=== PATIENT | male | born 1970 | race Caucasian/White ===

== ENCOUNTER 2019-03-06 12:02 | Emergency (ER) | payer SELFPAY ==
[2019-03-06 12:07] VITALS: BP 157/107; PULSE 83; RESP 18; TEMP 36.4; O2SAT 96; BMI 31.6
--- NOTE | 2019-03-06 12:12 | W.ED.GENADLT ---
HPI - General Adult General: Chief complaint: General Medical Stated complaint: Med refill Time Seen by Provider: 03/06/19 12:08 Source: patient Mode of arrival: ambulatory Limitations: no limitations Review of Systems General: Reports: 10 or more systems reviewed and unremarkable except in HPI and below Musc: Reports: joint pain (multiple joint pain) PFSH ED PFSH: Statuses (acute, chronic, etc) shown below reflect problem list status as previously entered and may not be historically accurate Social History Smoking and tobacco status: current every day smoker Physical Exam Const: COMMON NORMALS: no apparent distress and oriented x3 GENERAL APPEARANCE: cooperative HENMT: COMMON NORMALS: normocephalic, external ears normal, EAC's normal, TM's normal bilaterally and external nose normal HEAD & SCALP: normal to inspection and normocephalic FACE & SINUS: normal facial exam NOSE: external nose normal GENERAL EAR: hearing not grossly impaired EXTERNAL EAR: Yes external ears normal EXTERNAL AUDITORY CANAL: EAC's normal TYMPANIC MEMBRANE: TM's normal bilaterally MOUTH: oral and palatal mucosa normal THROAT: posterior oropharynx normal Eye: COMMON NORMALS: PERRL and EOMs intact bilaterally PUPIL: Yes PERRL Neck/C-Spine: COMMON NORMALS: full ROM and no lymphadenopathy Lymph: LYMPHATIC: no lymphedema noted Chest: COMMONS NORMALS: inspection of chest normal and palpation of chest normal Resp: COMMON NORMALS: normal respiratory effort and clear to auscultation bilaterally AUSCULTATION: clear to auscultation bilaterally Cardio: COMMON NORMALS: regular rate and regular rhythm RATE: regular rate RHYTHM: regular rhythm GI: COMMON NORMALS: normal to inspection, nondistended, normoactive bowel sounds and non-tender : COMMON NORMALS: Yes no CVA tenderness BLADDER/KIDNEY EXAM: Yes no CVA tenderness Back/Pelvis: COMMON NORMALS: no CVA tenderness and thoracic and lumbar spine normal to inspection Extremity: COMMON NORMALS: normal to inspection GENERAL: No edema Neuro: COMMON NORMALS: oriented x3, moves all extremities and no focal motor deficits Psych: COMMON NORMALS: mental status grossly normal and cooperative Skin: COMMON NORMALS: no rashes or lesions noted GENERAL SKIN EXAM: no rashes or lesions noted Course Vital Signs: Vital signs: Vital Signs Temperature 97.6 F 03/06/19 12:07 Pulse Rate 83 03/06/19 12:07 Respiratory Rate 18 03/06/19 12:07 Blood Pressure 157/107 03/06/19 12:07 Pulse Oximetry 96 03/06/19 12:07 MDM - General Adult MDM Narrative: Medical decision making narrative: Patient comes in today with complaints of joint pain in the wrist, hands, ankles. Patient reports been diagnosed with osteoarthritis. Patient has ran out of his meloxicam and folic acid. Exam notes no significant redness or swelling of the joints. Respirations are even lungs are clear to auscultation. Skin is warm and dry. Differential diagnosis includes ran out of medication, osteoarthritis, gout, rheumatoid arthritis. Patient was given a dose of dexamethasone due to the flare of pain that he is reported. We will also give refills for his meloxicam and folic acid. Case management will assist in referral to primary care which patient appreciated. Discharge Plan Discharge Patient Disposition: Home, Self-Care Clinical Impression: Has run out of medications Osteoarthritis Qualifiers: Osteoarthritis location: wrist Osteoarthritis type: primary Laterality: bilateral Qualified Code(s): M19.031 - Primary osteoarthritis, right wrist Condition: Stable Prescriptions: New folic acid 1 mg tablet 1 mg PO DAILY Qty: 14 RF: 0 meloxicam 15 mg tablet 15 mg PO DAILY Qty: 14 RF: 0 Discharge Orders: Discharge Order (Routine); Ordered 03/06/19 Ordered By: Rohith Fortune Referrals: Eddi Vázquez MD [Family Provider] - Discharge Diet: Usual diet Discharge Activity: Increase activity as tolerated Patient Instructions: Osteoarthritis (ED) Activity Restrictions/Additional Instructions: Activity as tolerated Gentle stretching and range of motion Ice or heat for further comfort Follow-up with primary care for further treatment Case management will contact you with assist for primary care referral Coding Level of Care Code ED Hybrid Technologist for Randg Fwd Exam Problem Focused
[2019-03-06] MEDS: dexamethasone 10 mg/mL INJ IM (12:23)
--- NOTE | 2019-03-07 15:55 | DCPLANNER ---
manager sterile had message to speak with patient about getting established with a primary care physician. manager sterile called patient at [phone] and left a voicemail for patient to return nurse outreach case manager phone call.
== END 2019-03-06 12:25 | disposition home or self-care (01) ==
PROVIDERS: Emergency Provider Nurse Practitioner Family; Family Provider Family Medicine
DX: Z76.0 Encounter for issue of repeat prescription (principal); M19.032 Primary osteoarthritis, left wrist; M19.031 Primary osteoarthritis, right wrist; F17.210 Nicotine dependence, cigarettes, uncomplicated
CPT/HCPCS: 96372; 99281; J1100

== ENCOUNTER 2019-03-24 09:18 | Emergency (ER) | payer SELFPAY ==
[2019-03-24 09:35] VITALS: BP 169/106; PULSE 86; RESP 16; TEMP 36.5; O2SAT 99; BMI 31.6
--- NOTE | 2019-03-24 09:42 | W.ED.GENADLT ---
HPI - General Adult General: Chief complaint: General Medical Stated complaint: NEEDS MEDS Time Seen by Provider: 03/24/19 09:42 Source: patient Mode of arrival: ambulatory Limitations: no limitations History of Present Illness: HPI narrative: Patient comes in requesting refill for his meloxicam and folic acid. Patient states that he has yet to get referred to primary care. Reviewed with case management she states she had attempted to call but he did not return her call. Patient was seen 1 month ago in the emergency room for similar visit. Review of Systems General: Reports: 10 or more systems reviewed and unremarkable except in HPI and below Musc: Reports: joint pain PFSH ED PFSH: Statuses (acute, chronic, etc) shown below reflect problem list status as previously entered and may not be historically accurate Social History Smoking and tobacco status: current every day smoker Physical Exam Const: COMMON NORMALS: no apparent distress and oriented x3 GENERAL APPEARANCE: cooperative HENMT: COMMON NORMALS: normocephalic, external ears normal, EAC's normal, TM's normal bilaterally and external nose normal HEAD & SCALP: normal to inspection and normocephalic FACE & SINUS: normal facial exam NOSE: external nose normal GENERAL EAR: hearing not grossly impaired EXTERNAL EAR: Yes external ears normal EXTERNAL AUDITORY CANAL: EAC's normal TYMPANIC MEMBRANE: TM's normal bilaterally MOUTH: oral and palatal mucosa normal THROAT: posterior oropharynx normal Eye: COMMON NORMALS: PERRL and EOMs intact bilaterally PUPIL: Yes PERRL Neck/C-Spine: COMMON NORMALS: full ROM and no lymphadenopathy Lymph: LYMPHATIC: no lymphedema noted Chest: COMMONS NORMALS: inspection of chest normal and palpation of chest normal Resp: COMMON NORMALS: normal respiratory effort and clear to auscultation bilaterally AUSCULTATION: clear to auscultation bilaterally Cardio: COMMON NORMALS: regular rate and regular rhythm RATE: regular rate RHYTHM: regular rhythm GI: COMMON NORMALS: normal to inspection, nondistended, normoactive bowel sounds and non-tender : COMMON NORMALS: Yes no CVA tenderness BLADDER/KIDNEY EXAM: Yes no CVA tenderness Back/Pelvis: COMMON NORMALS: no CVA tenderness and thoracic and lumbar spine normal to inspection Extremity: COMMON NORMALS: normal to inspection GENERAL: No edema Neuro: COMMON NORMALS: oriented x3, moves all extremities and no focal motor deficits Psych: COMMON NORMALS: mental status grossly normal and cooperative Skin: COMMON NORMALS: no rashes or lesions noted GENERAL SKIN EXAM: no rashes or lesions noted Course Vital Signs: Vital signs: Vital Signs Temperature 97.7 F 03/24/19 09:35 Pulse Rate 86 03/24/19 09:35 Respiratory Rate 16 03/24/19 09:35 Blood Pressure 169/106 03/24/19 09:35 Pulse Oximetry 99 03/24/19 09:35 MDM - General Adult MDM Narrative: Medical decision making narrative: Patient comes in today for concerns of needing refills on medication for arthritis. Exam notes no significant abnormalities. Patient moves all extremities well. Patient does have some increased joint size to the digits of the hand bilaterally. Differential diagnosis includes osteoarthritis, rheumatoid arthritis, malingering. Discussed with case management regarding patient's follow-up with primary care. Nora, business case analyst, visited with patient regarding primary care referral. Patient will be given refill of medication and recommended for return to the ER as needed for worsening signs and symptoms or new complaints. Patient was given a dose of dexamethasone for arthritic flare. Discharge Plan Discharge Patient Disposition: Home, Self-Care Clinical Impression: Osteoarthritis Qualifiers: Osteoarthritis location: unspecified site Osteoarthritis type: unspecified Qualified Code(s): M19.90 - Unspecified osteoarthritis, unspecified site Condition: Stable Prescriptions: New meloxicam 15 mg tablet 15 mg PO DAILY Qty: 20 RF: 0 folic acid 1 mg tablet 1 mg PO DAILY Qty: 20 RF: 0 No Action folic acid 1 mg tablet 1 mg PO DAILY Qty: 14 RF: 0 meloxicam 15 mg tablet 15 mg PO DAILY Qty: 14 RF: 0 Discharge Orders: Discharge Order (Routine); Ordered 03/24/19 Ordered By: Rohith Fortune Referrals: Eddi Vázquez MD [Family Provider] - Discharge Diet: Usual diet Discharge Activity: Resume usual activity Activity Restrictions/Additional Instructions: Follow-up with primary care Return to ER as needed for new concerns Coding Level of Care Code ED Alley Cleaner for Andres Chaudhry Exam Problem Focused
[2019-03-24] MEDS: dexamethasone 10 mg/mL INJ IM (10:19)
--- NOTE | 2019-03-24 11:16 | DCPLANNER ---
marketing manager health communications was asked to speak with patient about getting established with a primary care physician. marketing manager health communications spoke with patient, he stated that he did want to get established with a primary care physician. marketing manager health communications called the [facility] clinic, spoke with Crystal, a follow up is scheduled for Friday, March 29, 2019 at 9:40. marketing manager health communications informed patient of the scheduled appointment.
--- NOTE | 2019-04-08 15:39 | DCPLANNER ---
Patient did attend appointment scheduled with [facility].
== END 2019-03-24 10:35 | disposition home or self-care (01) ==
PROVIDERS: Emergency Provider Nurse Practitioner Family; Family Provider Family Medicine
DX: M19.90 Unspecified osteoarthritis, unspecified site (principal); F17.210 Nicotine dependence, cigarettes, uncomplicated
CPT/HCPCS: 96372; 99281; 99283; J1100

== ENCOUNTER 2019-03-31 13:07 | Outpatient (CLI) | payer SELFPAY ==
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
== END 2019-03-31 13:08 | disposition home or self-care (01) ==
PROVIDERS: Family Provider Family Medicine; PCP Family Medicine; Visit Provider Family Medicine
DX: M25.579 Pain in unspecified ankle and joints of unspecified foot (principal)
CPT/HCPCS: 73600

== ENCOUNTER 2021-06-03 13:17 | Emergency (ER) | payer SELFPAY ==
[2021-06-03 13:24] VITALS: BP 145/96; PULSE 109; RESP 18; TEMP 36.7; O2SAT 97; BMI 34.9
[2021-06-03 13:32] LABS: Glucose Point of Care 111 mg/dL (70-110)
[2021-06-03 15:00] VITALS: BP 119/83; PULSE 98; RESP 16; O2SAT 96
--- NOTE | 2021-06-03 15:05 | ED_ITS ---
HPI - General Adult General: Chief complaint: General Medical Stated complaint: arthitis pain Time Seen by Provider: 06/03/21 14:33 History of Present Illness: Patient complains about joint pain and increased urination Associated symptoms: Deny chest pain, dyspnea, headache(s), nausea, rash or vomiting Review of Systems Const: Denies: fever(s), chills or body aches Eyes: Denies: eye discomfort ENMT: Denies: throat pain Card: Denies: chest pain Resp: Denies: dyspnea GI: Denies: abdominal pain, nausea or vomiting : Reports: urinary frequency (Maybe he has diabetes, ) Musc: Reports: joint pain (Planes about hand and knee pain hands being the worst he feels like they ge) Skin/Breast: Denies: rash Neuro: Denies: headache(s) Psych: Denies: depression or suicidal ideation PFSH ED PFSH: Family History Other Cancer Diabetes Social History Smoking and tobacco status: current every day smoker cigarettes Alcohol intake: current Alcohol intake frequency: 3 or more drinks per day Physical Exam Const: COMMON NORMALS: no acute distress, patient oriented x3 and alert HENMT: COMMON NORMALS: normocephalic and external ears normal HEAD & SCALP: normocephalic EXTERNAL EAR: Yes external ears normal Eye: COMMON NORMALS: EOMs intact bilaterally Neck/C-Spine: COMMON NORMALS: no JVD Resp: COMMON NORMALS: normal respiratory effort and No use of accessory muscles Cardio: COMMON NORMALS: no JVD GI: INSPECTION: Yes normal to inspection Extremity: COMMON NORMALS: normal to inspection and full ROM Neuro: COMMON NORMALS: patient oriented x3 SENSORIUM/ORIENTATION: Yes alert Psych: COMMON NORMALS: mental status grossly normal Skin: COMMON NORMALS: no rashes or lesions noted GENERAL SKIN EXAM: no rashes or lesions noted Course Vital Signs: Vital signs: Vital Signs Temperature 98.1 F 06/03/21 13:24 Pulse Rate 98 06/03/21 15:00 Respiratory Rate 16 06/03/21 15:00 Blood Pressure 119/83 06/03/21 15:00 Pulse Oximetry 96 06/03/21 15:00 MDM - General Adult Medical Decision Making Generalized OA. No signs of diabetes. Patient requesting pain medication and said was provided. Patient encouraged follow-up with [facility]. He has not been going because he said he owes them money. Lab Data Laboratory Results POC Glucose 111 mg/dL (70-110) H 06/03/21 13:30 Discharge Plan Discharge Patient Disposition: Home Clinical Impression: Osteoarthritis, Frequency of urination and polyuria Condition: Stable Prescriptions: New Celebrex 100 mg capsule 200 mg PO BID Qty: 20 0RF Voltaren Arthritis Pain 1 % gel 4 g topical QID Qty: 100 0RF Discontinued meloxicam 15 mg tablet 15 mg PO DAILY Qty: 30 5RF No Action folic acid 1 mg tablet 1 mg PO DAILY Qty: 30 5RF hydroxyzine HCl 25 mg tablet 25 mg PO .at hs PRN (Reason: sleep) Qty: 30 0RF Discharge Orders: Discharge ED (Routine); Ordered 06/03/21 Ordered By: Sean Pollack Discharge Diet: Usual diet Discharge Activity: Resume usual activity Patient Instructions: Hyperglycemia, Osteoarthritis (ED) Activity Restrictions/Additional Instructions: Follow-up with medical provider as directed. Take medications as prescribed. Return to the ER or your medical provider if condition worsens. Please read and understand discharge instructions. If any questions ask please. Coding Level of Care Code ED Blankbook Stitching Machine Operator for Andres Chaudhry
--- NOTE | 2021-06-05 13:45 | DCPLANNER ---
manager educational had message to speak with patient about getting established with a primary care physician, unable to speak with patient or leave a voicemail at this time.
== END 2021-06-03 15:14 | disposition home or self-care (01) ==
PROVIDERS: Emergency Provider Nurse Practitioner Family
DX: M15.9 Polyosteoarthritis, unspecified (principal); R35.0 Frequency of micturition; R35.89 Other polyuria; F17.210 Nicotine dependence, cigarettes, uncomplicated
CPT/HCPCS: 36416; 82962; 99282

== ENCOUNTER → 2021-06-28 14:06 | Outpatient (BNVA) | payer SELFPAY | PROVIDERS: Visit Provider Nurse Practitioner Family | DX: I10 Essential (primary) hypertension (principal); R73.09 Other abnormal glucose | CPT/HCPCS: 80053; 80061; 83036; 84443; 85025 ==

== ENCOUNTER 2022-01-29 17:31 | Emergency (ER) | payer MEDICAID, SELFPAY ==
[2022-01-29 17:59] VITALS: BP 157/95; PULSE 88; RESP 14; TEMP 36.6; O2SAT 97; BMI 34.2
--- NOTE | 2022-01-29 19:04 | W.ED.GENADLT ---
HPI - General Adult General: Chief complaint: General Medical Stated complaint: Arthritis Pain Time Seen by Provider: 01/29/22 18:33 Source: patient Mode of arrival: ambulatory Limitations: no limitations History of Present Illness: Patient presents to the emergency department today for evaluation treatment of polyarthralgia. Patient reports a long history of this over the last couple of years and states the only time he goes to the doctor is primarily to be treated for arthritis pain. Patient states he typically takes meloxicam but does not currently have any. Patient states that the cold weather affects his joints and it has been particularly painful the last week or 2. He denies any known injuries. He has not had any fevers or swollen, red joints. Patient also states he has flareup of sciatica affecting bilateral buttock and wrapping around the lateral thighs to the anterior upper leg and knees bilaterally. Patient is still ambulatory. He denies any tingling or weakness in the lower extremities. Review of Systems General: Reports: 10 or more systems reviewed and unremarkable except in HPI and below Musc: Reports: joint pain, joint swelling and joint stiffness PFSH ED PFSH: Medical History Hypertension Family History Other Cancer Diabetes Social History Smoking and tobacco status: current every day smoker cigarettes Packs smoked per day: 1 Alcohol intake: current Alcohol intake frequency: 3 or more drinks per day Alcohol type: beer Physical Exam Const: COMMON NORMALS: no acute distress, patient oriented x3, healthy appearing and alert HENMT: COMMON NORMALS: normocephalic, atraumatic, hearing grossly normal bilaterally, Normal external nose present and moist oral mucous membranes HEAD & SCALP: normocephalic and atraumatic NOSE: Normal external nose present Eye: COMMON NORMALS: Equal, round and reactive pupils present, EOMs intact bilaterally and conjunctivae normal CONJUNCTIVA: Yes conjunctivae normal PUPIL: Yes Equal, round and reactive pupils present Neck/C-Spine: COMMON NORMALS: full ROM, no meningeal signs and no JVD Lymph: LYMPHATIC: no lymphadenopathy noted Resp: COMMON NORMALS: normal respiratory effort, No retractions and No use of accessory muscles Cardio: COMMON NORMALS: no JVD, regular rate and Peripheral pulses 2+ throughout RATE: regular rate PERIPHERAL PULSES: Peripheral pulses 2+ throughout : COMMON NORMALS: Yes no CVA tenderness BLADDER/KIDNEY EXAM: Yes no CVA tenderness Back/Pelvis: COMMON NORMALS: no CVA tenderness, thoraco-lumbar ROM normal and straight leg raise negative bilaterally Extremity: COMMON NORMALS: normal to inspection, full ROM, no joint enlargement and no calf tenderness GENERAL: Yes normal exam except as noted Neuro: COMMON NORMALS: patient oriented x3, CN's II-XII intact bilaterally, moves all extremities, no focal motor deficits and no sensory deficits noted SENSORIUM/ORIENTATION: Yes alert MENINGEAL SIGNS: Yes no meningeal signs Course Vital Signs: Vital signs: Vital Signs Temperature 97.8 F 01/29/22 17:59 Pulse Rate 88 01/29/22 17:59 Respiratory Rate 14 01/29/22 17:59 Blood Pressure 157/95 01/29/22 17:59 Pulse Oximetry 97 01/29/22 17:59 Oxygen Delivery Me thod 01/29/22 17:59 [facility] - General Adult Medical Decision Making Patient presented to the emergency department today fully ambulatory and weightbearing independently with full range of motion noted on examination. Patient's chart indicated a history of arthritis complaints and evaluations over the last year or two. Patient has previously taken muscle relaxers and NSAIDs with relief and treatment of his pain however, he is out of these medications. Patient denied any new injuries and shows no signs of septic joint concerning with fevers or bright red, swollen joints at this time. We will treat for osteoarthritis with continued use of NSAIDs and muscle relaxers. I also prescribed him Voltaren gel for him to apply to the most sore joints he has on any given day as an extra treatment for his joint discomforts. Patient should follow-up with a primary care doctor to further evaluate his arthritis as it seems to be getting worse over the last couple of years. Return precautions discussed. Differential Diagnosis Osteoarthritis, RA, septic joint, viral illness Discharge Plan Discharge Patient Disposition: Home Clinical Impression: Osteoarthritis involving multiple joints on both sides of body Condition: Stable Prescriptions: New Voltaren Arthritis Pain 1 % gel 4 g topical QID Qty: 100 0RF Rx Instructions: apply to single knee, ankle, foot; for foot includes sole/toes/top of foot meloxicam 15 mg tablet 15 mg PO DAILY MDD 1 Qty: 1 0RF Rx Instructions: Take one tab daily for arthritis pain tizanidine 2 mg capsule 2 mg PO Q8H MDD 3 cap PRN (Reason: muscle spasticity, sciatica) Qty: 30 0RF Rx Instructions: Take 1 cap every 8hrs as needed for sciatica No Action meloxicam 15 mg tablet See Rx Instructions .ROUTE .COMPLEX Qty: 90 0RF Dose Instruction: TAKE ONE TABLET BY MOUTH ONCE DAILY Rx Instructions: TAKE ONE TABLET BY MOUTH ONCE DAILY cyclobenzaprine 10 mg tablet 10 mg PO TID PRN (Reason: muscle spasm) Qty: 20 0RF Discharge Orders: Discharge ED (Routine); Ordered 01/29/22 Ordered By: Purnima Reese Discharge Activity: Limit activity as instructed Coding Level of Care Code ED Repairing Calibrator for Andres Chaudhry
[2022-01-29] MEDS: orphenadrine 30 mg/mL Inj 2 mL 60 MG IM (19:08)
[2022-01-29] MEDS: ketorolac 60 mg/2 mL INJ IM (19:08)
== END 2022-01-29 19:17 | disposition home or self-care (01) ==
PROVIDERS: Emergency Provider Physician Assistant
DX: M15.9 Polyosteoarthritis, unspecified (principal); I10 Essential (primary) hypertension; F17.210 Nicotine dependence, cigarettes, uncomplicated
CPT/HCPCS: 96372; 99284; J1885; J2360

== ENCOUNTER 2022-04-24 11:55 | Emergency (ER) | payer MEDICAID, SELFPAY ==
[2022-04-24 12:48] VITALS: BP 153/99; PULSE 66; RESP 16; O2SAT 98
--- NOTE | 2022-04-24 13:08 | W.ED.BACK ---
HPI - Back Pain/Injury General: Chief Complaint: Back Pain/Injury Stated Complaint: Lower back pain, And leg pain Time Seen by Provider: 04/24/22 12:52 History of Present Illness: Patient is a 51-year-old male comes to the ED with joint pain. Symptoms started 2 days ago. Denies any fall or trauma to cause pain. He states that right before symptoms started he was out putting up a fence for couple days and he thinks that flared up his arthritis. His pain is all throughout his joints in his legs and arms and in his back. He rates his pain currently an 8 out of 10. Associated symptoms: Deny abdominal pain, chills, dysuria, fatigue, fever(s), hematuria, nausea or vomiting Review of Systems Const: Denies: fever(s), chills or fatigue Eyes: Denies: change in vision or eye discomfort ENMT: Denies: throat pain, odynophagia, nasal discharge or nasal congestion Card: Denies: chest pain, palpitations, edema, swelling of feet/ankles, dyspnea on exertion or orthopnea Resp: Denies: dyspnea, productive cough or non-productive cough GI: Denies: abdominal pain, nausea, vomiting, diarrhea, constipation or hematochezia : Denies: flank pain, difficulty urinating, dysuria or hematuria Musc: Reports: joint pain (All throughout legs and arms bilaterally and back); Denies: neck pain, back pain or extremity swelling Skin/Breast: Denies: rash or new lesions Neuro: Denies: headache(s), numbness in extremities or weakness in extremities PFS ED PFSH: Medical History Hypertension Family History Other Cancer Diabetes Social History Smoking and tobacco status: current every day smoker cigarettes Packs smoked per day: 1 Alcohol intake: current Alcohol intake frequency: 3 or more drinks per day Alcohol type: beer Physical Exam Const: COMMON NORMALS: no acute distress, patient oriented x3 and alert HENMT: COMMON NORMALS: normocephalic HEAD & SCALP: normocephalic MOUTH: Normal oral and palatal mucosa present THROAT: posterior oropharynx normal and uvula midline Neck/C-Spine: COMMON NORMALS: supple GENERAL: Yes normal visual inspection Resp: COMMON NORMALS: normal respiratory effort, No retractions, No use of accessory muscles and clear to auscultation bilaterally AUSCULTATION: clear to auscultation bilaterally Cardio: COMMON NORMALS: regular rate, regular rhythm, S1 normal heart sound present, S2 normal heart sound present, No gallops present (Cardio), No clicks present (Cardio), No murmurs present (Cardio) and Peripheral pulses 2+ throughout RATE: regular rate RHYTHM: regular rhythm HEART SOUNDS: S1 normal heart sound present and S2 normal heart sound present PERIPHERAL PULSES: Peripheral pulses 2+ throughout GI: COMMON NORMALS: Normal to inspection, nondistended, normoactive bowel sounds present, Soft to palpation, non-tender and no masses PALPATION: Yes Soft to palpation : COMMON NORMALS: Yes no CVA tenderness BLADDER/KIDNEY EXAM: Yes no CVA tenderness Back/Pelvis: COMMON NORMALS: no CVA tenderness Extremity: COMMON NORMALS: normal to inspection, full ROM and no joint enlargement Neuro: COMMON NORMALS: patient oriented x3 SENSORIUM/ORIENTATION: Yes alert GAIT: Yes Normal gait present Skin: GENERAL SKIN EXAM: dry skin Course Vital Signs: Vital signs: Vital Signs Pulse Rate 66 04/24/22 12:48 Respiratory Rate 16 04/24/22 12:48 Blood Pressure 153/99 04/24/22 12:48 Pulse Oximetry 98 04/24/22 12:48 Oxygen Delivery Me thod 04/24/22 12:48 MDM - Back Pain/Injury Medical Decision Making Patient is a 51-year-old male comes to the ED with joint pain. Symptoms started 2 days ago. Denies any fall or trauma to cause pain. He states that right before symptoms started he was out putting up a fence for couple days and he thinks that flared up his arthritis. His pain is all throughout his joints in his legs and arms and in his back. He rates his pain currently an 8 out of 10. Vitals are stable. Exam of patient is benign and he appears nontoxic and in no acute distress. He was diagnosed with OA involving multiple joints on both sides of body and was stable for discharge home. He was sent home with a prescription for meloxicam, steroid Dosepak and a muscle relaxer. Told to follow-up with his PCP in the next week for reevaluation. Patient understood and agreed with plan. Discharge Plan Discharge Patient Disposition: Home Clinical Impression: Osteoarthritis involving multiple joints on both sides of body Condition: Stable Prescriptions: New meloxicam 15 mg tablet 15 mg PO DAILY PRN (Reason: pain) Qty: 30 0RF cyclobenzaprine 10 mg tablet 10 mg PO BID PRN (Reason: muscle spasm) Qty: 10 0RF Medrol (Tomi) 4 mg tablets,dose pack See Rx Instructions .ROUTE .COMPLEX Qty: 21 0RF Rx Instructions: orally per package directions No Action meloxicam 15 mg tablet See Rx Instructions .ROUTE .COMPLEX Qty: 90 0RF Dose Instruction: TAKE ONE TABLET BY MOUTH ONCE DAILY Rx Instructions: TAKE ONE TABLET BY MOUTH ONCE DAILY cyclobenzaprine 10 mg tablet 10 mg PO TID PRN (Reason: muscle spasm) Qty: 20 0RF Voltaren Arthritis Pain 1 % gel 4 g topical QID Qty: 100 0RF Rx Instructions: apply to single knee, ankle, foot; for foot includes sole/toes/top of foot meloxicam 15 mg tablet 15 mg PO DAILY MDD 1 Qty: 1 0RF Rx Instructions: Take one tab daily for arthritis pain tizanidine 2 mg capsule 2 mg PO Q8H MDD 3 cap PRN (Reason: muscle spasticity, sciatica) Qty: 30 0RF Rx Instructions: Take 1 cap every 8hrs as needed for sciatica Discharge Orders: Discharge ED (Routine); Ordered 04/24/22 Ordered By: Neel Wang Discharge Diet: Regular Discharge Activity: Increase activity as tolerated Patient Instructions: Osteoarthritis (DC) Activity Restrictions/Additional Instructions: Follow-up with medical provider as directed in the next 7 to 10 days for reevaluation. Rest and ice sore areas. Take medications as prescribed. Return to the ER or your medical provider if condition worsens. Please read and understand discharge instructions. Thank you for choosing [facility] for your healthcare needs today. Please realize this is an emergency room and that we are providing you with a medical screening exam and this may not be complete and all inclusive of all the testing and or work up that you may need to determine your ailment or severity of your illness. It is very important that you follow up as instructed or that you return to the Emergency Department should you have concerns or if your condition changes or worsens in any way. Coding Level of Care Code ED Ambulance Officer for Andres Chaudhry
[2022-04-24] MEDS: ketorolac 60 mg/2 mL INJ IM (13:25)
[2022-04-24] MEDS: orphenadrine 30 mg/mL Inj 2 mL 60 MG IM (13:25)
[2022-04-24] MEDS: dexamethasone 10 mg/mL INJ IM (13:25)
--- NOTE | 2022-04-25 15:23 | PC.SOCIAL ---
Addendum entered by Susan Ochoa 04/28/22 13:13: manager freelance called patient due to no primary care physician -no answer at this time. Original Note: PCP Appt Attempted to reach contact to offer PCP appt. No answer at this time.
--- NOTE | 2022-04-29 14:39 | DCPLANNER ---
district manager called patient due to no primary care physician - patient stated that his made him appointment with a provider, he is unsure of providers name.
== END 2022-04-24 13:31 | disposition home or self-care (01) ==
PROVIDERS: Emergency Provider Physician Assistant
DX: M15.8 Other polyosteoarthritis (principal); I10 Essential (primary) hypertension; F17.210 Nicotine dependence, cigarettes, uncomplicated
CPT/HCPCS: 96372; 99284; J1100; J1885; J2360

== ENCOUNTER 2022-06-04 13:36 | Emergency (ER) | payer MEDICAID, SELFPAY ==
[2022-06-04 13:49] VITALS: BP 157/95; PULSE 88; TEMP 36.6; O2SAT 96; BMI 33.6
--- NOTE | 2022-06-04 13:52 | XR_ITS ---
WS: [id number] Portable AP upright chest, 06/04/2022 Clinical Data: HTN Comparison: None. Findings: No nodules, masses or effusions are seen. The heart is normal. The pulmonary vascularity is not increased. No pneumonia or pneumothorax is seen. The aortic arch and descending thoracic aorta s how mild tortuosity. XR/XR chest 1V portable [id number] Impression: Atherosclerosis.
[2022-06-04 14:22] LABS: Basophils # 0.1 10^3/uL (0.0-0.1); Eosinophils # 0.3 10^3/uL (0.0-0.8); Eosinophils % 3.7 %; Hemoglobin 15.3 g/dL (11.7-16.6); Lymphocytes % 27.2 %; Mean Corpuscular HGB Conc 34.8 g/dL (30.0-36.0); Mean Corpuscular Hemoglobin 32.7 pg (28.0-34.0); Mean Platelet Volume 9.4 fL (7.4-10.4); Monocytes # 0.4 10^3/uL (0.2-0.9); Monocytes % 5.5 %; Neutrophils # 4.48 10^3/uL (1.8-7.7); Neutrophils % 62.2 %; Nucleated Red Blood Cells % 0 %; Platelet Count 249 10^3/cmm (130-400); Red Blood Count 4.68 10^6/uL (4.1-5.3); Red Cell Distribution Width 11.4 % (12.1-15.1); White Blood Count 7.2 10^3/uL (4.0-10.0)
[2022-06-04 14:25] LABS: Add Urine Microscopic? NO; Bilirubin Urine Neg (Negative); Blood Urine Neg (Negative); Charge for UA Resulting for Rev; Glucose Urine UA 1+ (Normal); Ketones Urine Negative (Negative); Leukocyte Esterase Urine Negative (Negative); Nitrate Urine Negative (Negative); Protein Urine Neg (Negative); Urine Appearance Clear (CLEAR); Urine Color Yellow (Yellow); Urobilinogen Urine 1 mg/dL (Negative); pH Urine 5 (5-7)
[2022-06-04 14:50] LABS: Alanine Aminotransferase 156 U/L (0-41); Alkaline Phosphatase 79 U/L (40-130); Anion Gap 16.9 (5-19); Aspartate Amino Transferase 100 U/L (0-40); Blood Urea Nitrogen 8 mg/dL (6-20); Carbon Dioxide 22 mmol/L (22-29); Chloride 102 mmol/L (98-107); Glomerular Filtration Rate 118.4 mL/min (90-130); Glucose 159 mg/dL (65-115); NT Pro B Type Natriuretic Pept 45 pg/mL (0-125); Osmolality Calculated 286 mOsm/kg (285-295); Potassium 3.9 mmol/L (3.5-5.1); Sodium 137 mmol/L (136-145); Total Bilirubin 0.6 mg/dL (0.15-1.2)
[2022-06-04 15:21] VITALS: BP 164/120; PULSE 86; RESP 16; O2SAT 95
--- NOTE | 2022-06-04 15:36 | ECG_ITS ---
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 Measurements Intervals [place] Rate: 80 P: 22 [place]: 160 QRS: 22 QRSD: 105 T: 30 QT: 392 QTc: 454 Interpretive Statements SINUS RHYTHM No previous ECG available for comparison Electronically Signed On 06-06-2022 1:29:15 CDT by Dexter Zhong M.D. [id number]
[2022-06-04 15:51] LABS: Troponin T (5th) Once 12 ng/L (0-15)
--- NOTE | 2022-06-04 16:23 | W.ED.GENADLT ---
HPI - General Adult General: Chief complaint: General Medical Stated complaint: joint pain/state high BP Time Seen by Provider: 06/04/22 15:22 History of Present Illness: Patient with a history of elevated blood pressure, elevated blood glucose, alcohol abuse, tobacco abuse, arthritis, chronic pain presents emergency department due to elevated blood pressure. Patient states that he recently started seeing a doctor again and was advised to check his blood pressure twice a day, he has been keeping a log and noted it to be elevated to 152/108 this morning and presents to the emergency department for further work-up and management. He denies any chest pain, shortness of breath, nausea, vomiting, headache, or visual changes, but does state that he was a little bit lightheaded this morning getting out of bed. He denies being on any medications aside from meloxicam for chronic pain. He also complains of chronic pain that has been going on for several years in his left shoulder, bilateral wrists, right knee, and left ankle. No other modifying factors, no other associated symptoms. Review of Systems General: Reports: 10 or more systems reviewed and unremarkable except in HPI and below PFSH ED PFSH: Medical History Hypertension Family History Other Cancer Diabetes Social History Smoking and tobacco status: current every day smoker cigarettes Packs smoked per day: 1 Alcohol intake: current Alcohol intake frequency: 3 or more drinks per day Alcohol type: beer Physical Exam Const: COMMON NORMALS: no acute distress and patient oriented x3; negative for healthy appearing GENERAL APPEARANCE: cooperative, disheveled, ill appearing (Chronically) and appears older than stated age NUTRITIONAL APPEARANCE: obese centrally obese ORIENTATION/CONSCIOUSNESS: Yes awake HENMT: COMMON NORMALS: normocephalic, atraumatic, hearing grossly normal bilaterally, external ears normal and Normal external nose present HEAD & SCALP: normocephalic and atraumatic FACE & SINUS: normal facial exam NOSE: Normal external nose present EXTERNAL EAR: Yes external ears normal MOUTH: Normal oral and palatal mucosa present THROAT: posterior oropharynx normal Eye: COMMON NORMALS: Equal, round and reactive pupils present and EOMs intact bilaterally PUPIL: Yes Equal, round and reactive pupils present Neck/C-Spine: COMMON NORMALS: supple GENERAL: Yes normal visual inspection CERVICAL SPINE: No Cervical spine tenderness and No step off deformity Chest: COMMONS NORMALS: normal inspection of the chest Resp: COMMON NORMALS: normal respiratory effort, No retractions, No use of accessory muscles and clear to auscultation bilaterally AUSCULTATION: clear to auscultation bilaterally Cardio: COMMON NORMALS: regular rate, regular rhythm and Peripheral pulses 2+ throughout RATE: regular rate RHYTHM: regular rhythm PERIPHERAL PULSES: Peripheral pulses 2+ throughout GI: COMMON NORMALS: Normal to inspection, nondistended, normoactive bowel sounds present, Soft to palpation and non-tender INSPECTION: Yes central obesity PALPATION: Yes Soft to palpation and Yes Hepatosplenomegaly present : COMMON NORMALS: Yes no CVA tenderness BLADDER/KIDNEY EXAM: Yes no CVA tenderness Back/Pelvis: COMMON NORMALS: no CVA tenderness and thoracic and lumbar spine normal to inspection THORACIC SPINE/UPPER BACK: Yes normal to inspection LUMBAR SPINE/LOWER BACK: Yes normal to inspection Extremity: COMMON NORMALS: full ROM GENERAL: No clubbing and No cyanosis RIGHT UPPER EXTREMITY: Yes wrist Right wrist: Yes inspection (Normal), Yes ROM (Intact) and Yes neurovascular exam (Normal) LEFT UPPER EXTREMITY: Yes wrist Left wrist: Yes inspection (Normal), Yes ROM (Intact) and Yes neurovascular exam (Normal) RIGHT LOWER EXTREMITY: Yes knee joint Right knee: Yes inspection (Chronic effusion), Yes palpation (Nontender) and Yes ROM (Pain limited) LEFT LOWER EXTREMITY: Yes ankle joint Left ankle: Yes inspection (Normal), Yes palpation (Mild tenderness), Yes ROM (Pain limited) and Yes neurovascular exam (Intact) Neuro: COMMON NORMALS: patient oriented x3, moves all extremities, no focal motor deficits and no sensory deficits noted Psych: COMMON NORMALS: mental status grossly normal, Normal thought process present, cooperative and activity/motor behavior normal APPEARANCE: Yes unkempt and Yes disheveled ATTITUDE: Yes calm THOUGHT PROCESS: Normal thought process present Skin: COMMON NORMALS: no rashes or lesions noted GENERAL SKIN EXAM: no rashes or lesions noted Course Vital Signs: Vital signs: Vital Signs Temperature 97.9 F 06/04/22 13:49 Pulse Rate 86 06/04/22 15:21 Respiratory Rate 16 06/04/22 15:21 Blood Pressure 164/120 06/04/22 15:21 Pulse Oximetry 95 06/04/22 15:21 Oxygen Delivery Me thod Room Air 06/04/22 15:21 MDM - General Adult Medical Decision Making Concern for untreated hypertension as well as impaired glucose tolerance/prediabetes versus type 2 diabetes. I had an extensive discussion with the patient and his regarding lifestyle modification as well as the need for follow-up for both the elevated blood pressure and elevated blood sugar and glucosuria. I also emphasized the importance of cutting back on alcohol and smoking cessation. Will start the patient on Norvasc here in the emergency department and give him a prescription, advised him to follow-up closely with his primary care doctor. Patient advised to follow-up as directed, return to the emergency department with any new or worsening symptoms or if unable to follow-up as directed or tolerate p.o. intake. Patient verbalized understanding and agreement with this plan, all questions answered. Lab Data 06/04/22 14:00 06/04/22 14:00 Radiology Impressions Chest X-Ray 06/04/22 13:52 Impression: Atherosclerosis. Laboratory Results WBC 7.2 10^3/uL (4.0-10.0) 06/04/22 14:00 RBC 4.68 10^6/uL (4.1-5.3) 06/04/22 14:00 Hgb 15.3 g/dL (11.7-16.6) 06/04/22 14:00 Hct 44.0 % (42.0-52.0) 06/04/22 14:00 MCV 94.0 fl (80-94) 06/04/22 14:00 MCH 32.7 pg (28.0-34.0) 06/04/22 14:00 MCHC 34.8 g/dL (30.0-36.0) 06/04/22 14:00 RDW 11.4 % (12.1-15.1) L 06/04/22 14:00 Plt Count 249 10^3/cmm (130-400) 06/04/22 14:00 MPV 9.4 fL (7.4-10.4) 06/04/22 14:00 Neut % (Auto) 62.2 % 06/04/22 14:00 Lymph % (Auto) 27.2 % 06/04/22 14:00 Cavalier % (Auto) 5.5 % 06/04/22 14:00 Eos % (Auto) 3.7 % 06/04/22 14:00 Baso % (Auto) 1.0 % 06/04/22 14:00 Neut # (Auto) 4.48 10^3/uL (1.8-7.7) 06/04/22 14:00 Lymph # (Auto) 2.0 10^3/uL (0.8-4.8) 06/04/22 14:00 Cavalier # (Auto) 0.4 10^3/uL (0.2-0.9) 06/04/22 14:00 Eos # (Auto) 0.3 10^3/uL (0.0-0.8) 06/04/22 14:00 Baso # (Auto) 0.1 10^3/uL (0.0-0.1) 06/04/22 14:00 Nucleated RBC % (auto) 0 % 06/04/22 14:00 Nucleated RBCs # 0.0 /100WBC 06/04/22 14:00 Sodium 137 mmol/L (136-145) 06/04/22 14:00 Potassium 3.9 mmol/L (3.5-5.1) 06/04/22 14:00 Chloride 102 mmol/L (98-107) 06/04/22 14:00 Carbon Dioxide 22 mmol/L (22-29) 06/04/22 14:00 Anion Gap 16.9 (5-19) 06/04/22 14:00 BUN 8 mg/dL (6-20) 06/04/22 14:00 Creatinine 0.7 mg/dL (0.7-1.2) 06/04/22 14:00 GFR Calculation 118.4 mL/min (90-130) 06/04/22 14:00 Glucose 159 mg/dL (65-115) H 06/04/22 14:00 Calculated Osmolality 286 mOsm/kg (285-295) 06/04/22 14:00 Calcium 9.0 mg/dL (8.5-10.5) 06/04/22 14:00 Total Bilirubin 0.6 mg/dL (0.15-1.2) 06/04/22 14:00 AST 100 U/L (0-40) H 06/04/22 14:00 ALT 156 U/L (0-41) H 06/04/22 14:00 Alkaline Phosphatase 79 U/L (40-130) 06/04/22 14:00 Troponin T Gen 5 ng/L 12 ng/L (0-15) 06/04/22 14:00 NT-Pro-B Natriuret Pep 45 pg/mL (0-125) 06/04/22 14:00 Total Protein 7.0 g/dL (6.6-8.7) 06/04/22 14:00 Albumin 4.0 g/dL (3.5-5.2) 06/04/22 14:00 Globulin 3.0 g/dL (1.3-4.6) 06/04/22 14:00 Urine Color Yellow (Yellow) 06/04/22 14:00 Urine Appearance Clear (CLEAR) 06/04/22 14:00 Urine pH 5 (5-7) 06/04/22 14:00 Ur Specific [place] 1.020 (1.005-1.030) 06/04/22 14:00 Urine Protein Neg (Negative) 06/04/22 14:00 Urine Glucose (UA) 1+ (Normal) H 06/04/22 14:00 Urine Ketones Negative (Negative) 06/04/22 14:00 Urine Blood Neg (Negative) 06/04/22 14:00 Urine Nitrate Negative (Negative) 06/04/22 14:00 Urine Bilirubin Neg (Negative) 06/04/22 14:00 Urine Urobilinogen 1 mg/dL (Negative) H 06/04/22 14:00 Ur Leukocyte Esterase Negative (Negative) 06/04/22 14:00 Discharge Plan Discharge Patient Disposition: Home Clinical Impression: Elevated glucose level, Body aches, Alcohol abuse, Tobacco abuse Hypertension Qualifiers: Hypertension type: unspecified Qualified Code(s): I10 - Essential (primary) hypertension Condition: Stable Prescriptions: New Norvasc 10 mg tablet 10 mg PO DAILY Qty: 30 0RF No Action meloxicam 15 mg tablet 15 mg PO DAILY PRN (Reason: pain) Qty: 30 0RF Discharge Orders: Discharge ED (Routine); Ordered 06/04/22 Ordered By: Kyler Doss Referrals: Patricio Jj MD [Primary Care Provider] - 1 week Patient Instructions: Pain Management, Abuse of Alcohol (ED), How to Stop Smoking (ED), Hypertension (ED), Diabetes and Exercise (ED), Diabetic Kidney Disease (ED), Amlodipine (By mouth) Coding Level of Care Code ED Pumper Gager Apprentice for Andres Chaudhry
[2022-06-04 16:30] VITALS: BP 161/102; PULSE 85; O2SAT 94
[2022-06-04] MEDS: amlodipine 10 mg Tablet PO (16:33)
[2022-06-04 16:59] VITALS: BP 156/97; PULSE 74; O2SAT 95
== END 2022-06-04 17:00 | disposition home or self-care (01) ==
PROVIDERS: Family Medicine; Emergency Provider Emergency Medicine; PCP Family Medicine
DX: I10 Essential (primary) hypertension (principal); R52 Pain, unspecified; R73.9 Hyperglycemia, unspecified; F17.210 Nicotine dependence, cigarettes, uncomplicated
CPT/HCPCS: 36415; 71045; 80053; 81003; 83880; 84484; 85025; 93005; 99285

== ENCOUNTER 2022-06-19 09:20 | Outpatient (CLI) | payer MEDICAID, SELFPAY ==
--- NOTE | 2022-06-19 09:30 | MR_ITS ---
WS: [id number] EXAMINATION: MR shoulder LT wo con* [id number] ORDER DATE: 06/19/2022 9:48 AM COMPARISON: None. HISTORY: pain CONTRAST: None. TECHNIQUE: Axial T2 STAR, coronal proton density fat sat, sagittal T2 fat sat, sagittal proton densit y fat sat, axial proton density fat sat, coronal T2 fat sat, and coronal T1 performed. After contrast , axial T1 fat sat, coronal T1 fat sat, and sagittal T1 fat sat were performed. FINDINGS: Advanced degenerative arthritis AC joint. Moderate downsloping acromion. Narrowing of the subacromial space. Synovial thickening. Mild edema at the AC joint. Small amount of subacromial and subdeltoid f luid. Evidence of prior postoperative changes in the humeral head with rotator cuff repair. Evidence of loretta or high-grade rotator cuff tear. Anterior fibers supraspinatus appear intact. Large defect in the mid supraspinatus tendon retraction to the level of the glenohumeral joint suspicious for recurrent tear . Infraspinatus has been repaired and appears intact distally with a tiny tear at the distal insertio n. Teres minor appears intact. Small amount of subcoracoid fluid. Fluid and edema involving the subscapularis tendon sheath which appears intact distally with prior in trasubstance insertional tears. Biceps tendon appears intact along the lateral aspect of the bicipita l groove. Proximal biceps tendon difficult to visualize. Tiny intra-articular biceps tendon. Normal bone marrow signal in the humeral head and bony glenoid. Glenoid labrum appears grossly intact . Small joint effusion. MR/MR shoulder LT wo con* [id number] IMPRESSION: 1. Evidence of prior high-grade rotator cuff tear with rotator cuff anchors an d repair. 2. Suspected recurrent high-grade tear involving the majority of the supraspin atus with retraction to the level of the glenohumeral joint. Some fibers are in tact anteriorly. 3. Infraspinatus has been repaired and appears intact distally with small inse rtional tear. 4. Fluid in the subcoracoid bursa with irregularity and thinning of the subsca pularis tendon. Suspected intrasubstance tear and insertional tears involving t he subscapularis. Some this may be chronic or postoperative. 5. Biceps tendon is difficult to visualize proximally due to hardware artifact . This appears anchored along the lateral aspect of the bicipital groove. Tiny intra-articular biceps tendon. 6. Advanced degenerative arthritis AC joint with loss of the subacromial space . Small amount of subacromial subdeltoid fluid.
== END 2022-06-19 09:21 | disposition home or self-care (01) ==
LOC: RAD 09:24
PROVIDERS: PCP Family Medicine; Visit Provider Orthopaedic Surgery
DX: M19.012 Primary osteoarthritis, left shoulder (principal); Z98.890 Other specified postprocedural states
CPT/HCPCS: 73221

== ENCOUNTER → 2022-06-30 14:10 | Outpatient (BNVA) | payer MEDICAID, SELFPAY | PROVIDERS: PCP Family Medicine; Visit Provider Podiatrist Foot & Ankle Surgery | DX: M19.072 Primary osteoarthritis, left ankle and foot (principal); S93.402A Sprain of unspecified ligament of left ankle, initial encounter; W01.0XXA Fall on same level from slipping, tripping and stumbling without subsequent striking against object, initial encounter | CPT/HCPCS: 73610 ==

== ENCOUNTER 2022-06-30 15:36 | Outpatient (CLI) | payer MEDICAID, SELFPAY | END 2022-06-30 15:37 | disposition home or self-care (01) | LOC: SPT 15:38 | PROVIDERS: PCP Family Medicine; Visit Provider Podiatrist Foot & Ankle Surgery | DX: Z46.89 Encounter for fitting and adjustment of other specified devices (principal); M25.572 Pain in left ankle and joints of left foot | CPT/HCPCS: 97760; L1902 ==

== ENCOUNTER 2022-09-08 13:29 | Outpatient (CLI) | payer MEDICAID, SELFPAY ==
--- NOTE | 2022-09-08 13:39 | CT_ITS ---
WS: [id number] LDCT LUNG CANCER SCREENING TECHNIQUE: Noncontrast CT of the chest with coronal and sagittal reformatted images. CLINICAL INFORMATION: NICOTINE DEPENDENCE, CIGARETTES COMPARISON: None. DLP: 126.31 mGy.cm DIvol: Mean CTDIvol: 3.30 (mGy) All CT scans at [facility] use at least one of these dose optimization techniques: automat ed exposure control; mA and/or kV adjustment per patient size (includes targeted exams where dose is matched to clinical indication); or iterative reconstruction. FINDINGS: Lungs are well aerated. No acute pulmonary infiltrates. Tiny noncalcified nodule RIGHT uppe r lobe measuring 3 mm. Tiny calcified granuloma RIGHT lower lobe. Tiny calcified granuloma LEFT upper lobe. Subpleural nodule LEFT upper lobe anteriorly measuring 6.5 mm. Normal caliber thoracic aorta. Mild coronary calcification. No mediastinal or hilar lymphadenopathy. No axillary lymphadenopathy. Adrenal glands are normal. Small esophageal hiatal hernia. Hypertrophic changes thoracic spine. CT/CT lung screening [id number] IMPRESSION:Subpleural nodule LEFT upper lobe anteriorly measuring 6.5 mm. Recom mend 6 month follow-up. LUNG-RADS: 3-Probably Benign FOLLOW UP: 6 Month LDCT
== END 2022-09-08 13:30 | disposition home or self-care (01) ==
LOC: RAD 13:33
PROVIDERS: PCP Family Medicine; Visit Provider Family Medicine
DX: Z12.2 Encounter for screening for malignant neoplasm of respiratory organs (principal); F17.210 Nicotine dependence, cigarettes, uncomplicated
CPT/HCPCS: 71271

== ENCOUNTER 2023-05-14 06:34 | Day surgery (SDC) | payer MEDICAID, SELFPAY ==
--- NOTE | 2023-05-14 06:39 | W.PM.OPSFHP ---
Same Day Surgery H&P Indication for Procedure/HPI DATE OF PROCEDURE: May 14, 2023 CHIEF COMPLAINT/INDICATIONFOR SURGICAL PROCEDURE: Abdominal pain PREOP DIAGNOSIS: GERD PLANNED PROCEDURE: Operation Date: 05/14/23 07:40 Proposed Procedures p [id number] egd K80.20, R10.9,R12(Not Applicable) - Daniel Davis MD Medications/Allergies* Home Medications Medication Instructions Recorded Confirmed Type metformin 500 mg tablet 500 mg PO BID 06/25/22 05/12/23 History budesonide-formoterol HFA 160 inhalation 03/13/23 03/13/23 History mcg-4.5 mcg/actuation aerosol inhaler (Symbicort) cyclobenzaprine 10 mg tablet 10 mg PO TID 03/13/23 05/12/23 History gabapentin 300 mg capsule 300 mg PO TID 03/13/23 05/12/23 History lisinopril 20 mg tablet 20 mg PO ONCE 03/13/23 05/12/23 History triamcinolone acetonide 0.1 % applic topical 03/13/23 03/13/23 History topical cream Allergies/Adverse Reactions Allergy/AdvReac Type Severity Reaction Status Date / Time aspirin Allergy ALGY-Hives Verified 03/13/23 09:14 Pertinent History/Comorbid Conditions* Medical History (Updated 03/13/23 @ 13:11 by Daniel Davis MD) Hypertension Family History (Updated 03/29/19 @ 09:40 by Angélica Bustillos LPN) Diabetes Cancer Social History Smoking and tobacco/nicotine status: current every day tobacco/nicotine user cigarettes Packs smoked per day: 1 Alcohol intake: current Alcohol intake frequency: 3 or more drinks per day Alcohol type: beer Pertinent Exam Findings alert, oriented x 3, clear to auscultation bilaterally and regular rate & rhythm Recommendations Surgery/Procedure today Coding Level of Care Code Acute Code for Chg Fwd
--- NOTE | 2023-05-14 06:50 | ANES.PREANE2 ---
Pre-Anesthetic Assessment Height/Weight: Height 1.85 m Preop Diagnosis: GERD Operation Date: 05/14/23 07:40 Proposed Procedures p [id number] egd K80.20, R10.9,R12(Not Applicable) - Daniel Davis MD Familial anesthetic complications: None Was Beta Milla taken within 24 hours: N/A Was Clonidine taken within 24 hours: N/A Last intake: > 8 hrs Social Alcohol (6 pack of beer a night) and Tobacco Exam alert, oriented x 3, clear to auscultation bilaterally and regular rate & rhythm Airway Mallampati: Class I Dentition: other (no teeth) Pulmonary Chronic Obstructive Pulmonary Disease (coughing fits) CV/HEM Hypertension Metabolic Diabetes Mellitus Anesthetic Plan ASA status: 3 Anesthesia: MAC Risk of > 500 ml blood loss (7ml/kg in children): No Medications/Allergies Home Medications Medication Instructions Recorded Confirmed Last Taken Type meloxicam 15 mg tablet 15 mg PO DAILY PRN pain #30 tabs 04/24/22 05/12/23 05/13/23 Rx amlodipine 10 mg tablet (Norvasc) 10 mg PO DAILY #30 tabs 06/04/22 05/12/23 05/13/23 Rx metformin 500 mg tablet 500 mg PO BID 06/25/22 05/12/23 05/13/23 History ASO Brace #1 ea 06/30/22 03/13/23 05/13/23 Rx budesonide-formoterol HFA 160 1 inh inhalation 03/13/23 03/13/23 05/13/23 History mcg-4.5 mcg/actuation aerosol inhaler (Symbicort) cyclobenzaprine 10 mg tablet 10 mg PO TID 03/13/23 05/12/23 05/13/23 History gabapentin 300 mg capsule 300 mg PO TID 03/13/23 05/12/23 05/13/23 History lisinopril 20 mg tablet 20 mg PO ONCE 03/13/23 05/12/23 05/13/23 History triamcinolone acetonide 0.1 % 1 applic topical DAILY 03/13/23 05/14/23 05/13/23 History topical cream (Triderm) Allergies Allergy/AdvReac Type Severity Reaction Status Date / Time aspirin Allergy ALGY-Hives Verified 05/14/23 06:45 PFSH Anesthesia Medical History Hypertension Family History Other Cancer Diabetes Social History Smoking and tobacco/nicotine status: current every day tobacco/nicotine user cigarettes Packs smoked per day: 1 Alcohol intake: current Alcohol intake frequency: 3 or more drinks per day Alcohol type: beer Data Anesthesia Cardiac Studies: No Data to Display
[2023-05-14 06:52] VITALS: BP 159/116; PULSE 94; RESP 18; TEMP 36.7; O2SAT 96; BMI 33.6
[2023-05-14] MEDS: sodium chloride 0.9% 1,000 ML 30 ML IV (06:59)
[2023-05-14 07:03] LABS: Glucose Point of Care 141 mg/dL (70-110)
[2023-05-14 07:51] VITALS: BP 150/89; PULSE 109; RESP 18; TEMP 36.6; O2SAT 94
[2023-05-14 08:01] VITALS: BP 112/83; PULSE 100; RESP 18; O2SAT 94
[2023-05-14 08:10] VITALS: BP 131/85; PULSE 91; RESP 18; O2SAT 96
--- NOTE | 2023-05-14 08:25 | ANE.PACU2 ---
Inpatient post-anesthesia follow up: Airway intact: Yes Vital signs: Temperature 97.9 F Pulse Rate 91 Respiratory Rate 18 Blood Pressure 131/85 Pulse Oximetry 96 Oxygen Delivery Me thod Room Air Oxygen Flow Rate Fraction of Inspir ed Oxygen Hydration adequate: Yes Nausea and vomiting: No Pain level: 1 Mental status: Baseline
== END 2023-05-14 08:25 | disposition home or self-care (01) ==
PROVIDERS: PCP Family Medicine; Visit Provider Surgery
PROC: 0DJ08ZZ Inspection of Upper Intestinal Tract, Via Natural or Artificial Opening Endoscopic (ICD-10-PCS; CPT 43235; principal; 2023-05-14 07:40)
DX: R12 Heartburn (principal); R10.9 Unspecified abdominal pain; K80.20 Calculus of gallbladder without cholecystitis without obstruction; K44.9 Diaphragmatic hernia without obstruction or gangrene; K21.00 Gastro-esophageal reflux disease with esophagitis, without bleeding; K29.50 Unspecified chronic gastritis without bleeding
CPT/HCPCS: 36416; 43239; 82962; 88305; 88342; J2704; J7030

== ENCOUNTER 2023-06-10 09:16 | Outpatient (CLI) | payer MEDICAID, SELFPAY ==
--- NOTE | 2023-06-10 09:27 | MR_ITS ---
WS: [id number] MRI LUMBAR SPINE NONCONTRAST TECHNIQUE: Sagittal T1, T2 and STIR imaging. Axial T1 and T2 imaging. CLINICAL INFORMATION: SPINAL STENOSIS OF LUMBAR REGION COMPARISON: None. FINDINGS: Mild central canal stenosis in the cervical spine grounds worker imaging at C3-C7. Grade 1 anterolisthesis C7 on T1. This could be further evaluated with cervical spine MRI. Slight indentation cervical cord at C 7-T1. Tiny central protrusion T10-11. L1-L2: Mild annular bulging. Shallow central protrusion. Mild facet arthropathy. Mild LEFT foraminal narrowing. L2-L3: Mild disc bulge with endplate ridging. Spinal canal is patent. Mild facet arthropathy. Moderat e LEFT and mild RIGHT foraminal narrowing. Slight impingement exiting LEFT L2 nerve root with a LEFT foraminal protrusion. L3-L4: Mild disc bulging with endplate ridging. Tiny RIGHT foraminal protrusion with mild RIGHT buddy inal narrowing. Spinal canal and LEFT foramen are patent. Mild facet arthropathy. L4-L5: Mild disc bulge with impingement RIGHT subarticular recess and traversing RIGHT L5 nerve root. Moderate facet arthropathy. RIGHT foraminal protrusion impinges the exiting RIGHT L4 nerve root late rally. LEFT foramen is patent. L5-S1: Mild disc bulging. Mild facet arthropathy with small facet effusions. Moderate bilateral buddy inal narrowing with impingement of the exiting L5 nerve roots bilaterally. Visualized pelvic bony structures: Normal. Paravertebral soft tissues: Normal. IMPRESSION: 1. Mild lumbar curve. No acute compression. 2. Disc bulging L4-5 with impingement RIGHT subarticular recess and traversing RIGHT L5 nerve root. Moderate RIGHT foraminal narrowing at this level impinges the exiting RIGHT L4 nerve root laterally. 3. Moderate bilateral L5-S1 foraminal narrowing impinges the exiting L5 nerve roots bilaterally. 4. Slight narrowing of the RIGHT subarticular recess L3-4. 5. Moderate LEFT L2-3 foraminal narrowing with a small LEFT foraminal protrusion. 6. Mild cervical central canal stenosis on the grounds worker imaging described above.
== END 2023-06-10 09:17 | disposition home or self-care (01) ==
LOC: RAD 09:16
PROVIDERS: PCP Family Medicine; Visit Provider Family Medicine
DX: M48.062 Spinal stenosis, lumbar region with neurogenic claudication (principal); M51.36 Other intervertebral disc degeneration, lumbar region; M48.07 Spinal stenosis, lumbosacral region
CPT/HCPCS: 72148

== ENCOUNTER 2023-12-07 12:43 | Emergency (ER) | payer MEDICAID, SELFPAY ==
--- NOTE | 2023-12-07 12:45 | XRR_ITS ---
PROCEDURE INFORMATION: Exam: XR Right Knee Exam date and time: 12/07/2023 1:17 PM Age: 53 years old Clinical indication: Pain; Knee; Right; Patient HX: PT denies injury TECHNIQUE: Imaging protocol: Radiologic exam of the right knee. Views: 3 views. COMPARISON: CR XR knee RT 3V* [id number] 05/02/2022 9:24 AM FINDINGS: Bones/joints: [id number] tricompartmental DJD of the knee with relatively minor joint space narrowing but bulky marginal osteophyte formation particularly at the patellofemoral joint space. Large joint effusion. Soft tissues: Soft tissue swelling of the anterior knee. 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 Soft tissue swelling of the anterior knee.
[2023-12-07 12:54] VITALS: BP 123/75; PULSE 96; RESP 16; TEMP 36.7; O2SAT 96
[2023-12-07 15:00] VITALS: BP 120/78; PULSE 90; O2SAT 97
[2023-12-07 15:55] LABS: Basophils # 0.1 10^3/uL (0.0-0.1); Basophils % 0.6 %; Eosinophils # 0.4 10^3/uL (0.0-0.8); Eosinophils % 3.5 %; Hematocrit 42.2 % (37-53); Lymphocytes # 3.3 10^3/uL (0.8-4.8); Lymphocytes % 31.6 %; Mean Corpuscular HGB Conc 35.1 g/dL (30-55); Mean Corpuscular Hemoglobin 33.9 pg (27-33); Mean Corpuscular Volume 96.6 fl (82-101); Mean Platelet Volume 8.9 fL (7.4-10.4); Monocytes # 0.8 10^3/uL (0.2-0.9); Monocytes % 7.9 %; Neutrophils # 5.83 10^3/uL (1.8-7.7); Nucleated Red Blood Cells % 0 %; Platelet Count 252 10^3/cmm (157-399); Red Blood Count 4.37 10^6/uL (3.85-5.65); Red Cell Distribution Width 11.6 % (12.1-15.1); White Blood Count 10.39 10^3/uL (3.29-11.43)
[2023-12-07 15:58] LABS: Bilirubin Urine Negative (Negative); Blood Urine Negative (Negative); Glucose Urine UA Negative (Normal); Ketones Urine Negative (Negative); Leukocyte Esterase Urine Negative (Negative); Nitrate Urine Negative (Negative); Protein Urine Negative (Negative); Specific Gravity, Urine 1.004 (1.005-1.030); Urine Appearance Clear (CLEAR); Urine Color Yellow (Yellow); Urobilinogen Urine 0.2 mg/dL (Negative); pH Urine 5.5 (5-7)
[2023-12-07 16:03] LABS: Add Urine Microscopic? YES; Bacteria Urine None Seen /hpf; Hyaline Casts Urine 0-4 /lpf; RBC Urine 0-2 /hpf (0-2); Squamous Epithelial Cell Urine 0-5 /hpf (0-5); WBC Urine 0-5 /hpf (0-5)
[2023-12-07 16:03] LABS: Erythrocyte Sedimentation Rate 15 mm/hr (0-10)
[2023-12-07 16:12] LABS: Alanine Aminotransferase 18 U/L (0-41); Albumin Level 4.2 g/dL (3.5-5.2); Alkaline Phosphatase 69 U/L (40-130); Anion Gap 14.9 (5-19); Aspartate Amino Transferase 18 U/L (0-40); Blood Urea Nitrogen 5 mg/dL (6-20); C Reactive Protein 20.3 mg/L (0.0-4.9); Calcium 8.7 mg/dL (8.5-10.5); Carbon Dioxide 27 mmol/L (22-29); Chloride 92 mmol/L (98-107); Creatinine Clr Calc Pharmacy 218.1142; Globulin 3.9 g/dL (1.3-4.6); Glomerular Filtration Rate 173.3 mL/min (90-130); Glucose 102 mg/dL (65-115); Osmolality Calculated 267 mOsm/kg (285-295); Potassium 3.9 mmol/L (3.5-5.1); Sodium 130 mmol/L (136-145); Total Bilirubin 0.3 mg/dL (0.15-1.2); Total Protein 8.1 g/dL (6.6-8.7)
--- NOTE | 2023-12-07 16:49 | ED_ITS ---
HPI - Extremity Problem 2 General: Chief complaint: Extremity Injury, Lower Stated complaint: rt knee injury Time Seen by Provider: 12/07/23 14:21 History of Present Illness: 53-year-old male presents emergency room with complaint of swelling in his right knee for the last 3 to 4 days to began after he been down on his knees for an extended period of time doing some digging. No skin abrasion or ulceration no fever sweats or chills no puncture wounds. Associated symptoms: Deny chest pain, fever(s) or rash Related Data Home Medications Medication Instructions Recorded Confirmed metformin 500 mg tablet 500 mg PO BID 06/25/22 12/07/23 budesonide-formoterol HFA 160 1 inh inhalation DAILY 03/13/23 12/07/23 mcg-4.5 mcg/actuation aerosol inhaler (Symbicort) cyclobenzaprine 10 mg tablet 10 mg PO TID 03/13/23 12/07/23 gabapentin 300 mg capsule 300 mg PO TID 03/13/23 12/07/23 lisinopril 20 mg tablet 20 mg PO ONCE 03/13/23 12/07/23 triamcinolone acetonide 0.1 % 1 applic topical DAILY 03/13/23 12/07/23 topical cream (Triderm) baclofen 10 mg tablet 10 mg PO TID 12/07/23 12/07/23 celecoxib 200 mg capsule 200 mg PO DAILY 12/07/23 12/07/23 fluticasone propionate 50 2 spray intranasal DAILY 12/07/23 12/07/23 mcg/actuation nasal spray,suspension furosemide 40 mg tablet 40 mg PO DAILY 12/07/23 12/07/23 potassium chloride 20 mEq 20 meq PO DAILY 12/07/23 12/07/23 tablet,extended release(part/cryst) tiotropium bromide 18 mcg capsule 1 cap inhalation DAILY 12/07/23 12/07/23 with inhalation device (Spiriva with HandiHaler) Previous Rx's Medication Instructions Recorded amlodipine 10 mg tablet (Norvasc) 10 mg PO DAILY #30 tabs 06/04/22 ASO Brace #1 ea 06/30/22 pantoprazole 40 mg tablet,delayed 40 mg PO BID #120 tabs 05/14/23 release hydrocodone 5 mg-acetaminophen 325 1 tab PO Q6H PRN pain #20 tabs 12/07/23 mg tablet prednisone 20 mg tablet 20 mg PO TID #15 tabs 12/07/23 Allergies Allergy/AdvReac Type Severity Reaction Status Date / Time aspirin Allergy ALGY-Hives Verified 12/07/23 12:59 Review of Systems 2 Const: Denies: fever(s) or chills Card: Denies: chest pain Resp: Denies: dyspnea GI: Denies: abdominal pain : Denies: dysuria, urinary frequency or urinary urgency Musc: Denies: neck pain or back pain Skin/Breast: Denies: rash PFSH ED 2 PFSH: Medical History Hypertension Family History Other Cancer Diabetes Social History Smoking and tobacco/nicotine status: current every day tobacco/nicotine user cigarettes Packs smoked per day: 1 Alcohol intake: current Alcohol intake frequency: 3 or more drinks per day Alcohol type: beer Physical Exam 2 Const: COMMON NORMALS: no acute distress GENERAL APPEARANCE: cooperative and comfortable ORIENTATION/CONSCIOUSNESS: Yes awake, Yes oriented to person, Yes oriented to place and Yes oriented to time HENMT: COMMON NORMALS: normocephalic, atraumatic and hearing grossly normal bilaterally HEAD & SCALP: normocephalic and atraumatic Resp: COMMON NORMALS: normal respiratory effort, No retractions, No use of accessory muscles and clear to auscultation bilaterally AUSCULTATION: clear to auscultation bilaterally Cardio: COMMON NORMALS: regular rate, regular rhythm and No murmurs present (Cardio) RATE: regular rate RHYTHM: regular rhythm Extremity: COMMON NORMALS: normal to inspection, capillary refill normal, no clubbing, cyanosis or edema, no calf tenderness and no pedal edema OTHER: Examination of the right knee patient has bursal swelling suprapatellar no redness no inflammation no skin breakdown no ulceration laceration or puncture wounds noted. Full range of motion knee ligaments are stable. Neuro: SENSORIUM/ORIENTATION: Yes oriented to person, Yes oriented to place and Yes oriented to time Skin: COMMON NORMALS: no rashes or lesions noted GENERAL SKIN EXAM: no rashes or lesions noted Course 2 Vital Signs: Vital signs: Vital Signs Temperature 98.1 F 12/07/23 12:54 Pulse Rate 100 12/07/23 17:04 Respiratory Rate 16 12/07/23 12:54 Blood Pressure 116/81 12/07/23 17:04 Pulse Oximetry 97 12/07/23 17:04 Oxygen Delivery Me thod Room Air 12/07/23 15:00 MDM - Extremity (Nontraumatic) Medical Decision Making No leukocytosis sed rate minimally elevated. Will discharge patient home with prednisone taper and pain medications. Follow-up with orthopedics. Return if develops fever redness or change in symptoms suspect bursitis is secondary to the trauma being down on his knees while he was working. 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 Soft tissue swelling of the anterior knee. Laboratory Results WBC 10.39 10^3/uL (3.29-11.43) 12/07/23 15:42 RBC 4.37 10^6/uL (3.85-5.65) 12/07/23 15:42 Hgb 14.80 g/dL (11.27-16.99) 12/07/23 15:42 Hct 42.2 % (37-53) 12/07/23 15:42 MCV 96.6 fl (82-101) 12/07/23 15:42 MCH 33.9 pg (27-33) H 12/07/23 15:42 MCHC 35.1 g/dL (30-55) 12/07/23 15:42 RDW 11.6 % (12.1-15.1) L 12/07/23 15:42 Plt Count 252 10^3/cmm (157-399) 12/07/23 15:42 MPV 8.9 fL (7.4-10.4) 12/07/23 15:42 Neut % (Auto) 56.0 % 12/07/23 15:42 Lymph % (Auto) 31.6 % 12/07/23 15:42 Irion % (Auto) 7.9 % 12/07/23 15:42 Eos % (Auto) 3.5 % 12/07/23 15:42 Baso % (Auto) 0.6 % 12/07/23 15:42 Neut # (Auto) 5.83 10^3/uL (1.8-7.7) 12/07/23 15:42 Lymph # (Auto) 3.3 10^3/uL (0.8-4.8) 12/07/23 15:42 Irion # (Auto) 0.8 10^3/uL (0.2-0.9) 12/07/23 15:42 Eos # (Auto) 0.4 10^3/uL (0.0-0.8) 12/07/23 15:42 Baso # (Auto) 0.1 10^3/uL (0.0-0.1) 12/07/23 15:42 Nucleated RBC % (auto) 0 % 12/07/23 15:42 Nucleated RBCs # 0.0 /100WBC 12/07/23 15:42 ESR 15 mm/hr (0-10) H 12/07/23 15:42 Sodium 130 mmol/L (136-145) L 12/07/23 15:42 Potassium 3.9 mmol/L (3.5-5.1) 12/07/23 15:42 Chloride 92 mmol/L (98-107) L 12/07/23 15:42 Carbon Dioxide 27 mmol/L (22-29) 12/07/23 15:42 Anion Gap 14.9 (5-19) 12/07/23 15:42 BUN 5 mg/dL (6-20) L 12/07/23 15:42 Creatinine 0.5 mg/dL (0.7-1.2) L 12/07/23 15:42 GFR Calculation 173.3 mL/min (90-130) H 12/07/23 15:42 Glucose 102 mg/dL (65-115) 12/07/23 15:42 Calculated Osmolality 267 mOsm/kg (285-295) L 12/07/23 15:42 Calcium 8.7 mg/dL (8.5-10.5) 12/07/23 15:42 Total Bilirubin 0.3 mg/dL (0.15-1.2) 12/07/23 15:42 AST 18 U/L (0-40) 12/07/23 15:42 ALT 18 U/L (0-41) 12/07/23 15:42 Alkaline Phosphatase 69 U/L (40-130) 12/07/23 15:42 C-Reactive Protein 20.3 mg/L (0.0-4.9) H 12/07/23 15:42 Total Protein 8.1 g/dL (6.6-8.7) 12/07/23 15:42 Albumin 4.2 g/dL (3.5-5.2) 12/07/23 15:42 Globulin 3.9 g/dL (1.3-4.6) 12/07/23 15:42 Urine Color Yellow (Yellow) 12/07/23 15:45 Urine Appearance Clear (CLEAR) 12/07/23 15:45 Urine pH 5.5 (5-7) 12/07/23 15:45 Ur Specific [place] 1.004 (1.005-1.030) L 12/07/23 15:45 Urine Protein Negative (Negative) 12/07/23 15:45 Urine Glucose (UA) Negative (Normal) 12/07/23 15:45 Urine Ketones Negative (Negative) 12/07/23 15:45 Urine Blood Negative (Negative) 12/07/23 15:45 Urine Nitrate Negative (Negative) 12/07/23 15:45 Urine Bilirubin Negative (Negative) 12/07/23 15:45 Urine Urobilinogen 0.2 mg/dL (Negative) 12/07/23 15:45 Ur Leukocyte Esterase Negative (Negative) 12/07/23 15:45 Urine RBC 0-2 /hpf (0-2) 12/07/23 15:45 Urine WBC 0-5 /hpf (0-5) 12/07/23 15:45 Ur Squamous Epith Cells 0-5 /hpf (0-5) 12/07/23 15:45 Amorphous Sediment Not Reportable 12/07/23 15:45 Urine Bacteria None seen /hpf (NONE) 12/07/23 15:45 Hyaline Casts 0-4 /lpf H 12/07/23 15:45 All radiology interpretation(s) finalized by discharge Discharge Plan Discharge Patient Disposition: Home Clinical Impression: Suprapatellar bursitis of right knee Condition: Stable Prescriptions: New hydrocodone-acetaminophen 5-325 mg tablet 1 tab PO Q6H PRN (Reason: pain) Qty: 20 0RF prednisone 20 mg tablet 20 mg PO TID Qty: 15 0RF Rx Instructions: 1 p.o. 3 times daily x3 days, 1 p.o. twice daily x2 days, 1 p.o. daily x2 days No Action metformin 500 mg tablet 500 mg PO BID (DME) ASO Brace See Rx Instructions .Route .MEDSUPPLY Qty: 1 0RF Rx Instructions: As directed cyclobenzaprine 10 mg tablet 10 mg PO TID gabapentin 300 mg capsule 300 mg PO TID triamcinolone acetonide [Triderm] 0.1 % cream 1 applic topical DAILY lisinopril 20 mg tablet 20 mg PO ONCE budesonide-formoterol [Symbicort] 160-4.5 mcg/actuation HFA aerosol inhaler 1 inh inhalation DAILY amlodipine [Norvasc] 10 mg tablet 10 mg PO DAILY Qty: 30 0RF pantoprazole 40 mg tablet,delayed release (DR/EC) 40 mg PO BID Qty: 120 0RF celecoxib 200 mg capsule 200 mg PO DAILY furosemide 40 mg tablet 40 mg PO DAILY potassium chloride 20 mEq tablet,ER particles/crystals 20 meq PO DAILY baclofen 10 mg tablet 10 mg PO TID fluticasone propionate 50 mcg/actuation spray,suspension 2 spray INTRANASAL DAILY tiotropium bromide [Spiriva with HandiHaler] 18 mcg capsule, w/inhalation device 1 cap INHALATION DAILY Discharge Orders: Discharge ED (Routine); Ordered 12/07/23 Ordered By: Raul Shane Referrals: Patricio Jj MD [Primary Care Provider] - Discharge Diet: Usual diet Discharge Activity: Resume usual activity Patient Instructions: Opioid Safety, Pain Management Activity Restrictions/Additional Instructions: Thank you for choosing [facility] for your healthcare needs today. It is very important that you follow up as instructed or that you return to the Emergency Department should you have concerns or if your condition changes or worsens in any way. You are seen in the emergency room with complaints of pain and swelling in the left knee. Does not appear to be infected on exam and your white count was normal x-ray did not show any fractures. Will discharge you home with steroid taper and pain medications case management makers for a follow-up with orthopedics Coding Level of Care Code ED Printing Machine Operator for Andres Chaudhry
[2023-12-07 17:04] VITALS: BP 116/81; PULSE 100; O2SAT 97
== END 2023-12-07 17:05 | disposition home or self-care (01) ==
PROVIDERS: Emergency Provider Family Medicine; PCP Family Medicine
DX: M70.51 Other bursitis of knee, right knee (principal)
CPT/HCPCS: 36415; 73562; 80053; 81001; 85025; 85651; 86140; 87040; 99284

== ENCOUNTER 2023-12-21 08:00 | Outpatient (CLI) | payer MEDICAID, SELFPAY ==
--- NOTE | 2023-12-21 08:02 | CT_ITS ---
WS: [id number] LDCT LUNG CANCER SCREENING TECHNIQUE: Noncontrast CT of the chest with coronal and sagittal reformatted images. CLINICAL INFORMATION: NICOTINE DEPENDENCE,CIGARETTES COMPARISON: 2022 DLP: 129.60 mGy.cm DIvol: Mean CTDIvol: 3.20 (mGy) All CT scans at [facility] use at least one of these dose optimization techniques: automat ed exposure control; mA and/or kV adjustment per patient size (includes targeted exams where dose is matched to clinical indication); or iterative reconstruction. FINDINGS: Previous described subpleural nodule in the LEFT upper lobe anteriorly measuring 6.5 mm is unchanged. Otherwise no new suspicious pulmonary parenchymal abnormalities. Stable tiny noncalcified nodule RIGHT upper lobe measuring 3 mm. A few calcified granulomas. Normal caliber thoracic aorta. Mild coronary calcification. No mediastinal or hilar lymphadenopathy. No axillary lymphadenopathy. Small esophageal hiatal hernia. Adrenal glands are normal. Stable hypert rophic changes thoracic spine. CT/CT lung screening [id number] IMPRESSION: LUNG-RADS: 2-Benign Appearance or Behavior FOLLOW UP: 12 Month: Continue annual screening with LDCT
== END 2023-12-21 08:01 | disposition home or self-care (01) ==
PROVIDERS: PCP Family Medicine; Visit Provider Family Medicine
DX: Z12.2 Encounter for screening for malignant neoplasm of respiratory organs (principal); R91.8 Other nonspecific abnormal finding of lung field; M46.94 Unspecified inflammatory spondylopathy, thoracic region; F17.210 Nicotine dependence, cigarettes, uncomplicated
CPT/HCPCS: 71271

== ENCOUNTER 2024-02-12 15:40 | Outpatient (CLI) | payer MEDICAID, SELFPAY ==
--- NOTE | 2024-02-12 15:42 | USR_ITS ---
PROCEDURE INFORMATION: Exam: US Left Limited Joint or Other Non-Vascular Extremity Structure Exam date and time: 02/12/2024 3:48 PM Age: 53 years old Clinical indication: Pain; Shoulder; Left; Additional info: Shoulder mass TECHNIQUE: Imaging protocol: US left limited joint or other nonvascular extremity structure. Real-time ultrasound with image documentation. Exam focused on the area of clinical interest. COMPARISON: MR shoulder LT wo con* [id number] 06/19/2022 9:52 AM FINDINGS: Soft tissues: Unremarkable. No loculated collections. Other findings: 2.1 x 2.3 x 0.8 cm complex cystic structure in the left shoulder with multiple contiguous cystic structures which could be related to MRI findings of contiguous fluid in the subcoracoid bursa, glenohumeral joint and subacromial subdeltoid bursa with full-thickness rotator cuff tear. MRI with and without intravenous gadolinium may be helpful rule out synovial sarcoma or other lesion clinically indicated. US/US soft tissue/extremity [id number] IMPRESSION: 1. 2.1 x 2.3 x 0.8 cm complex cystic structure in the left shoulder with multiple contiguous cystic structures which could be related to MRI findings of contiguous fluid in the subcoracoid bursa, glenohumeral joint and subacromial subdeltoid bursa with full-thickness rotator cuff tear. 2. MRI with and without intravenous gadolinium may be helpful rule out synovial sarcoma or other lesion clinically indicated.
== END 2024-02-12 15:41 | disposition home or self-care (01) ==
LOC: RAD 15:40
PROVIDERS: PCP Family Medicine; Visit Provider Family Medicine
DX: R22.32 Localized swelling, mass and lump, left upper limb (principal)
CPT/HCPCS: 76882

== ENCOUNTER 2024-04-16 11:37 | Emergency (ER) | payer OTHER, MEDICAID, SELFPAY ==
[2024-04-16 11:42] VITALS: BP 101/63; PULSE 98; RESP 20; TEMP 36.6; O2SAT 95; BMI 33.6
[2024-04-16 11:51] VITALS: BP 105/74; PULSE 104; O2SAT 92
--- NOTE | 2024-04-16 12:02 | XRR_ITS ---
PROCEDURE INFORMATION: Exam: XR Right Ankle Exam date and time: 04/16/2024 12:13 PM Age: 53 years old Clinical indication: Bilateral ankle pain/swelling/weakness after fall TECHNIQUE: Imaging protocol: Radiologic exam of the right ankle. Views: 3 or more views. COMPARISON: CR XR knee RT 3V* [id number] 12/07/2023 1:17 PM FINDINGS: Bones/joints: There is a noninflamed plantar enthesophyte. There is a noninflamed Achilles enthesophyte. Soft tissues: There is soft tissue swelling. XR/XR ankle RT min 3V* [id number] IMPRESSION: No acute fracture or dislocation.
--- NOTE | 2024-04-16 12:02 | XRR_ITS ---
PROCEDURE INFORMATION: Exam: XR Right Knee Exam date and time: 04/16/2024 12:13 PM Age: 53 years old Clinical indication: Right; RT knee pain/swelling/weakness after fall TECHNIQUE: Imaging protocol: Radiologic exam of the right knee. Views: 3 views. COMPARISON: CR XR knee RT 3V* [id number] 12/07/2023 1:17 PM FINDINGS: Bones/joints: There are mild degenerative changes of the knee joint, predominantly involving the medial joint compartment. Mild knee joint effusion. Heterotopic ossifications surrounding the knee joint. Soft tissues: There is soft tissue swelling. XR/XR knee RT 3V* [id number] IMPRESSION: No acute fracture or dislocation.
[2024-04-16 12:11] LABS: Basophils # 0.1 10^3/uL (0.0-0.1); Basophils % 0.5 %; Eosinophils # 0.6 10^3/uL (0.0-0.8); Eosinophils % 4.1 %; Hematocrit 42.9 % (37-53); Lymphocytes # 4.2 10^3/uL (0.8-4.8); Lymphocytes % 31.5 %; Mean Corpuscular HGB Conc 34.7 g/dL (30-55); Mean Corpuscular Hemoglobin 33.3 pg (27-33); Mean Corpuscular Volume 95.8 fl (82-101); Mean Platelet Volume 8.7 fL (7.4-10.4); Monocytes # 1.2 10^3/uL (0.2-0.9); Monocytes % 8.9 %; Neutrophils # 7.27 10^3/uL (1.8-7.7); Neutrophils % 54.4 %; Nucleated Red Blood Cells % 0 %; Platelet Count 297 10^3/cmm (157-399); Red Blood Count 4.48 10^6/uL (3.85-5.65); White Blood Count 13.37 10^3/uL (3.29-11.43)
--- NOTE | 2024-04-16 12:16 | W.ED.EXTPRO ---
HPI - Extremity Problem General: Chief complaint: Extremity Injury, Lower Stated complaint: fell 2 days difficulty walking swollen knee Time Seen by Provider: 04/16/24 11:53 Source: patient History of Present Illness: Patient is a 53-year-old gentleman who presents to the ER for evaluation of right leg pain. He states that few days ago he was laying thin set up for a tile and whenever he got up he lost his balance and started to fall. He felt a pop in his right leg and has had some swelling to the right knee and pain to the right leg. He is unsure if it was the right knee or right ankle that is hurting but has pain with ambulation which is caused him to fall a couple of times since then. Patient also has had some urinary incontinence which family inquired about a possible UTI. He does take Lasix however they state he frequently is unable to get to the bathroom in time before he has urinary incontinence. MD Complaint: extremity pain and extremity swelling Pain Consistency: constant Associated symptoms: Deny chest pain or fever(s) Related Data Home Medications ?Medication ?Instructions ?Recorded ?Confirmed metformin 500 mg tablet 500 mg PO BID 06/25/22 04/16/24 budesonide-formoterol HFA 160 1 inh inhalation DAILY 03/13/23 04/16/24 mcg-4.5 mcg/actuation aerosol inhaler (Symbicort) cyclobenzaprine 10 mg tablet 10 mg PO TID 03/13/23 04/16/24 gabapentin 300 mg capsule 300 mg PO TID 03/13/23 04/16/24 lisinopril 20 mg tablet 20 mg PO ONCE 03/13/23 04/16/24 baclofen 10 mg tablet 10 mg PO TID 12/07/23 04/16/24 celecoxib 200 mg capsule 200 mg PO DAILY 12/07/23 04/16/24 fluticasone propionate 50 2 spray intranasal DAILY 12/07/23 04/16/24 mcg/actuation nasal spray,suspension furosemide 40 mg tablet 40 mg PO DAILY 12/07/23 04/16/24 potassium chloride 20 mEq 20 meq PO DAILY 12/07/23 04/16/24 tablet,extended release(part/cryst) tiotropium bromide 18 mcg capsule 1 cap inhalation DAILY 12/07/23 04/16/24 with inhalation device (Spiriva with HandiHaler) cetirizine 10 mg tablet 10 mg PO DAILY 04/16/24 04/16/24 hydrocodone 7.5 mg-acetaminophen 1 tab PO Q6H 04/16/24 04/16/24 325 mg tablet hydroxychloroquine 200 mg tablet 400 mg PO DAILY 04/16/24 04/16/24 trazodone 50 mg tablet 50 mg PO DAILY 04/16/24 04/16/24 venlafaxine 150 mg 150 mg PO DAILY 04/16/24 04/16/24 capsule,extended release 24 hr venlafaxine 75 mg capsule,extended 75 mg PO DAILY 04/16/24 04/16/24 release 24 hr Previous Rx's ?Medication ?Instructions ?Recorded amlodipine 10 mg tablet (Norvasc) 10 mg PO DAILY #30 tabs 06/04/22 Allergies Allergy/AdvReac Type Severity Reaction Status Date / Time aspirin Allergy ALGY-Hives Verified 04/16/24 11:51 Review of Systems Const: Denies: fever(s) or chills Card: Denies: chest pain or palpitations Resp: Denies: dyspnea or productive cough GI: Denies: abdominal pain, nausea or vomiting : Reports: urinary frequency, urinary urgency and urinary incontinence PFSH ED PFSH: Medical History Hypertension Family History Other Cancer Diabetes Social History Smoking and tobacco/nicotine status: never used tobacco/nicotine Alcohol intake: current Alcohol intake frequency: 3 or more drinks per day Alcohol type: beer Physical Exam Narrative: EXAM NARRATIVE: Awake and alert 53-year-old male in no acute distress Const: COMMON NORMALS: no acute distress, average body habitus, alert and well nourished GENERAL APPEARANCE: cooperative ORIENTATION/CONSCIOUSNESS: Yes awake HENMT: COMMON NORMALS: normocephalic and atraumatic HEAD & SCALP: normocephalic and atraumatic Eye: COMMON NORMALS: conjunctivae normal CONJUNCTIVA: Yes conjunctivae normal Neck/C-Spine: GENERAL: Yes normal visual inspection Resp: COMMON NORMALS: normal respiratory effort, No retractions and No use of accessory muscles Cardio: COMMON NORMALS: regular rhythm and Peripheral pulses 2+ throughout RHYTHM: regular rhythm PERIPHERAL PULSES: Peripheral pulses 2+ throughout GI: COMMON NORMALS: Soft to palpation and non-tender PALPATION: Yes Soft to palpation : OTHER: Urine soaked underwear from urinary incontinence Extremity: COMMON NORMALS: full ROM and no pedal edema NARRATIVE EXTREMITY EXAM: Moderate amount of swelling noted to the right knee with effusion. No erythema or warmth. Patient has 5 out of 5 strength with flexion at the hip. Neuro: COMMON NORMALS: moves all extremities and no focal motor deficits SENSORIUM/ORIENTATION: Yes alert Skin: COMMON NORMALS: no rashes or lesions noted GENERAL SKIN EXAM: no rashes or lesions noted Course Vital Signs: Vital signs: Vital Signs Temperature 97.8 F 04/16/24 11:42 Pulse Rate 100 04/16/24 12:51 Respiratory Rate 20 H 04/16/24 12:51 Blood Pressure 105/74 04/16/24 11:51 Pulse Oximetry 95 04/16/24 12:51 Oxygen Delivery Me thod Room Air 04/16/24 11:42 MDM - Extremity (Nontraumatic) Medical Decision Making Patient is a 53-year-old male who presents to the ER with primary complaint of right leg pain. He has some effusion noted to the right knee and pain with range of motion of the right knee. He had a fall few days back where he states he lost his balance and fell. He is neurovascular intact in all 4 extremities. Equal pulses x 4. 5 out of 5 strength all 4 extremities. He does appear to have some degree of alcohol dependency and smells of EtOH this morning. Given his EtOH history and frequent falls a head CT was obtained in addition to other plain radiographs. Head CT is negative for acute findings. X-ray of the bilateral ankles is negative for acute findings. He does have an effusion noted to the right knee without any acute fracture. Basic labs were obtained which shows unremarkable CBC other than white blood cell count of 13,000. Chemistry panel is remarkable for some mild hyponatremia with a sodium of 127. I suspect he has some degree of beer [place] а[place]на and he states that he does drink beer daily. His blood alcohol level is 187. While patient was here in the ER he apparently had a coughing episode which he turned bright red in the face and then had a brief episode of decreased responsiveness per the nurse. EKG was obtained which shows sinus rhythm. No ischemic ST elevation or depressions. No dysrhythmias or ectopy. No bundle-branch blocks. Troponin was obtained and is unremarkable. I spoke with the patient regarding this and he states he has had these events intermittently for over a year and has spoke with his PCP regarding it. He states they have done some test such as echocardiogram and other evaluations which have been unremarkable. I did recommend and discussed admission to the hospital with the patient. Dr. Rojo was agreeable to admission for observation however patient adamantly declined admission and states he want to go home. He had no desire to stay in the ER and we did discuss risk and benefits of this decision at length. The patient continues to desire discharge. I will go ahead and place him in a knee immobilizer for comfort. I will write him a prescription for a wheelchair as he has crutches but is unsteady and does not want to use crutches which I think is very reasonable. He is certainly a fall risk. I recommend he follow-up with orthopedic surgery. He was given a dose of morphine for pain here. Patient was provided return precautions. Lab Data I reviewed the patient's lab results. 04/16/24 12:04 04/16/24 12:04 Radiology Impressions Knee X-Ray 04/16/24 12:02 IMPRESSION: No acute fracture or dislocation. Ankle X-Ray 04/16/24 12:17 IMPRESSION: No acute fracture or dislocation. Head CT 04/16/24 12:18 IMPRESSION: No acute intracranial posttraumatic changes. Laboratory Results WBC 13.37 10^3/uL (3.29-11.43) H 04/16/24 12:04 RBC 4.48 10^6/uL (3.85-5.65) 04/16/24 12:04 Hgb 14.90 g/dL (11.27-16.99) 04/16/24 12:04 Hct 42.9 % (37-53) 04/16/24 12:04 MCV 95.8 fl (82-101) 04/16/24 12:04 MCH 33.3 pg (27-33) H 04/16/24 12:04 MCHC 34.7 g/dL (30-55) 04/16/24 12:04 RDW 11.0 % (12.1-15.1) L 04/16/24 12:04 Plt Count 297 10^3/cmm (157-399) 04/16/24 12:04 MPV 8.7 fL (7.4-10.4) 04/16/24 12:04 Neut % (Auto) 54.4 % 04/16/24 12:04 Lymph % (Auto) 31.5 % 04/16/24 12:04 Alfalfa % (Auto) 8.9 % 04/16/24 12:04 Eos % (Auto) 4.1 % 04/16/24 12:04 Baso % (Auto) 0.5 % 04/16/24 12:04 Neut # (Auto) 7.27 10^3/uL (1.8-7.7) 04/16/24 12:04 Lymph # (Auto) 4.2 10^3/uL (0.8-4.8) 04/16/24 12:04 Alfalfa # (Auto) 1.2 10^3/uL (0.2-0.9) H 04/16/24 12:04 Eos # (Auto) 0.6 10^3/uL (0.0-0.8) 04/16/24 12:04 Baso # (Auto) 0.1 10^3/uL (0.0-0.1) 04/16/24 12:04 Nucleated RBC % (auto) 0 % 04/16/24 12:04 Nucleated RBCs # 0.0 /100WBC 04/16/24 12:04 Sodium 127 mmol/L (136-145) L 04/16/24 12:04 Potassium 3.8 mmol/L (3.5-5.1) 04/16/24 12:04 Chloride 91 mmol/L (98-107) L 04/16/24 12:04 Carbon Dioxide 21 mmol/L (22-29) L 04/16/24 12:04 Anion Gap 18.8 (5-19) 04/16/24 12:04 BUN 7 mg/dL (6-20) 04/16/24 12:04 Creatinine 0.6 mg/dL (0.7-1.2) L 04/16/24 12:04 GFR Calculation 140.4 mL/min (90-130) H 04/16/24 12:04 Glucose 101 mg/dL (65-115) 04/16/24 12:04 Calculated Osmolality 262 mOsm/kg (285-295) L 04/16/24 12:04 Calcium 8.9 mg/dL (8.5-10.5) 04/16/24 12:04 Magnesium 2.0 mg/dL (1.7-2.3) 04/16/24 12:04 Total Bilirubin 0.2 mg/dL (0.15-1.2) 04/16/24 12:04 AST 21 U/L (0-40) 04/16/24 12:04 ALT 18 U/L (0-41) 04/16/24 12:04 Alkaline Phosphatase 85 U/L (40-130) 04/16/24 12:04 Troponin T Baseline 14 ng/L (0-15) 04/16/24 12:04 Total Protein 7.9 g/dL (6.6-8.7) 04/16/24 12:04 Albumin 4.3 g/dL (3.5-5.2) 04/16/24 12:04 Globulin 3.6 g/dL (1.3-4.6) 04/16/24 12:04 Urine Color Yellow (Yellow) 04/16/24 12:49 Urine Appearance Clear (CLEAR) 04/16/24 12:49 Urine pH 5.0 (5-7) 04/16/24 12:49 Ur Specific [place] 1.006 (1.005-1.030) 04/16/24 12:49 Urine Protein Negative (Negative) 04/16/24 12:49 Urine Glucose (UA) Negative (Normal) 04/16/24 12:49 Urine Ketones Negative (Negative) 04/16/24 12:49 Urine Blood Negative (Negative) 04/16/24 12:49 Urine Nitrate Negative (Negative) 04/16/24 12:49 Urine Bilirubin Negative (Negative) 04/16/24 12:49 Urine Urobilinogen 0.2 mg/dL (Negative) 04/16/24 12:49 Ur Leukocyte Esterase Negative (Negative) 04/16/24 12:49 Urine RBC 0-4 /hpf (0-2) H 04/16/24 12:49 Urine WBC 0-4 /hpf (0-5) H 04/16/24 12:49 Ur Squamous Epith Cells 0-4 /hpf (0-5) H 04/16/24 12:49 Amorphous Sediment Not Reportable 04/16/24 12:49 Urine Bacteria Trace /hpf (NONE) 04/16/24 12:49 Urine Opiates Screen Positive ng/mL (Negative) H 04/16/24 12:49 Ur Barbiturates Screen Negative ng/mL (Negative) 04/16/24 12:49 Ur Phencyclidine Scrn Negative ng/mL (Negative) 04/16/24 12:49 Ur Amphetamines Screen Negative ng/mL (Negative) 04/16/24 12:49 U Benzodiazepines Scrn Negative ng/mL (Negative) 04/16/24 12:49 Urine Cocaine Screen Negative ng/mL (Negative) 04/16/24 12:49 U Marijuana (THC) Screen Positive ng/mL (Negative) H 04/16/24 12:49 Ethyl Alcohol 187 mg/dL (0-10) H 04/16/24 12:04 All radiology interpretation(s) finalized by discharge EKG Data EKG 1: Interpretation: Sinus rhythm. Rate of 93 bpm. Normal axis. No ischemic ST elevation or depressions. QTc of 416 ms. Discharge Plan Discharge Patient Disposition: Home Clinical Impression: Strain of knee, Syncope, Hyponatremia Condition: Stable Prescriptions: No Action metformin 500 mg tablet 500 mg PO BID cyclobenzaprine 10 mg tablet 10 mg PO TID gabapentin 300 mg capsule 300 mg PO TID lisinopril 20 mg tablet 20 mg PO ONCE budesonide-formoterol [Symbicort] 160-4.5 mcg/actuation HFA aerosol inhaler 1 inh inhalation DAILY amlodipine [Norvasc] 10 mg tablet 10 mg PO DAILY Qty: 30 0RF celecoxib 200 mg capsule 200 mg PO DAILY furosemide 40 mg tablet 40 mg PO DAILY potassium chloride 20 mEq tablet,ER particles/crystals 20 meq PO DAILY baclofen 10 mg tablet 10 mg PO TID fluticasone propionate 50 mcg/actuation spray,suspension 2 spray INTRANASAL DAILY tiotropium bromide [Spiriva with HandiHaler] 18 mcg capsule, w/inhalation device 1 cap INHALATION DAILY venlafaxine 75 mg capsule,extended release 24hr 75 mg PO DAILY trazodone 50 mg tablet 50 mg PO DAILY cetirizine 10 mg tablet 10 mg PO DAILY venlafaxine 150 mg capsule,extended release 24hr 150 mg PO DAILY hydrocodone-acetaminophen 7.5-325 mg tablet 1 tab PO Q6H hydroxychloroquine 200 mg tablet 400 mg PO DAILY Discharge Orders: Discharge ED (Routine); Ordered 04/16/24 Ordered By: Spencer Silva Referrals: Patricio Jj MD [Primary Care Provider] - Nemesio Wang DO [Physician] - 4-7 days Discharge Activity: Wheelchair as instructed Patient Instructions: Knee Pain (ED), Knee Immobilizer (ED), Opioid Safety, Pain Management Activity Restrictions/Additional Instructions: Use wheelchair as instructed to limit risk of falls. Follow-up with orthopedic surgery. Contact their office on Thursday for a follow-up appointment. Return to the ER for any concerns. Print Language: Georgian Coding Level of Care Code ED [employer]orer [employer] for Andres Chaudhry
--- NOTE | 2024-04-16 12:17 | XRR_ITS ---
PROCEDURE INFORMATION: Exam: XR Left Ankle Exam date and time: 04/16/2024 12:19 PM Age: 53 years old Clinical indication: Bilateral ankle pain/swelling/weakness after fall TECHNIQUE: Imaging protocol: Radiologic exam of the left ankle. Views: 3 or more views. COMPARISON: CR XR ankle LT min 3V* [id number] 06/30/2022 2:13 PM FINDINGS: Bones/joints: Severe narrowing of the ankle joint with marginal osteophytes consistent with advanced degenerative disease. Moderate knee joint effusion. Joint bodies at the posterior aspect of the ankle joint. Type 2 os navicularis. There is a noninflamed plantar enthesophyte. Soft tissues: There is soft tissue swelling. XR/XR ankle LT min 3V* [id number] IMPRESSION: No acute fracture or dislocation.
--- NOTE | 2024-04-16 12:18 | CTR_ITS ---
PROCEDURE INFORMATION: Exam: CT Head Without Contrast Exam date and time: 04/16/2024 12:26 PM Age: 53 years old Clinical indication: Injury or trauma; Fall; Blunt trauma (contusions or hematomas); Additional info: Fall, head injury TECHNIQUE: Imaging protocol: Computed tomography of the head without contrast. Radiation optimization: All CT scans at this facility use at least one of these dose optimization techniques: automated exposure control; mA and/or kV adjustment per patient size (includes targeted exams where dose is matched to clinical indication); or iterative reconstruction. COMPARISON: No relevant prior studies available. RADIATION DOSE METRICS: Total DLP (mGy-cm): 1130.34 FINDINGS: Brain: Normal. No hemorrhage. Unremarkable white matter. No mass effect. Cerebral ventricles: No ventriculomegaly. Paranasal sinuses: Mild mucosal disease of bilateral maxillary sinuses, bilateral sphenoid sinuses, bilateral ethmoid air cells and left frontal sinus. Mastoid air cells: Visualized mastoid air cells are well aerated. Bones: Unremarkable. No acute fracture. Soft tissues: There is a left forehead subgaleal hematoma. CT/CT head wo con* [id number] IMPRESSION: No acute intracranial posttraumatic changes.
[2024-04-16 12:28] LABS: Alanine Aminotransferase 18 U/L (0-41); Albumin Level 4.3 g/dL (3.5-5.2); Alcohol Level 187 mg/dL (0-10); Alkaline Phosphatase 85 U/L (40-130); Anion Gap 18.8 (5-19); Aspartate Amino Transferase 21 U/L (0-40); Blood Urea Nitrogen 7 mg/dL (6-20); Calcium 8.9 mg/dL (8.5-10.5); Carbon Dioxide 21 mmol/L (22-29); Chloride 91 mmol/L (98-107); Creatinine Clr Calc Pharmacy 187.5405; Globulin 3.6 g/dL (1.3-4.6); Glomerular Filtration Rate 140.4 mL/min (90-130); Glucose 101 mg/dL (65-115); Osmolality Calculated 262 mOsm/kg (285-295); Potassium 3.8 mmol/L (3.5-5.1); Sodium 127 mmol/L (136-145); Total Bilirubin 0.2 mg/dL (0.15-1.2); Total Protein 7.9 g/dL (6.6-8.7)
--- NOTE | 2024-04-16 12:43 | ECG_ITS ---
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 Measurements Intervals [place] Rate: 93 P: -13 [place]: 154 QRS: 17 QRSD: 114 T: 27 QT: 365 QTc: 456 Interpretive Statements SINUS RHYTHM MODERATE INTRAVENTRICULAR CONDUCTION DELAY [110+ ms QRS DURATION] Compared to ECG 06/04/2022 15:36:06 Intraventricular conduction delay now present Electronically Signed On 04-17-2024 12:36:37 RUBY DEVELOPER by Brigitte Brown M.D. [email or web address]
[2024-04-16 12:51] VITALS: PULSE 100; RESP 20; O2SAT 95
[2024-04-16 12:56] LABS: Bilirubin Urine Negative (Negative); Blood Urine Negative (Negative); Glucose Urine UA Negative (Normal); Ketones Urine Negative (Negative); Leukocyte Esterase Urine Negative (Negative); Nitrate Urine Negative (Negative); Protein Urine Negative (Negative); Specific Gravity, Urine 1.006 (1.005-1.030); Urine Appearance Clear (CLEAR); Urine Color Yellow (Yellow); Urobilinogen Urine 0.2 mg/dL (Negative)
[2024-04-16 13:00] LABS: Troponin(5th) Baseline 14 ng/L (0-15)
[2024-04-16 13:04] LABS: Amphetamines Screen Urine Negative (Negative); Barbiturates Screen Urine Negative (Negative); Benzodiazepines Screen Urine Negative (Negative); Cocaine Screen Urine Negative (Negative); Opiate Screen Urine Positive (Negative); PCP Screen Urine Negative (Negative); THC Screen Urine Positive (Negative)
[2024-04-16 13:10] LABS: Add Urine Microscopic? YES; Bacteria Urine TRACE /hpf; RBC Urine 0-4 /hpf (0-2); Squamous Epithelial Cell Urine 0-4 /hpf (0-5); WBC Urine 0-4 /hpf (0-5)
[2024-04-16] MEDS: sodium chloride 0.9% 1,000 ML 500 ML IV (13:29)
[2024-04-16 13:57] VITALS: RESP 16; O2SAT 94
[2024-04-16] MEDS: morphine 4 mg/mL SDV 1 mL IVP (13:57)
[2024-04-16 14:31] VITALS: PULSE 95; O2SAT 97
== END 2024-04-16 14:33 | disposition home or self-care (01) ==
PROVIDERS: Emergency Provider Student in an Organized Health Care Education/Training Program; PCP Family Medicine
DX: S83.91XA Sprain of unspecified site of right knee, initial encounter (principal); R55 Syncope and collapse; E87.1 Hypo-osmolality and hyponatremia; Z79.84 Long term (current) use of oral hypoglycemic drugs; I10 Essential (primary) hypertension; X58.XXXA Exposure to other specified factors, initial encounter
CPT/HCPCS: 36415; 70450; 73562; 73610; 80053; 80306; 80307; 81001; 83735; 84484; 85025; 93005; 96361; 96374; 99285; J2270; J7030

== ENCOUNTER 2024-04-26 10:57 | Outpatient (CLI) | payer OTHER, MEDICAID, SELFPAY ==
--- NOTE | 2024-04-26 10:59 | MR_ITS ---
WS: [id number] MRI CERVICAL SPINE with and without contrast HISTORY: NECK PAIN COMPARISON: None available. Technique: Multiplanar, multisequence noncontrast imaging of the cervical spine. Postcontrast MRI 20 mL of MultiHance. Severe degenerative spondylitic changes throughout the cervical spine. Significant loss of disc space height from C3-4 through C7-T1. Mild anterior wedging with hypertrophic osteophytes throughout the cervical spine. C7 anterolisthesis by 4 mm. 2 to 3 mm retrolisthesis of C5 4, C5 and C6. Reactive marrow edema most significant in the T1 vertebral body. There is disc and osteophyte encroachment upon the cervical cord. Increased T2 signal in the cervical cord at C7-T1 extends over a length of 15 mm consistent with myelomalacia. No cord atrophy. Craniocervical junction, C1 and C2 relationship, odontoid process and soft tissues are normal. C2-C3: Mild disc bulging. Moderate RIGHT and mild LEFT foraminal stenosis. Bilateral facet joint arthropathy, greatest on the RIGHT. Fluid along the RIGHT facet joint. C3-C4: Osteophytic ridging with disc bulging and facet arthritis. Mild central with moderate to severe bilateral foraminal stenosis due to disc osteophyte disease. C4-C5: Diffuse osteophytic ridging with a central disc protrusion. Osteophytic ridging and bilateral facet arthritis. Moderate to severe central with severe bilateral foraminal stenosis and facet arthritis. C5-C6: Osteophytic ridging with a central disc protrusion. Severe bilateral facet arthritis. Deformity of the ventral cervical cord by disc and osteophyte disease. Severe central and bilateral foraminal stenosis. C6-C7: Diffuse annular disc bulging with a central disc protrusion and osteophytic ridging. Facet joint arthritis. Severe central and bilateral foraminal stenosis. C7-T1: Marked osteophytic ridging and disc bulging and facet arthritis. Severe central and bilateral foraminal stenosis. Paraspinal soft tissue are normal. MR/MR cervical spine wo/w [id number] IMPRESSION: 1. Severe degenerative spondylitic changes throughout the cervical spine. 2. Multilevel central and foraminal stenoses due to disc disease, disc protrus ions, osteophytic ridging and facet arthritis. 3. C6-7: Most severe stenosis at C6-7. Severe central and bilateral foraminal stenosis. 4. Myelomalacia in the cervical cord at C7-T1. 5. C7-1: Severe central and bilateral foraminal stenosis. 6. C5-6: Severe central and bilateral foraminal stenosis. 7. C4-5: Moderate to severe central with severe bilateral foraminal stenosis. 8. C3-4: Mild central with moderate to severe bilateral foraminal stenosis. 9. C2-3: Moderate RIGHT and mild LEFT foraminal stenosis. 10. C7 anterolisthesis by 4 mm.
[2024-04-26] MEDS: gadobenate dimeglumine 20 mL vial IV (11:49)
== END 2024-04-26 10:58 | disposition home or self-care (01) ==
PROVIDERS: PCP Family Medicine; Visit Provider Family Medicine
DX: M48.02 Spinal stenosis, cervical region (principal); M47.892 Other spondylosis, cervical region; M50.80 Other cervical disc disorders, unspecified cervical region; M50.20 Other cervical disc displacement, unspecified cervical region; M25.78 Osteophyte, vertebrae; G95.89 Other specified diseases of spinal cord; M43.12 Spondylolisthesis, cervical region; M48.52XA Collapsed vertebra, not elsewhere classified, cervical region, initial encounter for fracture; R93.7 Abnormal findings on diagnostic imaging of other parts of musculoskeletal system; M50.31 Other cervical disc degeneration, high cervical region; M50.221 Other cervical disc displacement at C4-C5 level; M50.323 Other cervical disc degeneration at C6-C7 level; M50.33 Other cervical disc degeneration, cervicothoracic region; M47.893 Other spondylosis, cervicothoracic region; M48.03 Spinal stenosis, cervicothoracic region
CPT/HCPCS: 72156

== ENCOUNTER → 2024-08-22 12:21 | Outpatient (BNVA) | payer OTHER, MEDICAID, SELFPAY | PROVIDERS: PCP Family Medicine; Visit Provider Family Medicine | DX: S62.633B Displaced fracture of distal phalanx of left middle finger, initial encounter for open fracture (principal); X58.XXXA Exposure to other specified factors, initial encounter; Z89.022 Acquired absence of left finger(s); M18.12 Unilateral primary osteoarthritis of first carpometacarpal joint, left hand; R22.32 Localized swelling, mass and lump, left upper limb | CPT/HCPCS: 73130 ==

== ENCOUNTER 2024-11-12 11:13 | Inpatient (IN) | payer OTHER, MEDICAID, SELFPAY ==
[2024-11-12] VITALS (14 sets, daily range): BP systolic 131–155; BP diastolic 75–110; PULSE 74–93; RESP 13–92; TEMP 36.4–37.1; O2SAT 92–97; BMI 35.7
--- OUTSIDE RECORDS SUMMARY | 2024-11-12 11:21 | XMS_ITS | Encounter Summary ---
Author Organization [employer] [facility] Address [address] [place] [address] Care Team Providers Care Retail Planner Name Role Phone Cristopher Menard MD Primary Care Provider Encounter Details Date Type Department Care Team (Late st Contact Info) Description 06/18/2004 Outpatient Historical HIS IN BED Tiff Eden MD [address] [place] [address] SYNCOPE AND COLLAPSE (Primary Dx) Social History Tobacco Use Types Packs/Day Years Used Date Smoking Tobacco: Never Assessed Sex and Gender Information Value Date Recorded Sex Assigned at Not on file Legal 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 Gender Identity Not on file Sexual Orientation Not on file documented as of this encounter Plan of Treatment Not on file documented as of this encounter Procedures Procedure Name Priority Date/Time Associated Diagnosis Comments PT AND APTT Routine 06/18/2004 11:07 AM CDT CBC WITHOUT DIFFERENTIAL Routine 06/18/2004 11:07 AM CDT TSH Routine 06/18/2004 11:07 AM CDT BASIC METABOLIC PANEL Routine 06/18/2004 11:07 AM CDT documented in this encounter Results * TSH (06/18/2004 11:07 AM CDT) TSH 2.12 0.49 - 4.67 uIU/ml INTERFACE SYSTEM 06/18/2004 11:0 7 AM CDT Tiff Eden MD CHEMISTRY ORDERABLES Final Re sult Performing Organization Address [facility] de Phone Number INTERFACE SYSTEM Refer to clinic/hospital department * PT AND APTT (06/18/2004 11:07 AM CDT) PROTIME 13.6 12.4 - 14.9 Secs INTERFACE SYSTEM Comment: As of 03 note change in normal range. INR 1.0 INTERFACE SYSTEM Comment: Expected Values for INR: DVT/PE Goal INR 2.5; range 2.0 - 3.0 Valve Replacement Tissue Goal INR 2.5; range 2.0 - 3.0 Mechanical Goal INR 3.0; range 2.5 - 3.5 POST-OH Goal INR 2.5; range 2.0 - 3.0 or Goal 3.0; range 2.5 - 3.5 Atrial Fibrillation Goal INR 2.5; range 2.0 - 3.0 Ischemic Stroke Goal INR 2.5; range 2.0 - 3.0 For additional information see Guidelines for Anticoagulation available from the pharmacy [facility] PTT 34.8 24.3 - 37.5 Secs INTERFACE SYSTEM Comment:Therapeutic Range: 06/18/2004 11:0 7 AM CDT Tiff Eden MD HEMATOLOGY ORDERABLES Final R esult Performing Organization Address [facility] de Phone Number INTERFACE SYSTEM Refer to clinic/hospital department * CBC WITHOUT DIFFERENTIAL (06/18/2004 11:07 AM CDT) WBC 8.6 4.5 - 11.0 K/ul INTERFACE SYSTEM RBC 4.63 4.60 - 6.20 Mil/ul INTERFACE SYSTEM HEMOGLOBIN 14.5 14.0 - 18.0 g/dL INTERFACE SYSTEM HEMATOCRIT 42.6 41.0 - 53.0 % INTERFACE SYSTEM MCV 92.0 84.0 - 103.0 Fl INTERFACE SYSTEM MCH 31.3 27.0 - 34.0 pg INTERFACE SYSTEM MCHC 34.0 30.0 - 35.0 g/dL INTERFACE SYSTEM RDW 12.2 11.0 - 14.5 percent(in active) INTERFACE SYSTEM PLATELETS 303 140 - 440 K/ul INTERFACE SYSTEM MPV 9.8 8.9 - 12.8 Fl INTERFACE SYSTEM NEUTROPHILS 56.5 42.2 - 75.2 percent(in active) INTERFACE SYSTEM LYMPHOCYTES 32.8 24.0 - 44.0 percent(in active) INTERFACE SYSTEM MONOCYTES 5.9 2.0 - 10.0 percent(in active) INTERFACE SYSTEM EOSINOPHILS 4.3 0.0 - 7.0 % INTERFACE SYSTEM BASOPHILS 0.5 0.0 - 1.0 percent(in active) INTERFACE SYSTEM NEUTROPHIL ABSOLUTE 4.9 2.0 - 8.0 K/uL INTERFACE SYSTEM LYMPHOCYTE ABSOLUTE 2.8 1.2 - 4.0 K/ul INTERFACE SYSTEM MONOCYTE ABSOLUTE 0.5 0.1 - 0.6 K/ul INTERFACE SYSTEM EOSINOPHIL ABSOLUTE 0.4 0.0 - 0.7 K/ul INTERFACE SYSTEM BASOPHILS ABSOLUTE 0.0 0.0 - 0.2 K/ul INTERFACE SYSTEM 06/18/2004 11:0 7 AM CDT us Tiff Eden MD HEMATOLOGY ORDERABLES Final R esult Performing Organization Address [facility] Co de Phone Number INTERFACE SYSTEM Refer to clinic/hospital department * BASIC METABOLIC PANEL (06/18/2004 11:07 AM CDT) GLUCOSE 103 70 - 110 mg/dL INTERFACE SYSTEM BUN 12 9 - 20 mg/dL INTERFACE SYSTEM CREATININE 1.0 0.7 - 1.5 mg/dL INTERFACE SYSTEM SODIUM 140 136 - 145 mEq/L INTERFACE SYSTEM POTASSIUM 3.8 3.5 - 5.0 mEq/L INTERFACE SYSTEM CHLORIDE 107 95 - 110 mEq/L INTERFACE SYSTEM CO2 25 22 - 32 mmol/l INTERFACE SYSTEM ANION GAP 12 9 - 20 mEq/L INTERFACE SYSTEM OSMOLALITY, CALCULATED 287 275 - 295 mOsm/Kg INTERFACE SYSTEM CALCIUM 8.9 8.4 - 10.5 mg/dL INTERFACE SYSTEM 06/18/2004 11:0 7 AM CDT Tiff Eden MD CHEMISTRY ORDERABLES Final Re sult Performing Organization Address [facility] Co de Phone Number INTERFACE SYSTEM Refer to clinic/hospital department documented in this encounter Visit Diagnoses Diagnosis Syncope and collapse- Primary documented in this encounter Care Teams Retail Planner Relationship Specialty Start Date End Date Cristopher Menard MD [address] [place] [id number] PCP - General 01/29/04 documented as of this encounter
--- OUTSIDE RECORDS SUMMARY | 2024-11-12 11:21 | XMS_ITS | Continuity of Care Document ---
Author Organization [facility] Ashley Almanzar, [facility] ([facility]) Address [address] [place] [address] Care Team Providers Care Individual Small Group Instructor Name Role Phone LISBETH JJ Primary Care Provider [phone] Assessment No assessment recorded. Plan of Treatment Reminders Order Date Submit Date Provider Last Modified By Organization Details Last Modified Time Details Appointments None recorded. Lab None recorded. Referral None recorded. Procedures None recorded. Surgeries None recorded. Imaging None recorded. Medication Orders venlafaxine ER 150 mg capsule,ext ended release 24 hr 2024 025 [facility] [place], [facility] [address], [place], [place], [id number], 5 16:31:47 Patient TargetsNo targets recorded. Patient InstructionsNo instructions recorded. Reason for Referral None Reported. Problems Name Problem SNOMED Code Status Onset Date Resolution Date Notes Provider Name and Address Organization Details Recorded Time Arthropa thy 003247091 Active 2022 ARTHRITI S; Impressi on: we will evaluate for RA.; Recorded 05/04/19 23 7:01AM by Lisbeth Jj MD, Office Visit; Promoted ; acuity set as *; [facility] 09:[facility]47 [facility] hyperten bita 58830192 Active 2022 [facility]uez [facility] 3 09:42:47 Type 2 diabetes mellitus 38296790 Active 2022 QIANA dominguez [facility] 3 09:42:47 Osteoart hritis 460378092 Active 2022 QIANA dominguez, [facility] 3 09:42:47 Cholelit hiasis without obstruct ion 23884701 Completed 202204/24/2024 Carolann dominguez [facility] 5 14:13:34 Chronic obstruct asa pulmonar y disease 79878115 Active 2022 QIANA dominguez [facility] 3 09:42:47 Chronic hepatiti s C 279738508 Active 2022 QIANA dominguez [facility] 3 09:42:47 Lumbar radiculo twila 749854621 Active 2022 QIANA dominguez [facility] 3 11:02:03 Psoriasi s annulari s 768507727 Active 2023 Carolann dominguez [facility] 5 14:15:45 Rotator cuff arthropa thy of right shoulder 42572450166 932213 Active 2023 Carolann dominguez [facility] 5 14:16:01 Intermit tent claudica tion 20957745 Completed 202304/24/2024 Carolann dominguez [facility], AbdirahmanL.CTruong 5 14:15:22 Spinal stenosis of lumbar region 96333681 Active 2023 Carolann dominguez [facility], AbdirahmanL.CTruong 5 14:16:09 Anxiety 99611191 Active 2023 Carolann dominguez [facility] 5 14:13:55 Cervical radiculo twila 54738327 Active 2023 Carolann Pacheco dominguez, [facility] 5 14:14:14 Mass of shoulder region 726999081 Active 2023 Carolann Bergman angelica, [facility] 5 14:15:38 Atrophy of muscle of left forearm 26930515756 9106 Active 2024 Carolann Bergman angelica, [facility] 5 14:14:05 Insomnia 203566392 [facility] 5 14:14:23 Depressi ve disorder 30829808 Active 2024 [facility] 5 16:36:11 Spinal stenosis in cervical region 58298249 Active 2024 [facility] 5 13:22:59 Bilatera l lower limb edema 243037138 Active 2024 Lisbeth Jj MD [address] [place] [address], [address], [facility] 5 16:27:38 Smoker 72271298 Active 2024 Lisbeth Jj MD [address] [place] [address], [address], [facility] 5 10:15:36 Acute exacerba tion of chronic obstruct asa pulmonar y disease 075282150 Active 2024 Lisbeth Jj MD [address] [place] [address], [address], [facility] 5 10:20:56 Abnormal gait 05528830 Active 2024 Lisbeth Jj MD [address] [place], [address], [facility], LTruongL.CTruong 5 17:19:17 Weakness of bilatera l lower limb Active 2024 Lisbeth Jj MD [address] [place], [address], [facility] 5 17:19:35 Problem Notes None recorded. Procedures Surgical History Date Name Laterality Status Provider Name and Address Organization Details Recorded Time 2023 esophagogastroduodenoscopy with endoscopic ultrasound of upper gastrointestinal tract completed QIANA RENTERIA [facility] LTruongLTanisha 4 08:21:35 decompression of bernard ateral median nerves completed Daniel [facility], LTruongLTanisha 5 09:06:28 procedure on shoulder completed Peter schwartz [facility], LTruongLTruongCT[facility]ong 5 09:06:54 Imaging Results None recorded. Procedure Notes None recorded. Medical Equipment None Reported. Allergies Allergen ID Allergen Name Allergen Category Reaction Reaction Severity Criticality Documentation Date Start Date Code Code System Note Provider Name and Address Organization Details Recorded Time 2521 aspirin medicatio n rash Not available Not available 06/19/2022 1191 RxNorm [facility] 3 12:15:29 Medications Name Sig Start Date Stop Date Status Note LastModified by Organization Details LastModified Time celecoxib 200 mg capsule TAKE ONE CAPSULE BY MOUTH ONCE DAILY active Not Available Not Available No t Available cyclobenz aprine 10 mg tablet TAKE ONE TABLET BY MOUTH THREE TIMES DAILY active Not Available Not Available No t Available amoxicill in 500 mg capsule TAKE ONE CAPSULE BY MOUTH THREE TIMES DAILY 10/13 completed Not Available Not Available Not Available furosemid e 40 mg tablet TAKE ONE TABLET BY MOUTH ONCE DAILY IN ADDITIOI N TO 80 MG TABLET active Not Available Not Available No t Available metformin 500 mg tablet TAKE ONE TABLET BY MOUTH TWICE DAILY WITH meals FOR 90 DAYS active Not Available Not Available No t Available venlafaxi ne ER 75 mg capsule,e xtended release 24 hr TAKE ONE CAPSULE BY MOUTH ONCE DAILY active Not Available Not Available No t Available nicotine 14 mg/24 hr daily transderm al patch Apply 1 patch every day by transder mal route for 14 days. 10/28 completed Not Available Not Available Not Available tizanidin e 2 mg tablet TAKE ONE TABLET BY MOUTH EVERY 8 HOURS NEEDED FOR SCIATICA 07/19 completed Not Available Not Available Not Available trazodone 50 mg tablet TAKE ONE TABLET BY MOUTH ONCE DAILY active Not Available Not Available No t Available cetirizin e 10 mg tablet TAKE ONE TABLET BY MOUTH ONCE DAILY active Not Available Not Available No t Available azithromy lizzette 250 mg tablet TAKE 2 TABLETS BY MOUTH ON DAY ONE THEN TAKE 1 TABLET DAILY FOR 4 DAYS 10/13 completed Not Available Not Available Not Available hydrocodo ne 5 mg-acetam inophen 325 mg tablet TAKE ONE TABLET EVERY 6 HOURS BY MOUTH NEEDED 01/31 completed Not Available Not Available Not Available sucralfat e 100 mg/mL oral suspensio n TAKE 2 TEASPOON SFUL (10 ML) BY MOUTH TWICE DAILY FOR FOUR WEEKS 01/26 completed Not Available Not Available Not Available meloxicam 15 mg tablet TAKE ONE TABLET BY MOUTH ONCE DAILY 06/11 completed Not Available Not Available Not Available lisinopri l 20 mg tablet TAKE ONE TABLET BY MOUTH ONCE DAILY active Not Available Not Available No t Available prednison e 20 mg tablet TAKE ONE TABLET BY MOUTH ONCE DAILY 10/13 completed Not Available Not Available Not Available gabapenti n 400 mg capsule Take 1 capsule 3 times a day by oral route. 2023 active Not Available Not Available Not Avai lable venlafaxi ne ER 150 mg capsule,e xtended release 24 hr Take 1 capsule every day by oral route. 2024 active Not Available Not Available Not Avai lable tramadol 50 mg tablet TAKE ONE TABLET BY MOUTH EVERY 6 HOURS 07/12 completed Not Available Not Available Not Available triamcino lone acetonide 0.1 % topical cream APPLY A THIN LAYER TO THE AFFECTED AREA(S) TOPICALL Y TWICE DAILY 05/20 completed Not Available Not Available Not Available baclofen 20 mg tablet TAKE ONE TABLET BY MOUTH THREE TIMES DAILY active Not Available Not Available No t Available potassium chloride ER 20 mEq tablet,ex tended release(p art/cryst ) TAKE ONE TABLET BY MOUTH ONCE DAILY active Not Available Not Available No t Available furosemid e 80 mg tablet TAKE ONE TABLET BY MOUTH ONCE DAILY active Not Available Not Available No t Available baclofen 10 mg tablet TAKE ONE TABLET BY MOUTH THREE TIMES DAILY 07/12 completed Not Available Not Available Not Available amlodipin e 10 mg tablet TAKE ONE TABLET BY MOUTH ONCE DAILY IN THE MORNING active Not Available Not Available No t Available hydrocodo ne 7.5 mg-acetam inophen 325 mg tablet TAKE ONE TABLET BY MOUTH EVERY 4 HOURS NEEDED active Not Available Not Available No t Available cephalexi n 500 mg capsule TAKE ONE CAPSULE BY MOUTH TWICE DAILY FOR 7 DAYS 08/13 completed Not Available Not Available Not Available pantopraz ole 40 mg tablet,de layed release TAKE ONE TABLET BY MOUTH TWICE DAILY 07/19 completed Not Available Not Available Not Available lisinopri l 10 mg tablet TAKE ONE TABLET BY MOUTH ONCE DAILY IN THE EVENING 09/15 completed Not Available Not Available Not Available nicotine 21 mg/24 hr daily transderm al patch apply ONE PATCH TO SKIN ONCE daily FOR 14 DAYS (THEN START 14MG PATCHES) active Not Available Not Available No t Available gabapenti n 300 mg capsule TAKE ONE CAPSULE BY MOUTH THREE TIMES DAILY active Not Available Not Available No t Available hydroxych loroquine 200 mg tablet TAKE TWO TABLETS BY MOUTH ONCE DAILY active Not Available Not Available No t Available methylpre dnisolone 4 mg tablets in a dose pack TAKE DIRECTED PER PACKAGIN G INSTRUCT IONS 06/26 completed Not Available Not Available Not Available ketorolac 60 mg/2 mL intramusc ular solution Inject 2 mL by intramus cular route. 08/29 completed Not Available Not Available Not Available fluticaso ne propionat e 50 mcg/actua tion nasal spray,chey pension USE 2 SPRAYS IN EACH NOSTRIL ONCE DAILY active Not Available Not Available No t Available doxycycli ne hyclate 100 mg tablet TAKE ONE TABLET BY MOUTH TWICE DAILY 07/19 completed Not Available Not Available Not Available nicotine 7 mg/24 hr daily transderm al patch Apply 1 patch every day by transder mal route for 14 days. 10/28 completed Not Available Not Available Not Available Spiriva with [employer] r 18 mcg and inhalatio n capsules INHALE ONE CAPSULE ONCE DAILY BY INHALATI ON ROUTE active Not Available Not Available No t Available meloxicam daily 10/14 completed 0; Recorded 05/03/19 23 8:17AM by Qiana Renteria, Office Visit; Not Available Not Available Not Available varenicli ne tartrate 1 mg tablet TAKE 1/2 TABLET BY MOUTH ONCE DAILY FOR 3 DAYS THEN TAKE 1/2 TABLET TWICE DAILY FOR FOUR DAYS THEN INCREASE TO ONE TABLET TWICE DAILY 01/26 completed Not Available Not Available Not Available Symbicort 160 mcg-4.5 mcg/actua tion HFA aerosol inhaler INHALE 2 PUFFS into lungs TWICE DAILY active Not Available Not Available No t Available diclofena c 1 % topical gel APPLY 4 GRAMS TO THE AFFECTED AREA(S) BY TOPICAL ROUTE 4 TIMES PER DAY 08/29 completed Not Available Not Available Not Available potassium chloride ER 20 mEq tablet,ex tended release Take 1 tablet every day by oral route. 01/26 completed Not Available Not Available Not Available Narcan 4 mg/actuat ion nasal spray CALL 911 ADMINIST ER A SINGLE SPRAY OF NARCAN IN ONE NOSTRIL REPEAT EVERY 2 TO 3 MINUTES NEEDED IF NO OR MINIMAL RESPONSE active Not Available Not Available No t Available Mavyret 100 mg-40 mg tablet TAKE 3 tablets every DAY by oral route FOR 28 DAYS. 03/06 completed Not Available Not Available Not Available Vitals Date Recorded Body height Body mass index (BMI) Body weight Body temperature Oxygen saturation Oxygen saturation in Arterial blood by Pulse oximetry Heart rate Systolic And Diastolic Provider Name and Address Organization Details Last Updated DateTime 5 185.42 cm 36.4 kg/m2 607003. 49 g 97.5 [degF] 98 % 98 % 87 /min 136/108 mm[Hg] [facility], [facility] 5 16:44:21 Social History Question Answer Notes LastModified by Organizat ion Details LastModified Time Tobacco Smoking Status Current Every Day [facility]23 11:00:58 What Is Your Level Of Caffeine Consumption? Moderate Information not available 03/06/2023 What Type Of Diet Are You Following? REGULAR Information not available 03/06/2023 What Is The Highest Grade Or Level Of School You Have Completed Or The Highest Degree You Have Received? [id number] Information not available 03/06/2023 Which Of Your Hands Is Dominant? Right Information not available 03/06/2023 What Was The Date Of Your Most Recent Tobacco Screening? 11/08/2024 [email or web address] Information not available 11/08/2024 What Is Your Current Pack Years? 30ormorepacky ears [email or web address] Information not available 11/08/2024 What Is Your Relationship Status? Information not available 03/06/2023 At What Age Did You Start Smoking Tobacco? 15 Information not available 11/08/2024 How Much Tobacco Do You Smoke? 1 PPD Information not available 11/08/2024 How Many Years Have You Smoked Tobacco? 32 Information not available 11/08/2024 Which Types Of Nicotine-free Products Have You Used? Pouches [email or web address] Information not available 11/08/2024 Do You Have Any Dietary Restrictions? No Information not available 03/06/2023 How Many Years Have You Used E-cigarettes Or Vape? 1 [email or web address] Information not available 11/08/2024 Sex: Unknown Functional Status Question Answer Note LastModified by Organizat ion Details LastModified Time How many times per week do you consume alcohol? 5-7 times per week [email or web address] Information not available 07/12/2024 Do you use any illicit or recreational drugs? Yes Information not available 10/13/2024 Do you or have you ever used any other forms of tobacco or nicotine? Yes Information not available 11/08/2024 What is your level of alcohol consumption? Moderate Information not available 03/06/2023 Do you or have you ever used smokeless tobacco? Never used smokeless tobacco [email or web address] Information not available 11/08/2024 Are you currently employed? Yes Information not available 03/06/2023 Are you able to walk independently without assistance or assistive devices? YESWOREST Information not available 03/06/2023 Are you able to care for yourself independently? Yes Information not available 03/06/2023 Do you or have you ever used e-cigarettes or vape? Former user of electronic cigarettes [email or web address] Information not available 11/08/2024 Do you or have you ever used any nicotine-free cigarettes, vape, or chewing tobacco? Yes [email or web address] Information not available 11/08/2024 Do you currently use nicotine-free products or are you a former user of these products? Formerly used nicotine-free products [email or web address] Information not available 11/08/2024 Mental Status None recorded. Family History Nothing Reported Notes:diabetes cancer Medical History No medical history recorded. Immunizations Vaccine Type Date Status Note Provider Nam e and Address Organization Details Recorded Time Td (adult), 2 Lf tetanus toxoid, preservative free, adsorbed 1 completed QIANA dominguez [facility] 08/13/2022 14:35:24 Past Encounters Encounter ID Performer Location Encounter Start Date Encounter Closed Date Diagnosis/Indication Diagnosis SNOMED-CT Code Diagnosis ICD10 Code Diagnosis IMO Codes Diagnosis Note [id number] Lisbeth Jj MD [facility] ([facility]) [address] [place] [phone] 10/13/2024 15:17:33 10/13/2024 15:56:46 Spinal stenosis in cervical region 62850322 M48.02 Given the patient's imaging findings and physical exam findings, the patient would likely benefit from surgery. Will send neurosurge ry referral to [facility] Will increase his hydrocodon e to every 4 hours to help with pain management . [id number] Lisbeth Jj MD [facility] ([facility]) [address] [place] [address] 11/08/2024 16:26:54 11/08/2024 17:58:15 Abnormal gait 45214844 R26.81 484019 The patient does have significan t gait instabilit y. Discussed utilizing a walker to help with mobilizati on. Patient was encouraged to try to exercise. Recommend physical therapy. At [facility] risk for falls 227280680 Z91.81 7592939 Weakness o f bilateral lower limb 9072235972 77965 R29.898 040686 This is related to his chronic back issues Depressive disorder 6654 0008 F32.A Discussed increasing his venlafaxin e and the patient was agreeable. Health Concerns Section Related Observation LastModified by Organization Detai ls LastModified Time None Recorded Concern Status LastModified by Organization Details LastModified Time None Recorded Payers Encounter Date Sequence Insurance Name Policy Number Policy Vernon Covered Member ID Vernon Member ID Guarantor Name 11/08/2024 2 [facility] (MEDICAID REPLACEMENT - HMO) ADRY Kelsey [id number] Rohith Kelsey 11/08/2024 1 DEVYN - ADRIANEETTER [facility] (EPO) Rohith Kelsey [id number] Rohith Kelsey Notes Date Note Type Note Provider Name and Address Organization Details Recorded Time 11/08/2024 text/html Pt is here for follow up of medicationHe would like to discuss left hip pain and nerve pain in the right hand that is numb.Pt states he fell in his bathroom, was stuck in the bathroom for 4 hours due to not being able to get himself off the floor. His spouse was able to squeeze through the door and frame, then rolled him over to his knees and crawled out. Took her 3 tries to get him from the floor to the bed.Pt has fallen 3x in the last few weeks. Patient also reports that he is continuing to struggle with his depression. Lisbeth Jj MD [address] [place] [address], [phone], [facility], Ashley 11/12/2024 09:41:04
--- OUTSIDE RECORDS SUMMARY | 2024-11-12 11:21 | XMS_ITS | Encounter Summary ---
Author Organization 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 [address] [place] [address] Tiff Eden MD [address] [facility] [address] [place] [address] SYNCOPE AND COLLAPSE (Primary Dx) Social History Tobacco Use Types Packs/Day Years Used Date Smoking Tobacco: Never Assessed Sex and Gender Information Value Date Recorded Sex Assigned at Not on file 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
--- OUTSIDE RECORDS SUMMARY | 2024-11-12 11:21 | XMS_ITS | Clinical Summary ---
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 Gender Identity Not on file Sexual Orientation Not on file Plan of Treatment Health Maintenance Due Date Last Done Comments HEPATITIS B VACCINES (1 of 3 - 19+ 3-dose series) 10/17 DTAP/TDAP/TD VACCINES (1 - Tdap) 06/03/2000 06/03/19 COLORECTAL SCREENING 2014 Colorectal Cancer Screening 2014 FIT-DNA Q 3 years 2014 FIT/FOBT Q 1 year 2014 Flex Sig/CT Colonography Q 5 years 2014 ZOSTER VACCINE (1 of 2) 10/28/2019 INFLUENZA VACCINE (#1) 2024 Care Teams Computer Animator Relationship Specialty Start Date End Date Cristopher Menard MD [address] [facility] [place] [phone] PCP - General 01/29/04
--- OUTSIDE RECORDS SUMMARY | 2024-11-12 11:21 | XMS_ITS | Patient Health Record ---
Author Organization [facility] Address [address] [place] [address] Support Name Relationship Address Phone [facility] Emergency Contact [address] [place], [place] [id number] Rohith Kelsey Guarantor Unknown Reason For Referral No Information Medications Medication SIG (Take, Route, Frequency, Duration) Notes Start Date End Date Status Citalopram 20 MG Oral Tablet Citalopram 20 MG Oral Tablet 08/13/2016 Active Acetaminophen 325 MG / Hydrocodone Bitartrate 5 MG Oral Tablet Acetaminophen 325 MG / Hydrocodone Bitartrate 5 MG Oral Tablet 11/14/2015 Active Imodium A-D *please review f or potential update for e-prescription and drug interaction check* Active meloxicam 15 MG Oral Tablet meloxicam 15 MG Oral Tablet 07/16/2016 Active Social History Social History Additional Details Category Social Info Options Details zzMigrated Social History Migrated Social History Smoking Status:Smokes tobacco daily (finding) Plan Of Treatment No Information
--- OUTSIDE RECORDS SUMMARY | 2024-11-12 11:21 | XMS_ITS | Encounter Summary ---
Author Organization [facility] Address [address] [place] [address] Care Team Providers Care Tear Down Matcher Name Role Phone Cristopher Menard MD Primary Care Provider Encounter Details Date Type Department Care Team (Latest Contact Info) Description 01/29/2004 Outpatient Historical [facility] [address] [place] [phone] Cristopher Menard MD [address] [place] [address] LUMBOSACRAL SPONDYLOSIS (Primary Dx) Social History Tobacco Use Types Packs/Day Years Used Date Smoking Tobacco: Never Assessed Sex and Gender Information Value Date Recorded Sex Assigned at Not on file 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
--- OUTSIDE RECORDS SUMMARY | 2024-11-12 11:21 | XMS_ITS | Data Portability ---
Author Organization DESHAWN Burks [facility] Ashley Almanzar [facility] Address [address] [facility] [address] [place] [address] Care Team Providers Care Cad Draftsman Name Role Phone LISBETH JJ Primary Care Provider [phone] Assessment No assessment recorded. Plan of Treatment Reminders Order Date Submit Date Provider Last Modified By Organization Details Last Modified Time Details Appointments None recorded. Lab lipid panel, blood 2024 025 [facility], [address] [place] [address], [address], [place], [address], 10:18:16 microalbumi n/creatinin e, mass ratio, urine 2024 025 [facility], [address] [place] [address] 248, [address], [place], [address], 07:29:40 hemoglobin A1C/hemoglo bin total, QN, blood 2024 025 [place] [facility], [address], [address], [place], [address], 5 17:39:29 CMP, serum or plasma 2024 025 [facility], [address] [place] [address] 248, [address], [place], [place], [address], 5 07:29:39 CBC 2024 025 [facility], [address] [facility], [address], [place], [address], 17:33:50 Referral neurologica l surgeon referral 2024 025 [email or web address] [facility], [address] [place], [address], 16:43:[address] referral [address] Pulmonology - Dr Datar, [address] [facility], [address], [place], [address], 11:09:28 Procedures None recorded. Surgeries None recorded. Imaging LDCT, chest, for lung cancer screening - To be done in December: 12/20/20242024 025 [facility], [address] [place], [address], 16:08:04 Medication Orders venlafaxine ER 150 mg capsule,ext ended release 24 hr 2024 025 [facility], [place], operated [facility], [facility] [address] [place], [place], [id number], 16:31:47 hydrocodone 7.5 mg-acetamin ophen 325 mg tablet 2024 025 [facility], [place], [facility], [address] [place], [place], [id number], 12:37:00 nicotine 21 mg/24 hr daily transdermal patch 2024 025 [facility], [facility] [address] [place], [place], [id number], 17:51:01 nicotine 14 mg/24 hr daily transdermal patch 2024 025 [facility], [facility] [address] [place], [place], [id number], 05:01:45 nicotine 7 mg/24 hr daily transdermal patch 2024 025 [facility], [facility] [address] [place], [place], [id number], 05:01:45 prednisone 20 mg tablet 2024 025 [facility], [facility] [address] [place], [place], [id number], 15:37:46 azithromyci n 250 mg tablet 2024 [facility], [facility] [address] [place], [place], [id number], 15:29:12 hydrocodone 7.5 mg-acetamin ophen 325 mg tablet 2024 025 [facility], [facility] [address] [place], [place], [id number], 11:54:34 Patient TargetsNo targets recorded. Patient Instructions Encounter Date Encounter Id Patient Instructions Last Modified By Organization Details Last Modified Time 10/07/2024 [id number] smoking cessatio n counseling, greater than 3 minutes up to 10 minutes* [email or web address] Not available 10/15/2024 15:05:14 Reason for Referral Moisture Tester Referral for C hronic obstructive pulmonary disease Referring Physician: Lisbeth Jj Family Medicine, Encounter Date: 10/07/2024 Neurological Surgeon Referra l for Spinal stenosis in cervical region Referring Physician: Lisbeth Jj Family Medicine, Encounter Date: 10/13/2024 Results Created Date Observation Date Name Description Value Unit Range Abnormal Flag Note LastModifiedBy Organization Detail LastModifiedTime 07/13/19 25 07/12/2024 CBC WBC 8.0 x10 4.5-10 .5 Not Available [facility] [address] [facility] [address] [facility] [address], [place], [address], 07/12/2024 17:33:50 07/13/1907/12/2024 CBC RBC 4.67 x10 4.30-5 .90 Not Available [facility] [address] [place] [facility] [address] [facility] [address], [place], [address], 07/12/2024 17:33:50 07/13/19 25 07/12/2024 CBC HGB 15.8 g/dL 13.5-1 8.0 Not Available [facility] [address] [place] [facility] [address] [facility] [address], [place], [address], 07/12/2024 17:33:50 07/13/1907/12/2024 CBC HCT 46.4 % 35.0-6 0.0 Not Available [facility] [address] [place] [facility] [address] [address], [place], [address], 07/12/2024 17:33:50 07/13/1907/12/2024 CBC MCV 99.4 fL 80.0-9 9.9 Not Available [facility] [address] [place] [facility] [address] [facility] [address], [place], [address], 07/12/2024 17:33:50 07/13/1907/12/2024 CBC MCH 33.9 pg 27.0-3 2.0 high Not Available [facility] [address] [place] [facility] [address], [place], [address], 07/12/2024 17:33:50 07/13/1907/12/2024 CBC MCHC 34.1 g/dL 32.0-3 6.0 Not Available [facility] [address] [place] [facility] [address], [place], [address], 07/12/2024 17:33:50 07/13/19 25 07/12/2024 CBC RDW 12.4 % 11.5-1 4.5 Not Available [facility] [address] [facility] [address], [place], [address], 07/12/2024 17:33:50 07/13/19 25 07/12/2024 CBC plt 289.4 x10 150.0- 451.0 Not Available [facility] [address] [facility] [address], [place], [address], 07/12/2024 17:33:50 07/13/19 25 07/12/2024 CBC lymphocytes % 31.0 % 20.0-5 0.0 Not Available [facility] [address] [facility] [address], [place], [address], 07/12/2024 17:33:50 07/13/19 25 07/12/2024 CBC granulcytes % 53.6 % 30.0-7 0.0 Not Available [facility] [address] [facility] [address], [place], [address], 07/12/2024 17:33:50 07/13/19 25 07/12/2024 CBC monocytes % 8.2 % 2.0-16 .0 Not Available [facility] [address] [facility] [address], [place], [address], 07/12/2024 17:33:50 07/13/19 25 07/12/2024 CBC granulcytes# 4.3 x10 Not La ilable [facility] [address] [facility] [address], [place], [address], 07/12/2024 17:33:50 07/13/19 25 07/12/2024 CBC lymphocytes # 2.5 x10 Not Available [facility] [address] [facility] [address], [place], [address], 07/12/2024 17:33:50 07/13/19 25 07/12/2024 CBC monocytes # 0.7 x10 Not Avai lable [facility] [address] [facility] [address], [place], [address], 07/12/2024 17:33:50 07/13/19 25 07/12/2024 HBA1C hemaglobin A1C 5.9 4.2-6. 5 Not Available [facility] [address] [facility] [address], [place], [address], 07/12/2024 17:39:29 07/13/19 25 07/13/2024 LIPID PANEL , STAND ADRIENNE cholesterol, total 157 mg/dL <200 normal Not Available [address] [address] [place], [address], 07/13/2024 07:29:38 07/13/19 25 07/13/2024 LIPID PANEL , STAND ADRIENNE HDL cholesterol 51 mg/dL > or = 40 normal Not Available [address] [address] [place], [address], 07/13/2024 07:29:38 07/13/19 25 07/13/2024 LIPID PANEL , STAND ADRIENNE triglyceride s 141 mg/dL <150 normal Not Available [address] [place], [address], 07/13/2024 07:29:38 07/13/1907/13/2024 LIPID PANEL , STAND ADRIENNE LDL-choleste rol 82 mg/dL _(rubia c) normal Refer ence range : <100 Robert able range <100 mg/dL for prima ry preve ntion ; <70 mg/dL for patie nts with CHD or diabe tic patie nts with > or = 2 CHD risk facto rs. LDL-C is now calcu lated using the Amanda n-Hop kins calcu latsue n, which is a valid ated novel metho d leanne whitaker r accur acdamian than the Fried jesus equat ion in the estim ation of LDL-C . Amanda n SS et al. EBONI. 2013; 310(1 9): 2061- 2068 (http ://ed ucati on.[employer] Jerrell Kleek. com/f aq/FA Q164) Not Available [facility] [address] [address] [place], [address], 07/13/2024 07:29:38 07/13/1907/13/2024 LIPID PANEL , STAND ADRIENNE chol/HDLC ratio 3.1 (calc ) <5.0 normal Not Available [facility] [address] [address] [place], [address], 07/13/2024 07:29:38 07/13/1907/13/2024 LIPID PANEL , STAND ADRIENNE non HDL cholesterol 106 mg/dL _(rubia c) <130 normal For patie nts with diabe danyell plus 1 major ASCVD risk facto r, treat ing to a non-H DL-C goal of <100 mg/dL (LDL- C of <70 mg/dL ) is consi dered a thera peuti c optio n. Not Available [facility] [address], [address], 07/13/2024 07:29:38 07/13/1907/13/2024 COMPR EHENS AROLDO METAB OLIC PANEL glucose 123 mg/dL 65-99 high Fasti ng refer ence inter roland For someo ne witho ut known diabe danyell, a gluco se value betwe en 100 and 125 mg/dL is consi stent with predi abete s and shoul d be confi rmed with a follo w-up test. Not Available [facility] [address] [address] [place], [address], 07/13/2024 07:29:39 07/13/1907/13/2024 COMPR EHENS AROLDO METAB OLIC PANEL urea nitrogen (BUN) 6 mg/dL 7-25 low Not Available [facility] [address] [address] [place], [address], 07/13/2024 07:29:39 07/13/1907/13/2024 COMPR EHENS AROLDO METAB OLIC PANEL creatinine 0.84 mg/dL 0.70-1 .30 normal Not Available [address], [address], 07/13/2024 07:29:39 07/13/1907/13/2024 COMPR EHENS AROLDO METAB OLIC PANEL eGFR 104 mL/mi n/1.7 3m2 > or = 60 normal Not Available [address], [address], 07/13/2024 07:29:39 07/13/19 25 07/13/2024 COMPR EHENS AROLDO METAB OLIC PANEL BUN/creatini ne ratio 7 (calc ) 6-22 normal Not Available [address], [address], 07/13/2024 07:29:39 07/13/19 25 07/13/2024 COMPR EHENS AROLDO METAB OLIC PANEL sodium 137 mmol/ L 135-14 6 normal Not Available [address], [address], 07/13/2024 07:29:39 07/13/1907/13/2024 COMPR EHENS AROLDO METAB OLIC PANEL potassium 4.3 mmol/ L 3.5-5. 3 normal Not Available [address], [address], 07/13/2024 07:29:39 07/13/1907/13/2024 COMPR EHENS AROLDO METAB OLIC PANEL chloride 100 mmol/ L 98-110 normal Not Available [address], [address], 07/13/2024 07:29:39 07/13/19 25 07/13/2024 COMPR EHENS AROLDO METAB OLIC PANEL carbon dioxide 26 mmol/ L 20-32 normal Not Available [address], [address], 07/13/2024 07:29:39 07/13/19 25 07/13/2024 COMPR EHENS AROLDO METAB OLIC PANEL calcium 10.1 mg/dL 8.6-10 .3 normal Not Available [address], [address], 07/13/2024 07:29:39 07/13/19 25 07/13/2024 COMPR EHENS AROLDO METAB OLIC PANEL protein, total 7.6 g/dL 6.1-8. 1 normal Not Available [address], [address], 07/13/2024 07:29:39 07/13/19 25 07/13/2024 COMPR EHENS AROLDO METAB OLIC PANEL albumin 4.6 g/dL 3.6-5. 1 normal Not Available [address], [address], 07/13/2024 07:29:39 07/13/19 25 07/13/2024 COMPR EHENS AROLDO METAB OLIC PANEL globulin 3.0 g/dL_ (calc ) 1.9-3. 7 normal Not Available [address], [address], 07/13/2024 07:29:39 07/13/19 25 07/13/2024 COMPR EHENS AROLDO METAB OLIC PANEL albumin/glob ulin ratio 1.5 (calc ) 1.0-2. 5 normal Not Available [address], [address], 07/13/2024 07:29:39 07/13/19 25 07/13/2024 COMPR EHENS AROLDO METAB OLIC PANEL bilirubin, total 0.4 mg/dL 0.2-1. 2 normal Not Available [facility] [address], [address], 07/13/2024 07:29:39 07/13/19 25 07/13/2024 COMPR EHENS AROLDO METAB OLIC PANEL alkaline phosphatase 66 U/L 35-144 normal Not Available [address], [address], 07/13/2024 07:29:39 07/13/19 25 07/13/2024 COMPR EHENS AROLDO METAB OLIC PANEL AST 23 U/L 10-35 normal Not Available [address], [address], 07/13/2024 07:29:39 07/13/19 25 07/13/2024 COMPR EHENS AROLDO METAB OLIC PANEL ALT 28 U/L 9-46 normal Not Available [address], [address], 07/13/2024 07:29:39 07/13/19 25 07/13/2024 ALBUM IN, RANDO M URINE W/CRE ATINI NE creatinine, random urine 75 mg/dL 20-320 normal Not Available [address], [address], 07/13/2024 07:29:40 07/13/19 25 07/13/2024 ALBUM IN, RANDO M URINE W/CRE ATINI NE albumin, urine 0.5 mg/dL see note: normal Refer ence Range : Refer ence Range Not estab lishe d Not Available [address], [address], 07/13/2024 07:29:40 07/13/19 25 07/13/2024 ALBUM IN, RANDO M URINE W/CRE ATINI NE albumin/crea tinine ratio, random urine 7 mg/g_ creat <30 normal The ADA defin es abnor malit ies in album in excre tion as follo ws: Album inuri a Categ ory Resul t (mg/g creat inine ) Mary Kay l to Mildl y incre ased <30 Moder ately incre ased 30-29 9 Sever max incre ased > OR = 300 The ADA recom mends that at least two of three speci mens colle cted withi n a 3-6 month perio d be abnor mal befor e consi cruzito g a patie nt to be withi n a diagn ostic categ ory. Not Available [facility] [address] [place], [address], 07/13/2024 07:29:40 04/27/19 25 04/26/2024 MRI, cervi rubia spine , w/ contr ast No observ ation record ed. [facility] (Scheduling Orders) [address] [place], [address], 04/29/2024 14:32:46 Result Notes None recorded. Problems Name Problem SNOMED Code Status Onset Date Resolution Date Notes Provider Name and Address Organization Details Recorded Time Arthropa thy 880684877 Active 2022 ARTHRITI S; Impressi on: we will evaluate for RA.; Recorded 05/04/19 23 7:01AM by Lisbeth Jj MD, Office Visit; Promoted ; acuity set as *; QIANA dominguez [facility] 3 09:42:47 [facility]ia l hyperten bita 98409275 Active 2022 QIANA dominguez [facility] 3 09:42:47 Type 2 diabetes mellitus 48562625 Active 2022 QIANA dominguez [facility]CT[facility] 3 09:42:47 Osteoart hritis 706517987 Active 2022 QIANA dominguez [facility] 3 09:42:47 Cholelit hiasis without obstruct ion 93982390 Completed 202204/24/2024 Carolann dominguez, [facility] 5 14:13:34 Chronic obstruct aroldo pulmonar y disease 31981805 Active 2022 QIANA DEXTER dominguez, [facility] 3 09:42:47 Chronic hepatiti s C 571952235 Active 2022 QIANA dominguez, [facility] 3 09:42:47 Lumbar radiculo twila 731492952 Active 2022 QIANA dominguez, [facility] 3 11:02:03 Psoriasi s annulari s 041845325 Active 2023 Carolann dominguez [facility] 5 14:15:45 Rotator cuff arthropa thy of right shoulder 72174854994 787383 Active 2023 Carolann dominguez, [facility] 5 14:16:01 Intermit tent claudica tion 82598696 Completed 202304/24/2024 Carolann dominguez, [facility] 5 14:15:22 Spinal stenosis of lumbar region 76579077 Active 2023 Carolann dominguez, [facility] 5 14:16:09 Anxiety 46924221 Active 2023 Carolann dominguez, [facility] 5 14:13:55 Cervical radiculo twila 11903495 Active 2023 Carolann dominguez [facility] 5 14:14:14 Mass of shoulder region 507483401 Active 2023 Carolann domniguez [facility] 5 14:15:38 Atrophy of muscle of left forearm 59324474571 9106 Active 2024 Carolann dominguez, [facility] 5 14:14:05 Insomnia 337693669 Active 2024 Carolann dominguez, [facility] 5 14:14:23 Depressi ve disorder 86674617 Active 2024 Carolann dominguez, [facility] 5 16:36:11 Spinal stenosis in cervical region 98950230 Active 2024 Daniel Esteban dominguez, [facility] 5 13:22:59 Bilatera l lower limb edema 105256241 Active 2024 Lisbeth Jj MD [address] [place] [address] 5, [facility] 5 16:27:38 Smoker 71279604 Active 2024 Lisbeth Jj MD [address] [place] [address] 5, [facility] 5 10:15:36 Acute exacerba tion of chronic obstruct aroldo pulmonar y disease 618582419 Active 2024 Lisbeth Jj MD [address] [place] [address], [address], [facility] 5 10:20:56 Abnormal gait 86977891 Active 2024 Lisbeth Jj MD [address] [place], [place] [address], [facility] 5 17:19:17 Weakness of bilatera l lower limb Active 2024 Lisbeth Jj MD [address] [place], [address], [facility], LTruongLTanisha 5 17:19:35 Problem Notes None recorded. Procedures Surgical History Date Name Laterality Status Provider Name and Address Organization Details Recorded Time 2023 esophagogastroduodenoscopy with endoscopic ultrasound of upper gastrointestinal tract completed QIANA RENTERIA [facility], LTruongLTanisha 4 08:21:35 decompression of bernard ateral median nerves completed Daniel [facility], LTruongLTruongCTruong 5 09:06:28 procedure on shoulder completed Peter schwartz [facility], LTruongLTruongCTruong 5 09:06:54 Imaging Results None recorded. Procedure Notes None recorded. Medical Equipment None Reported. Allergies Allergen ID Allergen Name Allergen Category Reaction Reaction Severity Criticality Documentation Date Start Date Code Code System Note Provider Name and Address Organization Details Recorded Time 2521 aspirin medicatio n rash Not available Not available 06/19/2022 1191 RxNorm JIGAR dominguez [facility]LT[facility]ongCT[facility] 3 12:15:29 Medications Name Sig Start Date [...] height Body mass index (BMI) Body weight Respiratory rate Body temperature Heart rate Oxygen saturation Oxygen saturation in Arterial blood by Pulse oximetry Systolic And Diastolic Provider Name and Address Organization Details Last Updated DateTime 5 185.42 cm 23.3 kg/m2 00693.0 6 g 20 /min 97.5 [degF] 90 /min 96 % 96 % 144/82 mm[Hg] Daniel Orellana [facility] 5 12:30:18 Date Recorded Body height Body mass index (BMI) Body weight Body temperature Oxygen saturation Oxygen saturation in Arterial blood by Pulse oximetry Heart rate Systolic And Diastolic Provider Name and Address Organization Details Last Updated DateTime 5 185.42 cm 34.7 kg/m2 089261. 79 g 97.6 [degF] 98 % 98 % 94 /min 160/110 mm[Hg] [facility] 5 15:57:08 Date Recorded Body height Body mass index (BMI) Body weight Oxygen saturation Oxygen saturation in Arterial blood by Pulse oximetry Heart rate Systolic And Diastolic Provider Name and Address Organization Details Last Updated DateTime 5 185.42 cm 35.8 kg/m2 312992. 53 g 94 % 94 % 82 /min 132/67 mm[Hg] Kelli Bonner [facility] 5 09:44:59 Date Recorded Body height Body mass index (BMI) Body weight Body temperature Oxygen saturation Oxygen saturation in Arterial blood by Pulse oximetry Heart rate Systolic And Diastolic Provider Name and Address Organization Details Last Updated DateTime 5 185.42 cm 35.8 kg/m2 798029. 53 g 97.7 [degF] 99 % 99 % 105 /min 140/90 mm[Hg] [facility] 5 15:23:52 Date Recorded Body height Body mass index (BMI) Body weight Body temperature Oxygen saturation Oxygen saturation in Arterial blood by Pulse oximetry Heart rate Systolic And Diastolic Provider Name and Address Organization Details Last Updated DateTime 5 185.42 cm 36.4 kg/m2 672279. 49 g 97.5 [degF] 98 % 98 % 87 /min 136/108 mm[Hg] [facility] 5 16:44:21 Social History Question Answer Notes LastModified by Organizat ion Details LastModified Time Tobacco Smoking Status Current Every Day [facility] 03/06/2023 11:00:58 What Is Your Level Of Caffeine Consumption? Moderate Information not available 03/06/2023 What Type Of Diet Are You Following? REGULAR Information not available 03/06/2023 What Is The Highest Grade Or Level Of School You Have Completed Or The Highest Degree You Have Received? [id number] Information not available 03/06/2023 Which Of Your Hands Is Dominant? Right Information not available 03/06/2023 What Was The Date Of Your Most Recent Tobacco Screening? 11/08/2024 [email or web address] Information not available 11/08/2024 What Is Your Current Pack Years? 30ormorepacky ears [email or web address] Information not available 11/08/2024 What Is Your Relationship Status? Information not available 03/06/2023 At What Age Did You Start Smoking Tobacco? 15 [email or web address] Information not available 11/08/2024 How Much Tobacco Do You Smoke? 1 PPD Information not available 11/08/2024 How Many Years Have You Smoked Tobacco? 32 Information not available 11/08/2024 Which Types Of Nicotine-free Products Have You Used? Pouches [email or web address] Information not available 11/08/2024 Do You Have Any Dietary Restrictions? No Information not available 03/06/2023 How Many Years Have You Used E-cigarettes Or Vape? 1 [email or web address] Information not available 11/08/2024 Sex: Unknown Functional Status Question Answer Note LastModified by [employer] ion Details LastModified Time How many times per week do you consume alcohol? 5-7 times per week [email or web address] Information not available 07/12/2024 Do you use any illicit or recreational drugs? Yes Information not available 10/13/2024 Do you or have you ever used any other forms of tobacco or nicotine? Yes Information not available 11/08/2024 What is your level of alcohol consumption? Moderate Information not available 03/06/2023 Do you or have you ever used smokeless tobacco? Never used smokeless tobacco [email or web address] Information not available 11/08/2024 Are you currently employed? Yes Information not available 03/06/2023 Are you able to walk independently without assistance or assistive devices? [email or web address] Information not available 03/06/2023 Are you able to care for yourself independently? Yes Information not available 03/06/2023 Do you or have you ever used e-cigarettes or vape? Former user of electronic cigarettes [email or web address] Information not available 11/08/2024 Do you or have you ever used any nicotine-free cigarettes, vape, or chewing tobacco? Yes [email or web address] Information not available 11/08/2024 Do you currently use nicotine-free products or are you a former user of these products? Formerly used nicotine-free products [email or web address] Information not available 11/08/2024 Mental Status None recorded. Family History Nothing Reported Notes:diabetes cancer Medical History No medical history recorded. 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 Continue to monitor lower leg. If increasing erythema, drainage, fever, or streaking occurs, return for further evaluation . Essential hypertension 88713127 I10 Continue 10mg amlodipine daily. Start 10 mg lisinopril daily. Discussed with patient in detail the maximum dose of amlodipine is 10mg and he should not be doubling this medication . Encouraged patient to continue to monitor BP daily and to follow up with PCP in 1 week. Discussed side effects of lisinopril and encouraged patient to be re-evaluat ed if symptoms occur. Chronic arthritis 207623 07 M13.80 Meloxicam 15mg daily refilled, as patient has been tolerating this medication despite the allergy to aspirin. Encouraged patient to follow up with PCP in 1 week. Type 2 lynn betes mellitus 87907920 E11.9 Continue 500mg metformin twice daily. Encouraged patient to continue monitoring blood sugars daily until following up with PCP in 1 week. Discussed side effects of metformin and patient reported that he has been tolerating this medication well. [id number] Lisbeth Jj MD [facility] ([facility]) [address] [place] [address] [phone] 5 06/26/2022 11:20:57 06/26/2022 14:06:52 Type 2 diabetes mellitus 35301040 E11.9 continue metformin. REcheck a1c after 08/12 Osteoarthritis 351961290 M19.90 Spasm of back muscles 20 1296039 M62.830 Cholelithi asis without obstruction 21841868 K80.20 Incidental ly cholelithi asis was noted on Ultrasound . Discussed options and he would like referral to general surgeon for treatment. low fat diet. Pain of mu ltiple joints 65482129 M25.50 pattern of pain is concerning for RA. We will check labs today. [id number] TERRELL DAWSON [facility] ([facility]) [address] [place] [address] [phone] 5 07/22/2022 11:59:05 07/22/2022 16:43:09 Tussive syncope 90361253 R05.4 EKG normal today with the exception of peaked t waves. Spoke with doctor library consultant, patient should monitor blood pressure until seen next week by PCP. Encouraged patient to continue using albuterol PRN. Discussed smoking cessation, patient is not ready to quit. Encouraged patient to keep appointmen t next week with PCP to discuss better cough and SOB control. Reassured with negative exam today. Discussed with patient that if he has another syncope episode, chest pain, dizziness, or severe SOB, he should go to ED. Patient verbalized understand ing. [id number] Lisbeth Jj MD [facility] ([facility]) [address] [place] [address] [phone] 5 08/13/2022 10:28:13 08/13/2022 14:26:24 Chronic obstructive pulmonary disease 47973510 J44.9 We will start treatment with Symbicort may increase to triple therapy if inadequate response is noted. Tobacco user 952633727 Z 72.0 Discussed options for neurologic al help for smoking sensation. Patient would like to proceed with Chantix today. The patient does have greater than 25-pack-ye ar smoking history and is over the age of 50 so he would qualify for low-dose CT so we will send order. Chronic hepatitis C 1283 05789 B18.2 The patient's labs did demonstrat e chronic hepatitis C and the patient was informed of the diagnosis. Patient would like to proceed with treatment. We will obtain additional labs. Patient is already had an ultrasound of his liver which did not demonstrat e any mass but needs to have a fetoprotei n tumor marker and a genotype done. Essential hypertension 38733647 I10 Blood pressure is still elevated on current medication s we will increase his lisinopril to 20 mg. Type 2 lynn betes mellitus 43175584 E11.9 continue metformin. Recheck A1c today. [id number] Lisbeth Jj MD [facility] ([facility]) [address] [place] [address] [phone] 5 09/15/2022 10:52:40 09/15/2022 14:24:51 Lumbar radiculopathy 162930791 M54.16 Discussed home exercise program. Discussed restrictio ns to help patient heal. Start gabapentin to help with nerve pain. Finding of serum tumor marker level 196499914 R79.89 Patient had elevated AFP tumor marker. Liver ultrasound was normal. Recommende d the patient undergo colonoscop y since he has not had one. Patient has a general surgeon evaluation for cholelithi asis on September 18. Recommend discussing possible colonoscop y at the same time of surgery with a general surgeon Chronic hepatitis C 1283 93919 B18.2 Discussed hep C treatment. Given the elevated AFP marker it may prevent us performed prescribin g the medication . We will send the medication over to the specialty pharmacy to hopefully get it approved through his insurance. [id number] Lisbeth Jj MD [facility] ([facility]) [address] [place] [address] [phone] 5 03/06/2023 10:34:30 03/06/2023 12:45:17 Type 2 diabetes mellitus 76621779 E11.9 continue metformin. Recheck A1c today. 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 We will start steroid treatment. Rotator cu ff arthropathy of right shoulder 8909449980 3443644 M25.811 Dr. Cordon was with [facility] orthopedic group and he should be able to make follow-up appointmen t with either Dr. Beckman or Dr. Wang. If needed will send referral. [id number] Lisbeth Jj MD [facility] ([facility]) [address] [place] [address] [phone] 5 04/27/2023 11:04:10 04/27/2023 12:40:09 Chronic hepatitis C 597804539 B18.2 We will check hep C RNA 12 weeks after treatment is completed. Chronic ob structive pulmonary disease 65932358 J44.9 We will add Spiriva to help reduce the chances of future exacerbati ons. Intermitte nt claudication 55509057 I73.9 Paint that intermitte nt claudicati on versus neurologic al claudicati on is the underlying issue for his leg problems. We will screen with [facility] and order an MRI. Spinal eliceo nosis of lumbar region 23898503 M48.062 Will obtain MRI for further evaluation and to determine if interventi on is needed Pain of mu ltiple joints 65219818 M25.50 pattern of pain is concerning for RA. We will check labs today. Acute exac erbation of chronic obstructive pulmonary disease 041509013 J44.1 Treat exacerbati on with Doxy. Will avoid steroids at this time given diabetes. Allergic rhinitis 292093 04 J30.9 Have some signs and symptoms suggestive of chronic allergies and he typically has springtime issues. Will recommend Flonase and cetirizine to minimize triggers Type 2 lynn betes mellitus 85637294 E11.9 continue metformin. Recheck A1c today. [id number] Lisbeth Jj MD [facility] ([facility]) [address] [place] [address] [phone] 5 06/12/2023 11:42:27 06/12/2023 12:23:25 Chronic hepatitis C 379448105 B18.2 Check hep C RNA in 12 weeks. Arthritis 8334765 M19.90 Continue follow-up with rheumatolo gy. Will start tramadol to help with pain management . Lumbar radiculopathy 128 645625 M54.16 Continue home exercises. Discussed MRI results with the patient and he does have multiple levels of degenerati ve changes with nerve impingemen t. Patient would like to go ahead and proceed with neurosurge ry referral at this time. Patient would prefer to stay locally. [id number] Lisbeth Jj MD [facility] ([facility]) [address] [place] [address] [phone] 5 07/20/2023 10:00:00 07/20/2023 10:35:42 Posterior rhinorrhea 32939912 R09.82 Patient sore throat is likely due to postnasal drainage based on today's exam. The patient had not been using Flonase regularly. Encouraged patient to start using it regularly and increase it to 1 spray each nostril twice daily. Muscle spa sm of cervical muscle of neck 9326163488 04 M62.838 Discussed neck stretches and exercises. Recommend lifting restrictio n of no more than 10 to 15 pounds. We will transition to baclofen to see if this improves with his muscle spasms. The patient was instructed to stop other muscle relaxers. Shot of ketorolac provided today. Short course of hydrocodon e was also provided. [id number] Lisbeth Jj MD [facility] ([facility]) [address] [place] [address] [phone] 5 08/24/2023 12:20:30 08/24/2023 12:53:27 Venous stasis edema of bilateral lower limbs 0920104693 2752993 I87.2 Edema does improve with leg elevation. Discussed using compressio n stockings but the patient would like to go ahead and proceed with Lasix at this time as well. Muscle spa sm of cervical muscle of neck 9486488827 M62.838 Encouraged the patient to follow through with lifting restrictio ns. Will provide continued pain management . Dyspnea on exertion 6084 5008 R06.09 Given his edema and dyspnea, I would recommend that he proceed with echo for evaluation of heart and ejection fraction Anxiety 33912592 F41.9 Patient's anxiety is not well-contr olled. Discussed medication s and the patient has been on multiple SSRIs in the past without significan t benefit. Discussed Effexor and the patient was agreeable to try the medication . Follow-up in 1 month. [id number] Lisbeth Jj MD [facility] ([facility]) [address] [place] [address] [phone] 5 12/14/2023 09:34:27 12/14/2023 10:52:20 Cervical radiculopathy 48818039 M54.12 Patient is showing neurologic al deficits suggestive of nerve impingemen t from the cervical spine. Recommend proceeding with MRI for evaluation . Patellar b ursitis of right knee 7186843719 063532 M70.51 Patient has been bursitis of the right knee. Likely related to arthritis. 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 Urged leg elevation and the use of diclofenac gel. Screening for malignant neoplasm of respiratory tract 103143638 Z12.2 Reviewed last low-dose CT which was done in August of last year. The patient needs any repeat especially since he had lung nodules that need follow-up. Muscle spa sm of cervical muscle of neck 4161890913 04 M62.838 Encouraged the patient to follow through with lifting restrictio ns. Will provide continued pain management . [id number] Lisbeth Jj MD [facility] ([facility]) [address] [place] [address] [phone] 5 01/27/2024 12:03:05 01/27/2024 13:14:53 Mass of shoulder region 562148606 R22.32 Recommend ultrasound of the lesion on top of his left shoulder for further evaluation . Lumbar radiculopathy 128 102660 M54.16 Continue home exercises. Patient has nonsurgica l at this time. Will increase his gabapentin due to his increased pain. Cervical radiculopathy 91477942 M54.12 Per insurance, the patient will need to complete 6 weeks of physical therapy. Order has been sent to [facility] physical therapy for her to be scheduled but the patient has not heard from them. Encouraged the patient to call the clinic and schedule his physical therapy. 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 This is progressiv e and not likely to improve with just physical therapy alone. Patient needs an MRI to identify the underlying cause so it can be addressed. Will also place an order for nerve conduction study in case the insurance still declines his MRI. Cervical radiculopathy 44789731 M54.12 Patient needs an MRI based on significan t neurologic al deficits and muscle atrophy Insomnia 245737263 G47.0 0 Will start trazodone to help with his sleep. Depressive disorder 3055 9007 F32.A Discussed increasing his venlafaxin e and the patient was agreeable. [id number] Lisbeth Jj MD [facility] ([facility]) [address] [place] [address] [phone] 5 05/20/2024 11:59:28 05/20/2024 12:58:46 Cervical radiculopathy 37397477 M54.12 Patient does have significan t pathology within his cervical spine. The MRI results were reviewed with the patient. Patient is unsure if he would want to proceed with surgery. Lumbar radiculopathy 128 457281 M54.16 Continue with home exercises. . The patient has had a significan t change in the weakness of his lower legs and this could be contribute d to the stenosis in his lumbar spine versus his neck. Patient was told he was nonsurgica l. Spinal eliceo nosis of lumbar region 06285726 M48.062 This is likely contributi ng to many of the patient's lower leg weakness issues Spinal eliceo nosis in cervical region 19713133 M48.02 Recommend evaluation by neurosurge on to see if there is anything that can be done to help but the patient is reluctant to proceed with surgery at this time. Refills provided for his pain medication . The patient is actively pursuing disability . [id number] Lisbeth Jj MD [facility] ([facility]) [address] [place] [address] [phone] 5 07/12/2024 15:48:00 07/12/2024 16:56:15 Bilateral lower limb edema 245913623 R60.0 3968268 Will check lab work today. Blood pressure significan t elevated this could be contributi ng to the edema as well. Cervical radiculopathy 18704311 M54.12 Patient does have significan t pathology within his cervical spine. The MRI results were reviewed with the patient. Patient is unsure if he would want to proceed with surgery. Essential hypertension 50149005 I10 Patient was encouraged to check blood pressure twice daily for the next week and provide a log of those readings. Type 2 lynn betes mellitus 01973055 E11.9 Will check kidney labs as well as A1c today. Continue current medication s and diabetic diet. Hyperlipid emia screening 775859800 Z13.220 366333 [id number] Lisbeth Jj MD [facility] ([facility]) [address] [place] [address] [phone] 5 10/07/2024 09:33:22 10/07/2024 10:36:13 Chronic obstructive pulmonary disease 29103515 J44.9 Patient continues to struggle with exacerbati ons. Patient was open to seeing a pulmonolog ist. Smoker 24868293 F17.200 098821 Discussed smoking cessation utilizing patches. The patient would like to proceed. The patient is due for his yearly low-dose CT in December. Acute exac erbation of chronic obstructive pulmonary disease 031497363 J44.1 [id number] Will treat exacerbati on with azithromyc in and go ahead and prescribe prednisone given his exam today. [id number] Lisbeth Jj MD [facility] ([facility]) [address] [place] [address] [phone] 5 10/13/2024 15:17:33 10/13/2024 15:56:46 Spinal stenosis in cervical region 97206824 M48.02 Given the patient's imaging findings and physical exam findings, the patient would likely benefit from surgery. Will send neurosurge ry referral to [facility] Will increase his hydrocodon e to every 4 hours to help with pain management . [id number] Lisbeth Jj MD [facility] ([facility]) [address] [place] [address] [phone] 5 11/08/2024 16:26:54 11/08/2024 17:58:15 Abnormal gait 16349632 R26.81 667243 The patient does have significan t gait instabilit y. Discussed utilizing a walker to help with mobilizati on. Patient was encouraged to try to exercise. Recommend physical therapy. At [facility] for falls 704708709 Z91.81 0290054 Weakness o f bilateral lower limb 3658884711 47173 R29.898 549109 This is related to his chronic back issues Depressive disorder 2003 9007 F32.A Discussed increasing his venlafaxin e and the patient was agreeable. Health Concerns Section Related Observation LastModified by Organization Detai ls LastModified Time None Recorded Concern Status LastModified by Organization Details LastModified Time None Recorded Advance Directives Directive None Recorded Payers Insurance Date Sequence Insurance Name Policy Number Policy Vernon Covered Member ID Vernon Member ID Guarantor Name 11/07/2024 1 [employer] [facility] [facility] Rohith Kelsey [id number] 2 Rohith Kelsey 11/05/2024 [place] [facility] (INSTITUTIONAL ) [facility] [place] [id number] Rohith Kelsey 11/05/2024 2 [facility]ICA[place]PL[place] - [place]MO) ADRY Kelsey [id number] Rohith Kelsey 07/12/2024 1 [place] Rohith Kelsey [id number] Rohith Kelsey 11/05/2024 [place] [facility] Rohith Kelsey [id number] Rohith Kelsey Notes Date Note Type Note Provider Name and Address Organization Details Recorded Time 5 text/html Musculoskeletal PainReported by PatientHPIFor quality, patient reportstingling. For severity, patient reportsinterferes with sleep. For location, patient reportsleft neckandleft shoulder. For duration, patient reportspresent for 1-6 months. For timing, patient reportsconstantandpain at night. For aggravating factors, patient reportsmovement/positioning . Here today for f/up after MRI of neck/shoulder. Patient states that the pain is about the same, but has exacerbations with weather changes. Patient states that he has been unable to work over the last several weeks. The patient wants to increase his pain medications. Lisbeth Jj MD [address] [place] [address], [phone], [facility] 05/22/2024 11:42:30 5 text/html Musculoskeletal PainReported by PatientHPIFor quality, patient reportssharp. For severity, patient reportsinterferes with sleep. For associated symptoms, patient reportsnumbness of the legs/feetandincontinencebut reportsno fever. For location, patient reports__ neck,left shoulder,left arm,bilateral wrist,left hand,__ __,thoracic spine,lumbar spine,bilateral knee, andleft ankle. For duration, patient reportspresent for >12 months. For timing, patient reportsconstant. For context, patient reportstrauma. For alleviating factors, patient reportsrest,changing position, andmedications: ___. For aggravating factors, patient reportsmovement/positioning ,bending over, andtwisting. For adls affected, patient reportswalking. This is a 53-year-old gentleman that comes in today for concerns of bilateral feet swelling. The patient states that foot elevation used improve his edema but it is no longer doing so. Patient reports that he has allover body aches that he relates to arthritis. Lisbeth Jj MD [address] [place] [address], [phone], [facility] 07/13/2024 15:08:54 5 text/html COPDReported by PatientROS as noted in the HPI Pt is here today with c/o cough, SOB, PhlemHe states he has a coughing spell and will pass out and he has been doing this a whilePatient would like to quit smoking and would like to try patches. Lisbeth Jj MD [address] [place] [address], [phone], [facility] 10/08/2024 17:26:15 5 text/html Pt would like to be referred to have a referral to have cervical/shoulder surgery. The patient does have significant radiculopathy and loss of muscle mass in his left arm. He would like to know if his hydrocodone can be increased for the days he is in severe pain. Lisbeth Jj MD [address] [place] [address], [phone], [facility], Rodri. 10/17/2024 12:20:21 5 text/html Pt is here for follow up [...] struggle with his depression. Lisbeth Jj MD [address] [place] [address], [phone], [facility], LTruongLKyle. 11/12/2024 09:41:04
--- OUTSIDE RECORDS SUMMARY | 2024-11-12 11:21 | XMS_ITS | Encounter Summary ---
Author Organization [facility] Address [address] [place] [address] Care Team Providers Care Warehouse Person Name Role Phone Cristopher Menard MD Primary Care Provider Encounter Details Date Type Department Care Team (Late st Contact Info) Description 07/04/2004 Outpatient Historical [facility] Cardiology- [place] [address] [place] [address] Tiff Eden MD [address] [place] [address] OBESITY NOS (Primary Dx); SYNCOPE AND COLLAPSE Social History Tobacco Use Types Packs/Day Years Used Date Smoking Tobacco: Never Assessed Sex and Gender Information Value Date Recorded Sex Assigned at Not on file 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
--- OUTSIDE RECORDS SUMMARY | 2024-11-12 11:21 | XMS_ITS | Encounter Summary ---
Author Organization [facility] Address [address] [place] [address] Care Team Providers Care Smoking Tobacco Packer Hand Name Role Phone Cristopher Menard MD Primary Care Provider [phone] Encounter Details Date Type Department Care Team (Late st Contact Info) Description 05/21/2004 Outpatient Historical [facility] Cardiology- [place] [address] [place] [address] Tiff Eden MD [address] 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
--- OUTSIDE RECORDS SUMMARY | 2024-11-12 11:21 | XMS_ITS | Clinical Summary ---
Author Organization [facility] Address [address] [facility] Attn: [place] [address] Care Team Providers Care Tripe Scraper Name Role Phone Cristopher Menard MD Primary Care Provider Allergies No known active allergies Medications amLODIPine (NORVASC) 10 mg tablet Take 10 mg by mouth daily. 08/10/19 24 Active baclofen (LIORESAL) 10 mg tablet Take 1 Tablet by mouth 3 times daily. 07/20/19 24 Active Symbicort 160-4.5 mcg/actuation HFA Aerosol Inhaler Take 2 Puffs by inhalation 2 times daily. 07/10/19 24 Active cetirizine (ZyrTEC) 10 mg tablet Take 1 Tablet by mouth daily. 07/10/19 24 Active fluticasone propionate (FLONASE) 50 mcg/spray [place], Suspension nasal inhaler Administer 1 [place] in each nostril daily. 08/05/19 Active gabapentin (NEURONTIN) 300 mg capsule Take 1 Capsule by mouth 3 times daily. 08/10/19 24 Active lisinopriL (PRINIVIL) 20 mg tablet Take 1 Tablet by mouth daily. 08/10/19 24 Active metFORMIN (GLUCOPHAGE) 500 mg tablet Take 500 mg by mouth 2 times daily with meals. 08/10/19 24 Active Narcan 4 mg/actuation [place], Non-Aerosol 1 [place] by See Admin Instructions route. CALL 911 ADMINISTER A SINGLE SPRAY OF NARCAN IN ONE NOSTRIL REPEAT EVERY 2 TO 3 MINUTES NEEDED IF NO OR MINIMAL RESPONSE 08/10/19 Active pantoprazole (PROTONIX) 40 mg Tablet, Delayed Release (E.C.) Take 1 Tablet by mouth 2 times daily. 06/24/19 Active Spiriva with HandiHaler 18 mcg capsule Take 18 mcg by inhalation daily. 07/15/19 Active traMADoL (ULTRAM) 50 mg tablet Take 1 Tablet by mouth every 6 hours. 07/10/19 Active triamcinolone acetonide (KENALOG) 0.1 % Cream APPLY A THIN LAYER TO THE AFFECTED AREA BY TOPICAL ROUTE TWICE DAILY 08/10/19 Active HYDROcodone-acetam inophen (NORCO) 5-325 mg tablet Take 1 Tablet by mouth every 6 hours as needed. 01/07/20 Active HYDROcodone-acetam inophen (NORCO) 7.5-325 mg Tablet Take 1 Tablet by mouth every 6 hours. 02/03/20 Active cyclobenzaprine (FLEXERIL) 10 mg tablet Take 10 mg by mouth 3 times daily as needed. 02/02/20 Active furosemide (LASIX) 40 mg tablet Take 1 Tablet by mouth daily. 02/02/20 Active potassium chloride (KLOR-CON M20) 20 mEq Extended Release tablet Take 1 Tablet by mouth daily. 02/02/20 Active predniSONE (DELTASONE) 20 mg tablet Take 20 mg by mouth see administration instructions. TAKE ONE TABLET BY MOUTH THREE TIMES DAILY FOR 3 DAYS THEN TAKE ONE TABLET TWICE DAILY FOR 2 DAYS THEN TAKE ONE TABLET ONCE DAILY FOR 2 DAYS 12/08/19 Active gabapentin (NEURONTIN) 400 mg capsule Take 400 mg by mouth. Active varenicline (CHANTIX) 1 mg Tablet Take 1 mg by mouth 2 times daily. Active celecoxib (CeleBREX) 200 mg capsuleIndications :Degeneration of intervertebral disc of lumbar region with discogenic back pain and lower extremity pain,Cervical stenosis of spinal canal,Polyarthralg ia Take 1 Capsule (200 mg) by mouth 2 times daily. 180 Capsule 08/30/19 25 Active Active Problems No known active problems Encounters Date Type Department Care Team Description 09/19/2024 Telephone [facility] [place] [address] [address] Jo Ann Rodriguez PA Patient Communication 09/16/2024 Chart Note [facility] [address] [place] [address] Jo Ann Rodriguez PA 08/30/2024 Telephone [facility] [place] [address] [place] [address] Jo Ann Rodriguez PA Patient Communication 08/29/2024 2:20 PM CDT Office Visit [facility] [address] [place] [address] Jo Ann Rodriguez PA Polyarthralgia (Primary Dx); Rheumatoid factor positive; Degeneration of intervertebral disc of lumbar region with discogenic back pain and lower extremity pain; Cervical stenosis of spinal canal from Last 3 Months Immunizations Immunization Administration Dates Next Due (TDVAX)(7 YRS UP) TETANUS AN D DIPHTHERIA TOXOIDS, ADSORBED (2 LF OF TETANUS TOXOID AND 2 LF OF DIPHTHERIA TOXOID), 0.5ML (PF), IM 06/02/2000 Social History Tobacco Use Types Packs/Day Years Used Date Smoking Tobacco: Every Day Cigarettes 1 37.7 Started: 1987 Passive Smoke Exposure: Past Tobacco Cessation:Ready to Q uit: Not Asked; Counseling Given: Not Answered Sex and Gender Information Value Date Recorded Sex Assigned at Not on file 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 Gender Identity Not on file Sexual Orientation Not on file Last Filed Vital Signs Vital Sign Reading Time Taken Comments Blood Pressure 130/94 08/29/2024 2:14 PM CDT Pulse 96 08/29/2024 2:14 PM CDT Temperature - - Respiratory Rate - - Oxygen Saturation 95% 08/29/2024 2:14 PM CDT Inhaled Oxygen Concentration - - Weight 119.3 kg (263 lb) 08/29/2024 2:14 PM CDT Height 185.4 cm (6' 1 ) 08/29/2024 2:14 PM CDT Body Mass Index 34.7 08/29/2024 2:14 PM CDT Plan of Treatment Health Maintenance Due Date Last Done Comments Pre-Diabetes and Diabetes Screening 1970 HEPATITIS B VACCINES (1 of 3 - 19+ 3-dose series) 10/17 DTAP/TDAP/TD VACCINES (1 - Tdap) 06/03/2000 06/03/19 COLORECTAL SCREENING 2014 Colorectal Cancer Screening 2014 FIT-DNA Q 3 years 2014 FIT/FOBT Q 1 year 2014 Flex Sig/CT Colonography Q 5 years 2014 Lung Cancer Screening 10/28/2019 ZOSTER VACCINE (1 of 2) 10/28/2019 INFLUENZA VACCINE (#1) 2024 Insurance [facility] [id number] [facility] Care Teams Tripe Scraper Relationship Specialty Start Date End Date Cristopher Menard MD [address] [facility] [place] [address] PCP - General 01/29/04
--- NOTE | 2024-11-12 11:27 | XRR_ITS ---
PROCEDURE INFORMATION: Exam: XR Chest Exam date and time: 11/12/2024 11:31 AM Age: 54 years old Clinical indication: Cough; Additional info: Shortness of breath; Cough TECHNIQUE: Imaging protocol: Radiologic exam of the chest. Views: 1 view. COMPARISON: CT lung screening [id number] 12/21/2023 9:07 AM FINDINGS: Lungs: Unremarkable. No consolidation or mass. Pleural spaces: Unremarkable. No pleural effusion. No pneumothorax. Heart/Mediastinum: Unremarkable. No cardiomegaly. Bones/joints: Unremarkable. XR/XR chest 1V portable [id number] IMPRESSION: No acute findings.
--- NOTE | 2024-11-12 11:27 | ECG_ITS ---
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1970 Requested By: Jacqueline Hickey Order Number: [id number] Reading MD: GENET ONEIL Measurements Intervals [place] Rate: 93 P: -22 IN: 145 QRS: 4 QRSD: 109 T: 36 QT: 367 QTc: 458 Interpretive Statements SINUS RHYTHM INFERIOR MYOCARDIAL INFARCTION , PROBABLY OLD [40+ ms Q WAVE AND/OR ST/T ABNORMALITY IN II/aVF] Compared to ECG 04/16/2024 12:43:43 Myocardial infarct finding now present Intraventricular conduction delay no longer present Electronically Signed On 11-12-2024 21:34:12 CDT by GENET ONEIL [id number] [id number]
--- NOTE | 2024-11-12 11:27 | W.ED.SOB ---
HPI - SOB/Dyspnea General: Chief Complaint: Shortness of Breath/Dyspnea Stated Complaint: cough / loss of conciousness Time Seen by Provider: 11/12/24 11:21 History of Present Illness: HPI Narrative: 54-year-old man with a history of obesity, hypertension, and diabetes who presents to the emergency room with a cough which been going on for some time now, syncopal episodes related to the cough and today new symptom of right sided abdominal pain after a coughing fit. Pain in the posterior lateral ribs and in the abdomen in that area. He also has some bilateral edema which seems to be worsening he says. No altered mental status. No focal motor deficits. No chest pain. Related Data Home Medications ?Medication ?Instructions ?Recorded ?Confirmed metformin 500 mg tablet 500 mg PO BID 06/25/22 11/12/24 budesonide-formoterol HFA 160 1 inh inhalation DAILY 03/13/23 11/12/24 mcg-4.5 mcg/actuation aerosol inhaler (Symbicort) gabapentin 300 mg capsule 300 mg PO TID 03/13/23 11/12/24 celecoxib 200 mg capsule 200 mg PO DAILY 12/07/23 11/12/24 fluticasone propionate 50 2 spray intranasal DAILY 12/07/23 11/12/24 mcg/actuation nasal spray,suspension potassium chloride 20 mEq 20 meq PO DAILY 12/07/23 11/12/24 tablet,extended release(part/cryst) tiotropium bromide 18 mcg capsule 1 cap inhalation DAILY 12/07/23 11/12/24 with inhalation device (Spiriva with HandiHaler) hydrocodone 7.5 mg-acetaminophen 1 tab PO Q6H 04/16/24 11/12/24 325 mg tablet trazodone 50 mg tablet 50 mg PO BEDTIME 04/16/24 11/12/24 venlafaxine 150 mg 150 mg PO DAILY 04/16/24 11/12/24 capsule,extended release 24 hr venlafaxine 75 mg capsule,extended 75 mg PO DAILY 04/16/24 11/12/24 release 24 hr baclofen 20 mg tablet 20 mg PO TID PRN Muscle Spasm 08/30/24 11/12/24 furosemide 40 mg tablet 40 mg PO DAILY 11/12/24 11/12/24 furosemide 80 mg tablet 80 mg PO DAILY 11/12/24 11/12/24 nicotine 21 mg/24 hr daily See Rx Instructions .Route .COMPLEX 11/12/24 11/12/24 transdermal patch Previous Rx's ?Medication ?Instructions ?Recorded amlodipine 10 mg tablet (Norvasc) 10 mg PO DAILY #30 tabs 06/04/22 Allergies Allergy/AdvReac Type Severity Reaction Status Date / Time aspirin Allergy ALGY-Hives Verified 08/30/24 10:46 Review of Systems Narrative: Constitutional symptoms: Negative except as documented in HPI. Skin symptoms: Negative except as documented in HPI. Eye symptoms: Negative except as documented in HPI. ENMT symptoms: Negative except as documented in HPI. Respiratory symptoms: Negative except as documented in HPI. Cardiovascular symptoms: Negative except as documented in HPI. Gastrointestinal symptoms: Negative except as documented in HPI. Genitourinary symptoms: Negative except as documented in HPI. Musculoskeletal symptoms: Negative except as documented in HPI. Neurologic symptoms: Negative except as documented in HPI. Psychiatric symptoms: Negative except as documented in HPI. Endocrine symptoms: Negative except as documented in HPI. PFS ED PFSH: Medical History (Updated 11/12/24 @ 13:41 by Jacqueline Newberry MD) Hypertension Family History Other Cancer Diabetes Social History Smoking and tobacco/nicotine status: current every day tobacco/nicotine user cigarettes Packs smoked per day: 1 Alcohol intake: current Alcohol intake frequency: 3 or more drinks per day Alcohol type: beer Physical Exam Narrative: EXAM NARRATIVE: General: Alert, no acute distress. Skin: Warm, dry. Head: Normocephalic, atraumatic. Neck: Supple, trachea midline. Eye: Extraocular movements are intact. Ears, nose, mouth and throat: mucosa moist. Cardiovascular: Regular, Normal peripheral perfusion. 2+ pitting tibial edema Respiratory: Lungs are clear to auscultation, respirations are non-labored, breath sounds are equal, Symmetrical chest wall expansion. Gastrointestinal: Soft, Nontender, Non distended Musculoskeletal: Normal ROM, no deformity. Neurological: Alert and oriented, No focal neurological deficit observed. Psychiatric: Cooperative, appropriate mood & affect. Course Vital Signs: Vital signs: Vital Signs Temperature 97.5 F L 11/12/24 11:19 Pulse Rate 82 09/27/25 13:15 Respiratory Rate 15 11/12/24 13:15 Blood Pressure 137/75 11/12/24 13:15 Pulse Oximetry 95 11/12/24 13:15 Oxygen Delivery Me thod Room Air 11/12/24 12:18 MDM - SOB/Dyspnea Medical Decision Making Medical decision making: Differential diagnosis including but not limited to and based on the above HPI, review of systems and physical exam in this patient with syncope: Vasovagal, orthostatics hypotension, cardiac dysrhythmia, myocardial infarction, infection and hypotension, Orders placed to evaluate differential diagnosis based on the above differential, HPI and physical exam EKG: Time 11:36 AM. Rate 93. Normal sinus rhythm, nonspecific ST changes, no ectopy, normal SC & QRS intervals, This was reviewed and interpreted by myself the ER physician at 11:40 AM Chest x-ray: No acute process. No infiltrate. No pneumothorax. This was reviewed and interpreted by myself the emergency room physician. I also reviewed the radiology report. Lab Review: Laboratory results were reviewed and interpreted by myself the emergency room physician. No leukocytosis. No anemia. No renal failure. Lactic acid is elevated at 4.5. Troponin is elevated at 25. CTA chest PE protocol: With edema and syncopal episodes ordered to rule out PE. Also to rule out underlying infection or rib fractures that might be causing his pain. No acute process was seen. No PE. CT of the abdomen and pelvis with contrast: No acute process. With him having abdominal pain went ahead and covered his abdomen as well. This was reviewed and interpreted by myself the emergency room physician. I also reviewed the radiology report. I reviewed the patient's medical record. Reexamination: Patient has remained stable. His blood pressure is a little bit up but his come down without intervention. No tachycardia. No fever. No increased work of breathing. No altered mental status. He does have quite a bit of edema tells me that when he passes out he will be out for 2 to 3 minutes sometimes. Given his edema, length of syncopal episodes and elevated lactic acid I feel like he needs admitted and observed on the monitor and possibly consider an echocardiogram. Consultation: I spoke with Dr. Mcclain who is on-call for the hospitalist service who agrees to admission. Assessment and plan: Syncope Chronic cough Elevated lactic acid Elevated troponin Edema -I discussed the patient with the hospitalist on-call who is admitting the patient. - Discussed findings and plan with patient. Answered any questions. - All laboratory values were reviewed and interpreted personally by myself, the ER physician - All imaging was reviewed and interpreted personally by myself, the ER physician. - Evaluation and treatment of this problem were appropriate in the emergency setting Lab Data 11/12/24 11:37 11/12/24 11:37 Labs/Radiology: Radiology Impressions Chest X-Ray 11/12/24 11:27 IMPRESSION: No acute findings. Chest/Abdomen/Pelvis CT 11/12/24 12:25 IMPRESSION: No acute findings. IMPRESSION: 1. No acute findings. 2. Prostate enlargement with chronic bladder wall changes Laboratory Results WBC 8.23 10^3/uL (3.29-11.43) 11/12/24 11:37 RBC 4.62 10^6/uL (3.85-5.65) 11/12/24 11:37 Hgb 15.60 g/dL (11.27-16.99) 11/12/24 11:37 Hct 43.9 % (37-53) 11/12/24 11:37 MCV 95.0 fl (82-101) 11/12/24 11:37 MCH 33.8 pg (27-33) H 11/12/24 11:37 MCHC 35.5 g/dL (30-55) 11/12/24 11:37 RDW 11.7 % (12.1-15.1) L 11/12/24 11:37 Plt Count 357 10^3/cmm (157-399) 11/12/24 11:37 MPV 8.8 fL (7.4-10.4) 11/12/24 11:37 Neut % (Auto) 56.8 % 11/12/24 11:37 Lymph % (Auto) 29.0 % 11/12/24 11:37 Barnes % (Auto) 7.8 % 11/12/24 11:37 Eos % (Auto) 5.0 % 11/12/24 11:37 Baso % (Auto) 1.0 % 11/12/24 11:37 Neut # (Auto) 4.68 10^3/uL (1.8-7.7) 11/12/24 11:37 Lymph # (Auto) 2.4 10^3/uL (0.8-4.8) 11/12/24 11:37 Barnes # (Auto) 0.6 10^3/uL (0.2-0.9) 11/12/24 11:37 Eos # (Auto) 0.4 10^3/uL (0.0-0.8) 11/12/24 11:37 Baso # (Auto) 0.1 10^3/uL (0.0-0.1) 11/12/24 11:37 Nucleated RBC % (auto) 0 % 11/12/24 11:37 Nucleated RBCs # 0.0 /100WBC 11/12/24 11:37 Sodium 135 mmol/L (136-145) L 11/12/24 11:37 Potassium 4.0 mmol/L (3.5-5.1) 11/12/24 11:37 Chloride 94 mmol/L (98-107) L 11/12/24 11:37 Carbon Dioxide 24 mmol/L (22-29) 11/12/24 11:37 Anion Gap 21.0 (5-19) H 11/12/24 11:37 BUN 7 mg/dL (6-20) 11/12/24 11:37 Creatinine 0.7 mg/dL (0.7-1.2) 11/12/24 11:37 GFR Calculation 117.1 mL/min (90-130) 11/12/24 11:37 Glucose 310 mg/dL (65-115) H 11/12/24 11:37 Calculated Osmolality 290 mOsm/kg (285-295) 11/12/24 11:37 Lactic Acid 4.2 mmol/L (0.5-2.2) H* 11/12/24 11:37 Calcium 9.5 mg/dL (8.5-10.5) 11/12/24 11:37 Total Bilirubin 0.4 mg/dL (0.15-1.2) 11/12/24 11:37 AST 27 U/L (0-40) 11/12/24 11:37 ALT 28 U/L (0-41) 11/12/24 11:37 Alkaline Phosphatase 100 U/L (40-130) 11/12/24 11:37 Troponin T Baseline 25 ng/L (0-15) H 11/12/24 11:37 C-Reactive Protein 3.0 mg/L (0.0-4.9) 11/12/24 11:37 NT-Pro-B Natriuret Pep 44 pg/mL (0-125) 11/12/24 11:37 Total Protein 7.8 g/dL (6.6-8.7) 11/12/24 11:37 Albumin 4.5 g/dL (3.5-5.2) 11/12/24 11:37 Globulin 3.3 g/dL (1.3-4.6) 11/12/24 11:37 Urine Color Yellow (Yellow) 11/12/24 11:37 Urine Appearance Clear (CLEAR) 11/12/24 11:37 Urine pH 5.0 (5-7) 11/12/24 11:37 Ur Specific [place] 1.005 (1.005-1.030) 11/12/24 11:37 Urine Protein Negative (Negative) 11/12/24 11:37 Urine Glucose (UA) 2+ (Normal) H 11/12/24 11:37 Urine Ketones Negative (Negative) 11/12/24 11:37 Urine Blood Negative (Negative) 11/12/24 11:37 Urine Nitrate Negative (Negative) 11/12/24 11:37 Urine Bilirubin Negative (Negative) 11/12/24 11:37 Urine Urobilinogen 0.2 mg/dL (Negative) 11/12/24 11:37 Ur Leukocyte Esterase Negative (Negative) 11/12/24 11:37 Urine RBC 0-2 /hpf (0-2) 11/12/24 11:37 Urine WBC 0-5 /hpf (0-5) 11/12/24 11:37 Ur Squamous Epith Cells 0-5 /hpf (0-5) 11/12/24 11:37 Amorphous Sediment Not Reportable 11/12/24 11:37 Urine Bacteria None seen /hpf (NONE) 11/12/24 11:37 Hyaline Casts 0-4 /lpf H 11/12/24 11:37 Influenza A (PCR) Negative (Negative) 11/12/24 11:37 Influenza Type B (PCR) Negative (Negative) 11/12/24 11:37 RSV (PCR) Negative (Negative) 11/12/24 11:37 SARS-CoV-2 (PCR) Negative (Negative) 11/12/24 11:37 All radiology interpretation(s) finalized by discharge Discharge Plan Discharge Patient Disposition: Placed in Observation Clinical Impression: Syncope, Elevated lactic acid level, Elevated troponin, Edema, Chronic cough Coding Level of Care Code ED 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
[2024-11-12 11:46] LABS: Glucose Urine UA 2+ (Normal); Nitrate Urine Negative (Negative); Specific Gravity, Urine 1.005 (1.005-1.030)
[2024-11-12 11:50] LABS: Hematocrit 43.9 % (37-53); Hemoglobin 15.60 g/dL (11.27-16.99); Mean Corpuscular HGB Conc 35.5 g/dL (30-55); Mean Corpuscular Hemoglobin 33.8 pg (27-33); Mean Corpuscular Volume 95.0 fl (82-101); Nucleated Red Blood Cells % 0 %; Platelet Count 357 10^3/cmm (157-399); Red Blood Count 4.62 10^6/uL (3.85-5.65); White Blood Count 8.23 10^3/uL (3.29-11.43)
[2024-11-12 12:03] LABS: Troponin(5th) Baseline 25 ng/L (0-15)
[2024-11-12 12:08] LABS: Lactic Sepsis W/Reflex 4.2 mmol/L (0.5-2.2)
[2024-11-12 12:19] LABS: Alanine Aminotransferase 28 U/L (0-41); Albumin Level 4.5 g/dL (3.5-5.2); Alkaline Phosphatase 100 U/L (40-130); Anion Gap 21.0 (5-19); Aspartate Amino Transferase 27 U/L (0-40); Blood Urea Nitrogen 7 mg/dL (6-20); Calcium 9.5 mg/dL (8.5-10.5); Carbon Dioxide 24 mmol/L (22-29); Chloride 94 mmol/L (98-107); Creatinine Clr Calc Pharmacy 163.7761; Globulin 3.3 g/dL (1.3-4.6); Glucose 310 mg/dL (65-115); NT Pro B Type Natriuretic Pept 44 pg/mL (0-125); Osmolality Calculated 290 mOsm/kg (285-295); Potassium 4.0 mmol/L (3.5-5.1); Sodium 135 mmol/L (136-145); Total Protein 7.8 g/dL (6.6-8.7)
[2024-11-12 12:25] LABS: Respiratory Syncytial Virus Ce NEGATIVE (Negative); SARS-CoV-2 PCR NEGATIVE (Negative)
--- NOTE | 2024-11-12 12:25 | CTR_ITS ---
PROCEDURE INFORMATION: Exam: CTA Chest With Contrast Exam date and time: 11/12/2024 12:35 PM Age: 54 years old Clinical indication: Abdominal pain; Generalized; Chest pressure; Additional info: Chest pain TECHNIQUE: Imaging protocol: Computed tomographic angiography of the chest with contrast. Exam focused on the arteries. 3D rendering (Not supervised by radiologist): MIP and/or 3D reconstructed images were created by the technologist. Radiation optimization: All CT scans at this facility use at least one of these dose optimization techniques: automated exposure control; mA and/or kV adjustment per patient size (includes targeted exams where dose is matched to clinical indication); or iterative reconstruction. Contrast material: OMNIPAQUE 350; Contrast volume: 100 ml; Contrast route: INTRAVENOUS (IV); COMPARISON: CT lung screening [id number] 12/21/2023 9:07 AM RADIATION DOSE METRICS: Total DLP (mGy-cm): 1797.59 FINDINGS: Pulmonary arteries: Normal. No pulmonary emboli. Aorta: Unremarkable. No aortic aneurysm. No aortic dissection. Lungs: Unremarkable. No consolidation. No masses. Pleural spaces: Unremarkable. No pneumothorax. No pleural effusion. Heart: Unremarkable. No cardiomegaly. No pericardial effusion. Lymph nodes: Unremarkable. No enlarged lymph nodes. Bones/joints: Unremarkable. No acute fracture. Soft tissues: Unremarkable. PROCEDURE INFORMATION: Exam: CT Abdomen And Pelvis With Contrast Exam date and time: 11/12/2024 12:35 PM Age: 54 years old Clinical indication: Abdominal pain; Generalized; Chest pressure; Additional info: Chest pain TECHNIQUE: Imaging protocol: Computed tomography of the abdomen and pelvis with contrast. Radiation optimization: All CT scans at this facility use at least one of these dose optimization techniques: automated exposure control; mA and/or kV adjustment per patient size (includes targeted exams where dose is matched to clinical indication); or iterative reconstruction. Contrast material: OMNIPAQUE 350; Contrast volume: 100 ml; Contrast route: INTRAVENOUS (IV); COMPARISON: CT lung screening [id number] 12/21/2023 9:07 AM RADIATION DOSE METRICS: Total DLP (mGy-cm): 1797.59 FINDINGS: Lungs: Lung bases are clear. No pleural effusion. Liver: Normal. No mass. Gallbladder and biliary ducts: Normal. No calcified stones. No ductal dilation. Pancreas: Normal. No ductal dilation. Spleen: Normal. No splenomegaly. Adrenal glands: Normal. No mass. Kidneys and ureters: Normal. No hydronephrosis. Stomach and bowel: Unremarkable. No obstruction. No mucosal thickening. Appendix: No evidence of appendicitis. Intraperitoneal space: Unremarkable. No free air. No significant fluid collection. Vasculature: Unremarkable. No abdominal aortic aneurysm. Lymph nodes: Unremarkable. No enlarged lymph nodes. Urinary bladder: Unremarkable as visualized. Reproductive: Prostate gland enlargement is noted along with chronic bladder wall thickening. Bones/joints: Unremarkable. No acute fracture. Soft tissues: Unremarkable. CT/CT angio chest w abd pel w con IMPRESSION: No acute findings. IMPRESSION: 1. No acute findings. 2. Prostate enlargement with chronic bladder wall changes
[2024-11-12 12:31] LABS: Reflex Lactate Order REFLEX LACTIC ORDERD
[2024-11-12] MEDS: iohexol 350 mg/mL 500 mL Btl (per mL) IV (12:40)
[2024-11-12 13:45] LABS: Troponin 5 2HR 19.26 ng/L (0-15)
[2024-11-12 13:48] LABS: Lactic Acid level (Lactate) 1.6 mmol/L (0.5-2.2)
[2024-11-12 13:51] LABS: Troponin 5 2HR Delta -5.74 ABS# (0-10)
--- NOTE | 2024-11-12 14:03 | ECG_ITS ---
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
[2024-11-12] MEDS: morphine 4 mg/mL SDV 1 mL 2 MG IVP ×3 (14:26→23:19)
--- NOTE | 2024-11-12 14:42 | PC.NURSE ---
provided pt with sprite & turkey [employer].
--- NOTE | 2024-11-12 14:42 | PM.HP ---
Providers/Chief Complaint Primary Care Provider: Patricio Jj MD Chief Complaint: cough / loss of conciousness History of Present Illness Rohith Kelsey is a 54 year old male with a past medical history of hypertension, diastolic CHF, presents [facility] due to syncope, shortness of breath. Currently patient alert oriented x 3, following commands, he reports pain under his right rib, a spasm like pain, radiates anteriorly, no nausea, vomiting, no diarrhea, no constipation no bloody or black stools. In addition does report shortness of breath, with bilateral lower extremity edema for which she uses Lasix. Denies any chest pain, no palpitations. In addition he reports syncope, he has the syncopal episodes are associated with coughing spells, denies passing out when standing up, denies any facial droop, no slurring of his words, no focal weakness Review of Systems Const: Denies: fever(s) or chills Card: Denies: chest pain Resp: Reports: dyspnea Medications/Allergies Home Medications ?Medication ?Instructions ?Recorded ?Confirmed ?Last Taken ?Type amlodipine 10 mg tablet (Norvasc) 10 mg PO DAILY #30 tabs 06/04/22 11/12/24 11/12/24 08:00 Rx metformin 500 mg tablet 500 mg PO BID 06/25/22 11/12/24 11/12/24 08:00 History budesonide-formoterol HFA 160 1 inh inhalation DAILY 03/13/23 11/12/24 11/12/24 History mcg-4.5 mcg/actuation aerosol inhaler (Symbicort) gabapentin 300 mg capsule 300 mg PO TID 03/13/23 11/12/24 11/12/24 08:00 History celecoxib 200 mg capsule 200 mg PO DAILY 12/07/23 11/12/24 11/12/24 History fluticasone propionate 50 2 spray intranasal DAILY 12/07/23 11/12/24 Unknown History mcg/actuation nasal spray,suspension potassium chloride 20 mEq 20 meq PO DAILY 12/07/23 11/12/24 11/12/24 08:00 History tablet,extended release(part/cryst) tiotropium bromide 18 mcg capsule 1 cap inhalation DAILY 12/07/23 11/12/24 11/12/24 History with inhalation device (Spiriva with HandiHaler) hydrocodone 7.5 mg-acetaminophen 1 tab PO Q6H 04/16/24 11/12/24 11/11/24 History 325 mg tablet trazodone 50 mg tablet 50 mg PO BEDTIME 04/16/24 11/12/24 11/11/24 21:00 History venlafaxine 150 mg 150 mg PO DAILY 04/16/24 11/12/24 11/12/24 09:00 History capsule,extended release 24 hr venlafaxine 75 mg capsule,extended 75 mg PO DAILY 04/16/24 11/12/24 11/12/24 09:00 History release 24 hr baclofen 20 mg tablet 20 mg PO TID PRN Muscle Spasm 08/30/24 11/12/24 11/12/24 08:00 History furosemide 40 mg tablet 40 mg PO DAILY 11/12/24 11/12/24 11/12/24 08:00 History furosemide 80 mg tablet 80 mg PO DAILY 11/12/24 11/12/24 11/12/24 08:00 History nicotine 21 mg/24 hr daily See Rx Instructions .Route .COMPLEX 11/12/24 11/12/24 11/10/24 History transdermal patch Allergies Allergy/AdvReac Type Severity Reaction Status Date / Time aspirin Allergy ALGY-Hives Verified 08/30/24 10:46 PFSH Acute PFSH: Medical History Hypertension Family History Other Cancer Diabetes Social History Smoking and tobacco/nicotine status: current every day tobacco/nicotine user cigarettes Packs smoked per day: 1 Alcohol intake: current Alcohol intake frequency: 3 or more drinks per day Alcohol type: beer Vitals/I&O/Wt Last Vital Signs Temp 97.5 F L 11/12/24 11:19 Pulse 82 11/12/24 14:42 Resp 16 11/12/24 14:42 BP 132/92 11/12/24 14:02 Pulse Ox 95 11/12/24 14:42 O2 Del Method Room Air 11/12/24 12:18 Weight last 48 hrs Weight 122.924 kg Physical Exam Const: COMMON NORMALS: no acute distress and patient oriented x3 Eye: COMMON NORMALS: Equal, round and reactive pupils present and EOMs intact bilaterally Resp: COMMON NORMALS: normal respiratory effort, No retractions, No use of accessory muscles and clear to auscultation bilaterally AUSCULTATION: clear to auscultation bilaterally Cardio: COMMON NORMALS: no JVD, regular rate, regular rhythm, S1 normal heart sound present and S2 normal heart sound present RATE: regular rate RHYTHM: regular rhythm HEART SOUNDS: S1 normal heart sound present and S2 normal heart sound present GI: COMMON NORMALS: Normal to inspection, nondistended, normoactive bowel sounds present, Soft to palpation and non-tender Extremity: NARRATIVE EXTREMITY EXAM: 3+ pitting edema Neuro: COMMON NORMALS: patient oriented x3, CN's II-XII intact bilaterally and moves all extremities Psych: COMMON NORMALS: mental status grossly normal Data 11/12/24 11:37 11/12/24 11:37 Micro: Microbiology 11/12/24 11:41 Blood Culture - Preliminary Blood SPECIMEN COLLECTED 11/12/24 11:37 Blood Culture - Preliminary Blood SPECIMEN COLLECTED A&P Assessment and plan 1. Right flank pain: 2. Diastolic CHF: 3. Syncope: 4. Type 2 diabetes mellitus: Plan: Right sided flank pain - Etiology unclear - could be muscle spasm - CT abdomen's, CT chest no acute findings -Will do ultrasound of the liver- -continue baclofen -Continue morphine diastolic CHF exacerbation -Cardiac echo - Fluid restrictions of 1000 cc - Monitor urine output, creatinine - Will place on Lasix 40 IV twice daily Syncope - Will monitor closely - Carotid artery ultrasound - Cardiac echo Type 2 diabetes mellitus, low-dose sliding scale full code Does report history of alcoholism, CIWA protocol Does report smoking, smoking cessation counseling Full code Lovenox for 70 prophylaxis PDMP PDMP Reviewed: Not Reviewed Attestations Medical Necessity Statement*: Patient requires hospitalization, inpatient, greater than 2 midnights, for diastolic CHF, right-sided flank pain, syncope Diagnoses Right flank pain R10.9 Diastolic CHF I50.30 Syncope R55 Type 2 diabetes mellitus E11.9
[2024-11-12 15:00] LABS: Lipase 29 U/L (13-60)
[2024-11-12 15:06] LABS: Procalcitonin 0.06 ng/mL (0-0.5)
[2024-11-12 16:16] LABS: Estmated Average Glucose 148; Hemoglobin A1C 6.8 % (4.0-6.0)
[2024-11-12 16:25] LABS: Alcohol Level 15 mg/dL (0-10); Cholesterol 172 mg/dL (0-200); HDL Cholesterol 42 mg/dL (60-100); Thyroid Stimulating Hormone 1.99 uIU/mL (0.27-4.20); Triglycerides 204 mg/dL (0-150)
--- NOTE | 2024-11-12 16:30 | PC.NURSE ---
Provider is updated that patient is asking for a nicotine patch. Provider ordered a nicotine 21mg patch daily. Order entered.
--- NOTE | 2024-11-12 17:11 | ECG_ITS ---
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
[2024-11-12] MEDS: thiamine 100 mg/mL 2mL SDV IM (17:19)
[2024-11-12] MEDS: FUROsemide 10 mg/mL SDV 4mL 40 MG IVP (17:20)
[2024-11-12 18:02] LABS: Troponin 5 6HR 16.23 ng/L (0-15)
[2024-11-12 18:08] LABS: Troponin 5 6HR Delta -8.77 ng/L (0-12)
[2024-11-12 18:23] LABS: PCP Screen Urine Negative (Negative)
[2024-11-13] VITALS (9 sets, daily range): BP systolic 132–161; BP diastolic 94–104; PULSE 81–96; RESP 15–21; TEMP 36.4–36.7; O2SAT 92–99
[2024-11-13] MEDS: FUROsemide 10 mg/mL SDV 4mL 40 MG IVP ×2 (03:40→15:54)
[2024-11-13] MEDS: morphine 4 mg/mL SDV 1 mL 2 MG IVP ×4 (03:48→21:47)
[2024-11-13 03:50] LABS: Hematocrit 39.9 % (37-53); Hemoglobin 14.00 g/dL (11.27-16.99); Mean Corpuscular HGB Conc 35.1 g/dL (30-55); Mean Corpuscular Hemoglobin 33.8 pg (27-33); Mean Corpuscular Volume 96.4 fl (82-101); Nucleated Red Blood Cells % 0 %; Platelet Count 308 10^3/cmm (157-399); Red Blood Count 4.14 10^6/uL (3.85-5.65); White Blood Count 7.68 10^3/uL (3.29-11.43)
[2024-11-13 04:18] LABS: Alanine Aminotransferase 22 U/L (0-41); Albumin Level 3.9 g/dL (3.5-5.2); Alkaline Phosphatase 83 U/L (40-130); Anion Gap 12.9 (5-19); Aspartate Amino Transferase 18 U/L (0-40); Blood Urea Nitrogen 11 mg/dL (6-20); Calcium 9.3 mg/dL (8.5-10.5); Carbon Dioxide 29 mmol/L (22-29); Chloride 100 mmol/L (98-107); Creatinine Clr Calc Pharmacy 136.0223; Globulin 2.7 g/dL (1.3-4.6); Glucose 185 mg/dL (65-115); Osmolality Calculated 290 mOsm/kg (285-295); Potassium 3.9 mmol/L (3.5-5.1); Sodium 138 mmol/L (136-145); Total Protein 6.6 g/dL (6.6-8.7)
[2024-11-13 04:38] LABS: NT Pro B Type Natriuretic Pept < 36 pg/mL (0-125)
[2024-11-13] MEDS: venlafaxine ER (24HR) 75 mg Capsule PO (08:37)
[2024-11-13] MEDS: multivitamin therapeutic Tablet 1 TAB PO (08:38)
[2024-11-13] MEDS: venlafaxine ER (24HR) 150 mg Capsule PO (08:38)
--- NOTE | 2024-11-13 12:48 | P.PN_ITS ---
Subjective 2 Subjective: Patient was seen this morning, currently alert oriented x 3, following all commands, his edema is improving, does report shortness of breath, no lightheadedness, no dizziness, no syncopal episodes, no chest pain Vitals/I&O/Wt Last Vital Signs Temp 97.9 F 11/13/24 08:00 Pulse 90 11/13/24 12:00 Resp 15 11/13/24 12:00 BP 135/99 11/13/24 12:00 Pulse Ox 99 11/13/24 12:00 O2 Del Method Room Air 11/13/24 00:00 11/12/24 11/13/24 11/13/24 22:59 06:59 14:59 Intake Total 240 / 240 480 / 720 360 / 360 Output Total 1225 / 1225 1525 / 2750 960 / 960 Balance -985 / -985 -1045 / -2030 -600 / -600 Weight last 48 hrs Weight 81.783 kg Weight 83.007 kg Weight 122.924 kg Physical Exam 2 Const: COMMON NORMALS: no acute distress and patient oriented x3 Resp: COMMON NORMALS: normal respiratory effort, No retractions and No use of accessory muscles AUSCULTATION: crackles and wheezes Cardio: COMMON NORMALS: regular rate, regular rhythm, S1 normal heart sound present and S2 normal heart sound present RATE: regular rate RHYTHM: r egular rhythm HEART SOUNDS: S1 normal heart sound present and S2 normal heart sound present GI: COMMON NORMALS: Normal to inspection, nondistended, normoactive bowel sounds present and non-tender Extremity: NARRATIVE EXTREMITY EXAM: 2+ pitting edema Neuro: COMMON NORMALS: patient oriented x3 Psych: COMMON NORMALS: mental status grossly normal Data 11/13/24 03:35 11/13/24 03:35 Micro: Microbiology 11/12/24 11:37 Blood Culture - Preliminary Blood NEGATIVE TO DATE 11/12/24 11:41 Blood Culture - Preliminary Blood A&P Assessment and plan 1. Right flank pain: 2. Diastolic CHF: 3. Syncope: 4. Type 2 diabetes mellitus: Plan: Right sided flank pain - Likely secondary to muscle spasm - CT abdomen's, CT chest no acute findings -Will do ultrasound of the liver, no acute findings -continue baclofen -Continue morphine diastolic CHF exacerbation -Cardiac echo - Fluid restrictions of 1000 cc - Monitor urine output, creatinine - Continue Lasix 40 IV twice daily Syncope - Will monitor closely - Carotid artery ultrasound - Cardiac echo Type 2 diabetes mellitus, low-dose sliding scale full code Does report history of alcoholism, CIWA protocol Does report smoking, smoking cessation counseling Full code Lovenox for 70 prophylaxis PDMP PDMP Reviewed: Not Reviewed Attestations 2 Medical Necessity Statement*: Patient requires hospitalization for diastolic CHF, requiring IV diuresis Diagnoses Right flank pain R10.9 Diastolic CHF I50.30 Syncope R55 Type 2 diabetes mellitus E11.9
--- NOTE | 2024-11-13 14:38 | USR_ITS ---
PROCEDURE INFORMATION: Exam: US Duplex Bilateral Extracranial Arteries; Complete; Carotid Arteries Exam date and time: 11/13/2024 6:30 AM Age: 54 years old Clinical indication: Syncope and collapse TECHNIQUE: Imaging protocol: Real-time duplex ultrasound scan of the bilateral extracranial arteries combining bryant scale, color Doppler and spectral waveform analysis with image documentation. Complete exam. Exam focused on the carotid arteries. COMPARISON: CT head wo con* [id number] 04/16/2024 12:26 PM FINDINGS: Right common carotid artery: Unremarkable. No occlusion or stenosis. Waveforms are normal. Right internal carotid artery: Unremarkable. No occlusion or stenosis. Waveforms are normal. Right ICA/CCA ratio: Within normal limits. Right external carotid artery: No stenosis in the origin. Right vertebral artery: Unremarkable. Antegrade flow. Left common carotid artery: Unremarkable. No occlusion or stenosis. Waveforms are normal. Left internal carotid artery: Unremarkable. No occlusion or stenosis. Waveforms are normal. Left ICA/CCA ratio: Within normal limits. Left external carotid artery: No stenosis in the origin. Left vertebral artery: Unremarkable. Antegrade flow. US/CV carotid duplex BI* [id number] IMPRESSION: No carotid arterial stenosis. REFERENCES: SRU CRITERIA. The degree of internal carotid artery stenosis is based on criteria defined by the Society of Radiologists in Ultrasound (SRU). Normal is no stenosis. Mild is less than 50% stenosis. Moderate is 50-69% stenosis. Severe is greater than 69% stenosis to near occlusion. Near occlusion is a markedly narrowed lumen. Total occlusion is no detectable patent lumen. Valery Cain, et al. Carotid Artery Stenosis: Bryant-Scale and Doppler US Diagnosis-Society of Radiologists in Ultrasound Consensus Conference. Radiology 2003; 229:340-346.
--- NOTE | 2024-11-13 14:38 | USR_ITS ---
PROCEDURE INFORMATION: Exam: US Abdomen, Limited; Right Upper Quadrant Exam date and time: 11/13/2024 6:52 AM Age: 54 years old Clinical indication: Abdominal pain; Localized; Right upper quadrant (ruq); Additional info: Evulate ruq pain, check for portal jaquelin thrombus TECHNIQUE: Imaging protocol: Real time ultrasound of the abdomen with image documentation. Limited exam focused on the right upper quadrant. COMPARISON: [place] liver [id number] 05/28/2022 8:35 AM FINDINGS: Liver: Increased liver echogenicity, suggestive of steatosis. Liver length of 22 cm. No focal hepatic lesions identified sonographically. Gallbladder: Multiple small gallstones. No gallbladder wall thickening or pericholecystic fluid demonstrated. Sonographic Rogel sign was not assessed. Biliary ducts: Common bile duct measures 6 mm in diameter, upper limits of normal. No intrahepatic biliary ductal dilatation seen. Pancreas: Pancreas not well visualized due to bowel gas. Right kidney: No contour deforming masses, visible stones, or hydronephrosis Aorta: Visualized proximal abdominal aorta is nonaneurysmal. Inferior vena cava: Visualized IVC appears unremarkable. Portal venous: The portal vein is patent with hepatopetal flow. US/US liver [id number] IMPRESSION: 1. Cholelithiasis. Common bile duct measures 6 mm in diameter, which is at the upper limit of normal without intrahepatic ductal dilatation, correlate for any laboratory evidence of biliary stasis. 2. Enlarged fatty liver.
--- NOTE | 2024-11-13 14:38 | USCV_ITS ---
Rohith Kelsey Age: 54 Gender: M : 1970 Exam Date: 11/13/2024 07:43 Ordering Phys: Kevyn Mcclain MD Technologist: Dinh Caraballo Exam Location: [facility] [place] Indication: syncope BP: 132 / 104 HR: 75 Rhythm: Sinus Technical Quality: Suboptimal MEASUREMENTS (Male / Female) Normal Values 2D ECHO LVOT Diameter 1.5 cm LV Ejection Fraction MOD 4C 58.4 % LV Ejection Fraction MOD 2C 59.5 % LV Ejection Fraction 2C AL 59.8 % LA Diameter 3.8 cm RA Systolic Volume 4C AL 34.7 ml RA Systolic Volume 4C MOD 33.6 ml LA Sys Volume AL 37.0 cm cubed LA Sys Volume Index AL 18.0 cm cubed/m squared IVC Diameter 1.6 cm DOPPLER AV Peak Velocity 128.0 cm/s LVOT Peak Velocity 103.0 cm/s AV Area Cont Eq vti 1.5 cm squared AV Area Cont Eq pk 1.5 cm squared MV Peak Velocity 64.0 cm/s MV Area PHT 4.5 cm squared Mitral E to A Ratio 0.9 TR Peak Velocity 215.0 cm/s TR Peak Gradient 18.5 mmHg TR Mean Velocity 174.0 cm/s TR Mean Gradient 13.0 mmHg TR Velocity Time Integral 61.1 cm PV Peak Velocity 103.0 cm/s RV Ejection Time 0.2 s FINDINGS Left Ventricle Normal left ventricular cavity size. Mildly decreased left ventricular systolic function. Left ventricular ejection fraction is estimated at 50 %. No regional wall motion abnormalities. Grade I/IV diastolic dysfunction (abnormal relaxation filling pattern), normal to mildly elevated filling pressures. Right Ventricle The right ventricle is normal in size and function. Right Atrium The right atrium is normal in size. Left Atrium The left atrium is normal in size. Mitral Valve Structurally normal mitral valve without significant stenosis or prolapse. There is no mitral regurgitation. Aortic Valve Structurally normal aortic valve without significant sclerosis or stenosis. There is no aortic regurgitation. Tricuspid Valve Structurally normal tricuspid valve without significant stenosis or regurgitation. Pulmonary artery systolic pressure is normal. Pulmonic Valve Structurally normal pulmonic valve without significant stenosis. There is no pulmonic regurgitation. Pericardium Normal pericardium without effusion. Aorta Normal ascending aorta dimension. IVC The inferior vena cava appears normal. CONCLUSIONS Normal left ventricular cavity size. Mildly decreased left ventricular systolic function. Left ventricular ejection fraction is estimated at 50 %. No regional wall motion abnormalities. Grade I/IV diastolic dysfunction (abnormal relaxation filling pattern), normal to mildly elevated filling pressures. There is no pericardial effusion. No significant valve abnormalities. Right atrial pressure is around 5 mm of mercury. Jenn Adams MD (Electronically Signed) Final Date: 13 November 2024 11:56 S
--- NOTE | 2024-11-13 16:05 | PC.NURSE ---
removed Lidocaine patch pt stated he develop headache since application. pt is okay to remove the patch. PRN Tylenol given for headache.
[2024-11-14] VITALS (8 sets, daily range): BP systolic 136–154; BP diastolic 86–104; PULSE 77–96; RESP 14–18; TEMP 36.3–36.6; O2SAT 91–97
[2024-11-14] MEDS: FUROsemide 10 mg/mL SDV 4mL 40 MG IVP (03:57)
[2024-11-14 04:23] LABS: Hematocrit 38.6 % (37-53); Hemoglobin 13.40 g/dL (11.27-16.99); Mean Corpuscular HGB Conc 34.7 g/dL (30-55); Mean Corpuscular Hemoglobin 33.8 pg (27-33); Mean Corpuscular Volume 97.5 fl (82-101); Nucleated Red Blood Cells % 0 %; Platelet Count 306 10^3/cmm (157-399); Red Blood Count 3.96 10^6/uL (3.85-5.65); White Blood Count 7.69 10^3/uL (3.29-11.43)
[2024-11-14 04:58] LABS: Alanine Aminotransferase 21 U/L (0-41); Albumin Level 3.7 g/dL (3.5-5.2); Alkaline Phosphatase 85 U/L (40-130); Anion Gap 13.5 (5-19); Aspartate Amino Transferase 17 U/L (0-40); Blood Urea Nitrogen 12 mg/dL (6-20); Calcium 9.0 mg/dL (8.5-10.5); Carbon Dioxide 29 mmol/L (22-29); Chloride 100 mmol/L (98-107); Creatinine Clr Calc Pharmacy 119.0195; Globulin 3.1 g/dL (1.3-4.6); Glucose 217 mg/dL (65-115); Osmolality Calculated 294 mOsm/kg (285-295); Potassium 3.5 mmol/L (3.5-5.1); Sodium 139 mmol/L (136-145); Total Protein 6.8 g/dL (6.6-8.7)
[2024-11-14] MEDS: venlafaxine ER (24HR) 150 mg Capsule PO (08:26)
[2024-11-14] MEDS: venlafaxine ER (24HR) 75 mg Capsule PO (08:26)
[2024-11-14] MEDS: multivitamin therapeutic Tablet 1 TAB PO (08:27)
--- NOTE | 2024-11-14 09:52 | PC.CHAP ---
Pastoral Care Encounter/Spiritual Assessment Type of Contact [] Declined staff nurse visit [] Patient/Family/Request visit [] Outpatient visit [] Follow-up visit [] Physician referral [] Code/Alert [x] Routine visit [] Staff referral [] Actively dying [] Patient sleeping [] Family support [] [] Out of room [] Palliative care [] [] Receiving care in room [] Pre-surgical visit [] Trauma [] Long length of stay [] ICU visit [] Other: Relational/Emotional Strength [] Patient feels connected with others/family/visitors/staff [] Distress [] Loneliness/isolation [] Abandonment Spirituality of Patient [x] Person of Chloe [] Attends Jainism of their Chloe [x] Believes in Prayer [] Reads Bible or Moravian materials [] There are Spiritual issues 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 addressed 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 Vertical Interventions [x] Prayer [x] Active listening [] Non-anxious presence [] Spiritual/emotional support [] Crisis/trauma care [] Spiritual counseling [] Bereavement support [] Provided bereavement packet [x] Provided Bible/devotional materials [] Provided toy/stuffed animal, coloring book to patient or family member [] Provided Communion [] Anointing/[place] [] Salvation [x] Completed spiritual assessment [] Other: Impact on Illness or Injury [] Angry [] Fearful [] Anxious [] Often cries [] Exhaustion [] Unable to work [] Unable to attend denominational [] Unable to walk/stand [] Unable to read [] Unable to drive [] Unable to eat/drink [] Unable to sleep [] Unable to be with family [] Patient intubated [] Other: Summary Time spent with patient 5 min
[2024-11-14] MEDS: morphine 4 mg/mL SDV 1 mL 2 MG IVP (12:38)
--- NOTE | 2024-11-14 14:22 | PM.CONSULT ---
Providers/Reason For Consult Consulting Physician/Specialty*: Dr Christi Adams, interventional cardiology Reason for Consult*: syncope, new onset LV dysfunction Requesting Physician: Dr Mcclain Attending Physician: Kevyn Mcclain MD Primary Care Provider: Patricio Jj MD History of Present Illness History of Present Illness Rohith Kelsey is a 54 year old male Medications/Allergies Home Medications ?Medication ?Instructions ?Recorded ?Confirmed ?Last Taken ?Type amlodipine 10 mg tablet (Norvasc) 10 mg PO DAILY #30 tabs 06/04/22 11/12/24 11/12/24 08:00 Rx metformin 500 mg tablet 500 mg PO BID 06/25/22 11/12/24 11/12/24 08:00 History budesonide-formoterol HFA 160 1 inh inhalation DAILY 03/13/23 11/12/24 11/12/24 History mcg-4.5 mcg/actuation aerosol inhaler (Symbicort) gabapentin 300 mg capsule 300 mg PO TID 03/13/23 11/12/24 11/12/24 08:00 History celecoxib 200 mg capsule 200 mg PO DAILY 12/07/23 11/12/24 11/12/24 History fluticasone propionate 50 2 spray intranasal DAILY 12/07/23 11/12/24 Unknown History mcg/actuation nasal spray,suspension potassium chloride 20 mEq 20 meq PO DAILY 12/07/23 11/12/24 11/12/24 08:00 History tablet,extended release(part/cryst) tiotropium bromide 18 mcg capsule 1 cap inhalation DAILY 12/07/23 11/12/24 11/12/24 History with inhalation device (Spiriva with HandiHaler) hydrocodone 7.5 mg-acetaminophen 1 tab PO Q6H 04/16/24 11/12/24 11/11/24 History 325 mg tablet trazodone 50 mg tablet 50 mg PO BEDTIME 04/16/24 11/12/24 11/11/24 21:00 History venlafaxine 150 mg 150 mg PO DAILY 04/16/24 11/12/24 11/12/24 09:00 History capsule,extended release 24 hr venlafaxine 75 mg capsule,extended 75 mg PO DAILY 04/16/24 11/12/24 11/12/24 09:00 History release 24 hr baclofen 20 mg tablet 20 mg PO TID PRN Muscle Spasm 08/30/24 11/12/24 11/12/24 08:00 History furosemide 40 mg tablet 40 mg PO DAILY 11/12/24 11/12/24 11/12/24 08:00 History furosemide 80 mg tablet 80 mg PO DAILY 11/12/24 11/12/24 11/12/24 08:00 History nicotine 21 mg/24 hr daily See Rx Instructions .Route .COMPLEX 11/12/24 11/12/24 11/10/24 History transdermal patch Allergies Allergy/AdvReac Type Severity Reaction Status Date / Time aspirin Allergy ALGY-Hives Verified 08/30/24 10:46 Current Medications Generic Name Dose Route Start Last Admin Trade Name Freq PRN Reason Stop Dose Admin Acetaminophen 650 mg 11/12/24 15:48 11/13/24 15:54 Acetaminophen 325 Mg Tablet PO 650 mg Q6H PRN Administration Mild/Mod Pain Or Temp >/= 101 Albuterol/Ipratropium 3 ml 11/12/24 23:05 11/14/24 13:16 Ipratropium-Albuterol 3 Ml Neb INHALATION 3 ml Q6H PRN Administration SHORTNESS OF BREATH Baclofen 20 mg 11/12/24 15:51 11/14/24 08:27 Baclofen 10 Mg Tablet PO 20 mg TID PRN Administration Muscle Spasm Enoxaparin Sodium 40 mg 11/12/24 18:00 11/13/24 17:48 Enoxaparin 40 Mg/0.4 Ml Syringe SUBCUT 40 mg Q24H GERMÁN Administration Folic Acid 1 mg 11/13/24 09:00 11/14/24 08:26 Folic Acid 1 Mg Tablet PO 1 mg DAILY GERMÁN Administration Furosemide 40 mg 11/12/24 15:48 11/14/24 03:57 Furosemide 10 Mg/Ml Sdv 4ml IVP 40 mg Q12H GERMÁN Administration Gabapentin 300 mg 11/12/24 15:48 11/14/24 08:27 Gabapentin 300 Mg Capsule PO 300 mg TID GERMÁN Administration Insulin Human Lispro 0 unit 11/12/24 18:00 11/14/24 12:38 Insulin Lispro 100 Unit/1 Ml SUBCUT 6 unit WM&BEDTIME GERMÁN Administration Protocol Lidocaine 1 patch 11/13/24 09:13 11/14/24 08:27 Lidocaine 5% Patch TOPICAL Not Given [id number] GERMÁN Morphine Sulfate 2 mg 11/12/24 15:48 11/14/24 12:38 Morphine 4 Mg/Ml Sdv 1 Ml IVP 2 mg Q4H PRN Administration SEVERE PAIN Multivitamins Therapeutic 1 tab 11/13/24 09:00 11/14/24 08:27 Multivitamin Therapeutic Tablet PO 1 tab DAILY GERMÁN Administration Nicotine 1 patch 11/12/24 17:00 11/14/24 08:29 Nicotine 21 Mg Patch TRANSDERMA Not Given DAILY GERMÁN Pantoprazole Sodium 40 mg 11/13/24 09:00 11/14/24 08:[address] 40 Mg Tablet PO 40 mg DAILY GERMÁN Administration Thiamine Mononitrate 100 mg 11/13/24 09:00 11/14/24 08:26 Thiamine 100 Mg Tablet PO 100 mg DAILY GERMÁN Administration Trazodone HCl 50 mg 11/12/24 21:00 11/13/24 21:43 Trazodone 50 Mg Tablet PO 50 mg BEDTIME GERMÁN Administration Venlafaxine HCl 75 mg 11/13/24 09:00 11/14/24 08:26 Venlafaxine Er (24hr) 75 Mg Capsule PO 75 mg DAILY GERMÁN Administration Venlafaxine HCl 150 mg 11/13/24 09:00 11/14/24 08:26 Venlafaxine Er (24hr) 150 Mg Capsule PO 150 mg DAILY GERMÁN Administration PFSH Acute PFSH: Medical History (Updated 11/12/24 @ 14:46 by Kevyn Mcclain MD) Hypertension Family History Other Cancer Diabetes Social History Smoking and tobacco/nicotine status: current every day tobacco/nicotine user cigarettes Packs smoked per day: 1 Alcohol intake: current Alcohol intake frequency: 3 or more drinks per day Alcohol type: beer Vitals/I&O/Wt Last Vital Signs Temp 97.8 F 11/14/24 08:00 Pulse 96 11/14/24 13:19 Resp 18 11/14/24 13:19 BP 142/96 11/14/24 12:00 Pulse Ox 92 11/14/24 13:19 O2 Del Method Room Air 11/14/24 13:19 11/13/24 11/14/24 11/14/24 22:59 06:59 14:59 Intake Total 560 / 1280 840 / 840 Output Total 1100 / 4260 1900 / 4260 300 / 300 Balance -540 / -2980 -1900 / -2980 540 / 540 Weight last 48 hrs Weight 286 lb 14.4 oz Weight 180 lb 4.8 oz Weight 183 lb Data 11/14/24 02:46 11/14/24 02:46 Micro: Microbiology 11/12/24 11:41 Blood Culture - Preliminary Blood Bacillus sp not b. anthracis 11/12/24 11:37 Blood Culture - Preliminary Blood NEGATIVE TO DATE A&P PDMP PDMP Reviewed: Not Reviewed Coding Level of Care Code Acute Code for Chg Fwd
--- NOTE | 2024-11-14 14:27 | P.DS_ITS ---
Discharge Providers Date of Admission: 11/12/24 15:37 Date of Discharge: November 14, 2024 Attending Provider at Admission: Kevyn Mcclain MD Attending Provider at Discharge: Kevyn Mcclain MD Primary Care Provider: Patricio Jj MD Diagnoses at Discharge Discharge Diagnosis 1. Right flank pain: 2. Diastolic CHF: 3. Syncope: 4. Type 2 diabetes mellitus: Reason for Visit Reason for Visit: cough / loss of conciousness Hospital Course Hospital Course Rohith Kelsey is a 54 year old male with a past medical history of hypertension, diastolic CHF, presents [facility] due to syncope, shortness of breath. Currently patient alert oriented x 3, following commands, he reports pain under his right rib, a spasm like pain, radiates anteriorly, no nausea, vomiting, no diarrhea, no constipation no bloody or black stools. In addition does report shortness of breath, with bilateral lower extremity edema for which she uses Lasix. Denies any chest pain, no palpitations. In addition he reports syncope, he has the syncopal episodes are associated with coughing spells, denies passing out when standing up, denies any facial droop, no slurring of his words, no focal weakness Patient was admitted to [facility] for right-sided flank pain - Likely secondary to muscle spasm - CT chest abdomen pelvis no acute findings - Liver ultrasound no acute findings -UA no UTI - Muscle spasms have improved with baclofen, and morphine - Discharged with close outpatient follow-up with primary care Patient was admitted to [facility] for fluid overload, bilateral extremity edema, systolic and diastolic CHF exacerbation - Patient was diuresed over 4.4 L net negative - Will be discharged on fourth Lasix 40 twice daily with potassium placement therapy - Follow-up with primary care provider Patient's echocardiogram shows Normal left ventricular cavity size. Mildly decreased left ventricular systolic function. Left ventricular ejection fraction is estimated at 50 %. No regional wall motion abnormalities. Grade I/IV diastolic dysfunction (abnormal relaxation filling pattern), normal to mildly elevated filling pressures. There is no pericardial effusion. No significant valve abnormalities. Right atrial pressure is around 5 mm of mercury. - Denies any chest pain - 6-hour troponin 16.23 - Plan on 11/14/2024 was to consult cardiology, consideration of stress testing versus angiogram - However patient wanted to leave AGAINST MEDICAL ADVICE - Recommended for him to stay as inpatient for further inpatient monitoring, workup such as stress testing versus an angiogram, cardiology evaluation - However patient wants to leave the hospital - Discussed morbidity and mortality associated with CAD, his echocardiogram findings, recommended further workup and inpatient evaluation, he voiced understanding understanding, all questions answered, declined to stay in the hospital - Will discharge home with close follow-up with cardiology - Patient was advised if he were to have any chest pain or worsening shortness of breath to go to emergency room - Patient has an aspirin allergy - Patient was discharged on statin - Discharge with event monitor placed For patient's reported syncopal episode - No recurrent episodes as inpatient - Echocardiogram findings as above - Carotid artery ultrasound, no carotid artery stenosis - Patient declined further inpatient evaluation, as above - Will discharge with event monitor in place - Patient was advised if he were to have any recurrent syncopal symptoms to go to the emergency room Physical Exam Const: COMMON NORMALS: no acute distress and patient oriented x3 Resp: COMMON NORMALS: normal respiratory effort, No retractions, No use of accessory muscles and clear to auscultation bilaterally AUSCULTATION: clear to auscultation bilaterally Cardio: COMMON NORMALS: regular rate, regular rhythm, S1 normal heart sound present and S2 normal heart sound present RATE: regular rate RHYTHM: regular rhythm HEART SOUNDS: S1 normal heart sound present and S2 normal heart sound present GI: COMMON NORMALS: Normal to inspection, nondistended, normoactive bowel sounds present and non-tender Extremity: COMMON NORMALS: no calf tenderness and no pedal edema Neuro: COMMON NORMALS: patient oriented x3 Psych: COMMON NORMALS: mental status grossly normal Discharge Data Studies Completed and Pending Completed Studies During Hospitalization Category Date Time Status CT Angio Chest + Abdomen Pelvis w/ contrast; 16228 + Cat Scan 11/12/24 12:25 Completed 07005 Stat XR chest 1V portable [id number] Stat Exams 11/12/24 11:27 Completed CV carotid duplex BI* [id number] Stat Ultrasound 11/13/24 14:38 Completed CV. echo complete* [id number] Stat Ultrasound 11/13/24 14:38 Completed US liver 16497 Stat Ultrasound 11/13/24 14:38 Completed Pending at discharge Category Date Time Status Blood Culture Stat Lab 11/12/24 11:41 Results Complete Blood Count w/Auto AM LABS Lab 11/15/24 04:00 Ordered Comprehensive Metabolic Panel AM LABS Lab 11/15/24 04:00 Ordered Radiology Impressions Chest X-Ray 11/12/24 11:27 IMPRESSION: No acute findings. Chest/Abdomen/Pelvis CT 11/12/24 12:25 IMPRESSION: No acute findings. IMPRESSION: 1. No acute findings. 2. Prostate enlargement with chronic bladder wall changes Carotid Doppler Study 11/13/24 14:38 IMPRESSION: No carotid arterial stenosis. REFERENCES: SRU CRITERIA. The degree of internal carotid artery stenosis is based on criteria defined by the Society of Radiologists in Ultrasound (SRU). Normal is no stenosis. Mild is less than 50% stenosis. Moderate is 50-69% stenosis. Severe is greater than 69% stenosis to near occlusion. Near occlusion is a markedly narrowed lumen. Total occlusion is no detectable patent lumen. Valery Cain et al. Carotid Artery Stenosis: Bryant-Scale and Doppler US Diagnosis-Society of Radiologists in Ultrasound Consensus Conference. Radiology 2003; 229:340-346. Liver Ultrasound 11/13/24 14:38 IMPRESSION: 1. Cholelithiasis. Common bile duct measures 6 mm in diameter, which is at the upper limit of normal without intrahepatic ductal dilatation, correlate for any laboratory evidence of biliary stasis. 2. Enlarged fatty liver. Laboratory Results WBC 7.69 10^3/uL (3.29-11.43) 11/14/24 02:46 RBC 3.96 10^6/uL (3.85-5.65) 11/14/24 02:46 Hgb 13.40 g/dL (11.27-16.99) 11/14/24 02:46 Hct 38.6 % (37-53) 11/14/24 02:46 MCV 97.5 fl (82-101) 11/14/24 02:46 MCH 33.8 pg (27-33) H 11/14/24 02:46 MCHC 34.7 g/dL (30-55) 11/14/24 02:46 RDW 11.6 % (12.1-15.1) L 11/14/24 02:46 Plt Count 306 10^3/cmm (157-399) 11/14/24 02:46 MPV 9.2 fL (7.4-10.4) 11/14/24 02:46 Neut % (Auto) 55.1 % 11/14/24 02:46 Lymph % (Auto) 30.2 % 11/14/24 02:46 [place] % (Auto) 8.7 % 11/14/24 02:46 Eos % (Auto) 4.7 % 11/14/24 02:46 Baso % (Auto) 0.9 % 11/14/24 02:46 Neut # (Auto) 4.24 10^3/uL (1.8-7.7) 11/14/24 02:46 Lymph # (Auto) 2.3 10^3/uL (0.8-4.8) 11/14/24 02:46 [place] # (Auto) 0.7 10^3/uL (0.2-0.9) 11/14/24 02:46 Eos # (Auto) 0.4 10^3/uL (0.0-0.8) 11/14/24 02:46 Baso # (Auto) 0.1 10^3/uL (0.0-0.1) 11/14/24 02:46 Nucleated RBC % (auto) 0 % 11/14/24 02:46 Nucleated RBCs # 0.0 /100WBC 11/14/24 02:46 Sodium 139 mmol/L (136-145) 11/14/24 02:46 Potassium 3.5 mmol/L (3.5-5.1) 11/14/24 02:46 Chloride 100 mmol/L (98-107) 11/14/24 02:46 Carbon Dioxide 29 mmol/L (22-29) 11/14/24 02:46 Anion Gap 13.5 (5-19) 11/14/24 02:46 BUN 12 mg/dL (6-20) 11/14/24 02:46 Creatinine 0.8 mg/dL (0.7-1.2) 11/14/24 02:46 GFR Calculation 100.4 mL/min (90-130) 11/14/24 02:46 Glucose 217 mg/dL (65-115) H 11/14/24 02:46 POC Glucose 216 mg/dL (70-110) H 11/14/24 11:18 Estimat Average Glucose 148 11/12/24 11:37 Hemoglobin A1c 6.8 % (4.0-6.0) H 11/12/24 11:37 Calculated Osmolality 294 mOsm/kg (285-295) 11/14/24 02:46 Lactic Acid 4.2 mmol/L (0.5-2.2) H* 11/12/24 11:37 Lactic Acid (Sepsis) 1.6 mmol/L (0.5-2.2) 11/12/24 13:21 Calcium 9.0 mg/dL (8.5-10.5) 11/14/24 02:46 Total Bilirubin 0.3 mg/dL (0.15-1.2) 11/14/24 02:46 GGT 62 U/L (8-61) H 11/12/24 11:37 AST 17 U/L (0-40) 11/14/24 02:46 ALT 21 U/L (0-41) 11/14/24 02:46 Alkaline Phosphatase 85 U/L (40-130) 11/14/24 02:46 Troponin T Baseline 25 ng/L (0-15) H 11/12/24 11:37 Troponin T 120 Minute 19.26 ng/L (0-15) H 11/12/24 13:21 Delta Troponin T -5.74 ABS# (0-10) L 11/12/24 13:21 Troponin T Hi Sens 6Hr 16.23 ng/L (0-15) H 11/12/24 17:22 Troponin T Hi Sens 6Hr Delta -8.77 ng/L (0-12) L 11/12/24 17:22 C-Reactive Protein 3.0 mg/L (0.0-4.9) 11/12/24 11:37 NT-Pro-B Natriuret Pep < 36 pg/mL (0-125) 11/13/24 03:35 Total Protein 6.8 g/dL (6.6-8.7) 11/14/24 02:46 Albumin 3.7 g/dL (3.5-5.2) 11/14/24 02:46 Globulin 3.1 g/dL (1.3-4.6) 11/14/24 02:46 Triglycerides 204 mg/dL (0-150) H 11/12/24 11:37 Cholesterol 172 mg/dL (0-200) 11/12/24 11:37 LDL Cholesterol, Calc 89 mg/dL (50-129) 11/12/24 11:37 HDL Cholesterol 42 mg/dL (60-100) L 11/12/24 11:37 LDL/HDL Ratio 2.12 RATIO (0.00-3.22) 11/12/24 11:37 Cholesterol/HDL Ratio 4.10 mg/dL (1.0-5.00) 11/12/24 11:37 Lipase 29 U/L (13-60) 11/12/24 11:37 Procalcitonin 0.06 ng/mL (0-0.5) 11/12/24 11:37 TSH 1.99 uIU/mL (0.27-4.20) 11/12/24 11:37 Urine Color Yellow (Yellow) 11/12/24 11:37 Urine Appearance Clear (CLEAR) 11/12/24 11:37 Urine pH 5.0 (5-7) 11/12/24 11:37 Ur Specific [place] 1.005 (1.005-1.030) 11/12/24 11:37 Urine Protein Negative (Negative) 11/12/24 11:37 Urine Glucose (UA) 2+ (Normal) H 11/12/24 11:37 Urine Ketones Negative (Negative) 11/12/24 11:37 Urine Blood Negative (Negative) 11/12/24 11:37 Urine Nitrate Negative (Negative) 11/12/24 11:37 Urine Bilirubin Negative (Negative) 11/12/24 11:37 Urine Urobilinogen 0.2 mg/dL (Negative) 11/12/24 11:37 Ur Leukocyte Esterase Negative (Negative) 11/12/24 11:37 Urine RBC 0-2 /hpf (0-2) 11/12/24 11:37 Urine WBC 0-5 /hpf (0-5) 11/12/24 11:37 Ur Squamous Epith Cells 0-5 /hpf (0-5) 11/12/24 11:37 Amorphous Sediment Not Reportable 11/12/24 11:37 Urine Bacteria None seen /hpf (NONE) 11/12/24 11:37 Hyaline Casts 0-4 /lpf H 11/12/24 11:37 Urine Opiates Screen Positive ng/mL (Negative) H 11/12/24 11:37 Ur Barbiturates Screen Negative ng/mL (Negative) 11/12/24 11:37 Ur Phencyclidine Scrn Negative ng/mL (Negative) 11/12/24 11:37 Ur Amphetamines Screen Negative ng/mL (Negative) 11/12/24 11:37 U Benzodiazepines Scrn Negative ng/mL (Negative) 11/12/24 11:37 Urine Cocaine Screen Negative ng/mL (Negative) 11/12/24 11:37 U Marijuana (THC) Screen Positive ng/mL (Negative) H 11/12/24 11:37 Ethyl Alcohol 15 mg/dL (0-10) H 11/12/24 11:37 Influenza A (PCR) Negative (Negative) 11/12/24 11:37 Influenza Type B (PCR) Negative (Negative) 11/12/24 11:37 RSV (PCR) Negative (Negative) 11/12/24 11:37 SARS-CoV-2 (PCR) Negative (Negative) 11/12/24 11:37 Vitals Last Vital Signs Temp 97.8 F 11/14/24 08:00 Pulse 96 11/14/24 13:19 Resp 18 11/14/24 13:19 BP 142/96 11/14/24 12:00 Pulse Ox 92 11/14/24 13:19 O2 Del Method Room Air 11/14/24 13:19 Discharge Plan Discharge Patient Disposition: Home Condition: Stable Prescriptions: New folic acid 1 mg Tablet 1 mg PO DAILY 30 Days Qty: 30 0RF ipratropium-albuterol 0.5 mg-3 mg(2.5 mg base)/3 mL solution for nebulization 3 ml inhalation Q6H PRN (Reason: shortness of breath or wheezing) Qty: 90 0RF atorvastatin [Lipitor] 20 mg tablet 20 mg PO DAILY 30 Days Qty: 30 0RF nitroglycerin 0.4 mg tablet, sublingual 0.4 mg sublingual Q5M 30 Days Qty: 30 0RF Rx Instructions: do not exceed 3 doses per episode Continued baclofen 20 mg tablet 20 mg PO TID PRN (Reason: Muscle Spasm) metformin 500 mg tablet 500 mg PO BID gabapentin 300 mg capsule 300 mg PO TID budesonide-formoterol [Symbicort] 160-4.5 mcg/actuation HFA aerosol inhaler 1 inh inhalation DAILY amlodipine [Norvasc] 10 mg tablet 10 mg PO DAILY Qty: 30 0RF fluticasone propionate 50 mcg/actuation spray,suspension 2 spray INTRANASAL DAILY tiotropium bromide [Spiriva with HandiHaler] 18 mcg capsule, w/inhalation device 1 cap INHALATION DAILY nicotine 21 mg/24 hr patch 24 hour See Rx Instructions .ROUTE .COMPLEX Rx Instructions: apply ONE PATCH TO SKIN ONCE daily FOR 14 DAYS (THEN START 14MG PATCHES) venlafaxine 75 mg capsule,extended release 24hr 75 mg PO DAILY trazodone 50 mg tablet 50 mg PO BEDTIME venlafaxine 150 mg capsule,extended release 24hr 150 mg PO DAILY hydrocodone-acetaminophen 7.5-325 mg tablet 1 tab PO Q6H Changed furosemide 40 mg tablet 40 mg PO Q12H 30 Days Qty: 60 0RF potassium chloride 20 mEq tablet,ER particles/crystals 20 meq PO Q12H 30 Days Qty: 60 0RF Discontinued celecoxib 200 mg capsule 200 mg PO DAILY furosemide 80 mg tablet 80 mg PO DAILY Rx Instructions: take with a 40mg Discharge Order = DC NOW: Discharge Order (Routine); Ordered 11/14/24 Ordered By: Kevyn Mcclain Other Ambulatory Orders: DME: Nebulizer with Neb Kit (Order) Location: None Selected Ordered By: Kevyn Mcclain MCT/Event Monitor 30 Days (Routine) Timeframe: 1 Day Facility: [facility] - Location: Radiology Ordered By: Kevyn Mcclain Referrals: Patricio Jj MD [Primary Care Provider, Family Practice] - 11/18/24 10:45 am Harry Conklin MD [Physician, Cardiology] - 12/16/24 10:30 am Discharge Diet: Cardiac Discharge Activity: Resume usual activity Patient Instructions: Type 2 Diabetes, Nitroglycerin (By mouth), Folic Acid (By mouth) (FA-8, [place], Folacin-800, Methylfolate), Atorvastatin (By mouth) (Lipitor, Atorvaliq), Ipratropium/Albuterol (By breathing), Holter Monitor (GEN), CHF Stoplight, COPD Stoplight, Chest Pain Stoplight, Opioid Safety, Patient Portal & Susy Instructions Activity Restrictions/Additional Instructions: - Please follow-up with primary care provider for type 2 diabetes - Consider Jardiance or GLP-1 analog for type 2 diabetes - Please take Lasix 40 mg twice daily with potassium replacement therapy - Please avoid Celebrex use - If you have recurrent syncope episode please go to emergency room - If you have chest pain please go to emergency room - Please wear that event monitor as prescribed - Please follow-up with cardiology - Please stop smoking - Please avoid alcohol use - Please use DuoNeb sparingly for shortness of breath Discharge Attestations Time Spent in Discharge Care*: greater than 30 min Quality Metrics Clinical Quality Measures [ No reported AMI, CVA or VTE this stay] Coding Level of Care Code 36255 Total time (in minutes) for Discharge: 45 Diagnoses Right flank pain R10.9 Diastolic CHF I50.30 Syncope R55 Type 2 diabetes mellitus E11.9
--- NOTE | 2024-11-14 14:54 | PC.SOCIAL ---
DME Nebulizer Recevied nebulizer order on patient. Choice sheet completed and scanned to Valery Davis to be added to chart. Pre-Cert completed: [id number]. Faxed Order and Pre-Cert to HOME and notified via webex that patient is DCing.
--- NOTE | 2024-11-14 15:56 | PC.NURSE ---
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 Georgie said she will pick it up since they are still in town today. Advice the that he needs the machine for his medication. HOME company did come to deliver the machine in room just now but the pt already left since upon discharge he said he wants to just pick it up sometime this week he'll be back here in [place] anyway.
== END 2024-11-14 15:34 | disposition left against medical advice (07) | DRG 291 ==
LOC: ER 13:39 → CSU 15:37
PROVIDERS: Admitting Provider Family Medicine; Emergency Provider Emergency Medicine; PCP Family Medicine; Visit Provider Family Medicine
DX: I11.0 Hypertensive heart disease with heart failure (principal); I50.43 Acute on chronic combined systolic (congestive) and diastolic (congestive) heart failure; R10.9 Unspecified abdominal pain; R55 Syncope and collapse; E11.9 Type 2 diabetes mellitus without complications; Z53.29 Procedure and treatment not carried out because of patient's decision for other reasons; I25.10 Atherosclerotic heart disease of native coronary artery without angina pectoris; F10.21 Alcohol dependence, in remission; F17.210 Nicotine dependence, cigarettes, uncomplicated; Z79.84 Long term (current) use of oral hypoglycemic drugs
CPT/HCPCS: 36415; 36416; 71045; 71275; 74177; 76705; 80053; 80061; 80306; 80307; 81001; 82962; 82977; 83036; 83605; 83690; 83880; 84145; 84443; 84484; 85025; 86140; 87040; 87205; 87637; 93005; 93306; 93880; 94640; 94664; 96372; 96374; 99285; J1650; J1815; J1938; J2270; J3411; J9999

== ENCOUNTER → 2024-12-13 15:56 | Outpatient (BNVA) | payer MEDICAID, SELFPAY | PROVIDERS: PCP Family Medicine; Visit Provider Orthopaedic Surgery | DX: Z01.818 Encounter for other preprocedural examination (principal); G56.03 Carpal tunnel syndrome, bilateral upper limbs; M54.2 Cervicalgia | CPT/HCPCS: 36415; 72050; 80053; 81001; 83036; 85025 ==

== ENCOUNTER 2024-12-21 14:57 | Outpatient (CLI) | payer MEDICAID, SELFPAY ==
--- NOTE | 2024-12-21 15:05 | CT_ITS ---
WS: [id number] LDCT LUNG CANCER SCREENING TECHNIQUE: Noncontrast CT of the chest with coronal and sagittal reformatted images. CLINICAL INFORMATION: NICOTINE DEPENDENCE,CIGARETTES COMPARISON: None. DLP: 169.19 mGy.cm DIvol: Mean CTDIvol: 4.10 (mGy) All CT scans at [facility] use at least one of these dose optimization techniques: automated exposure control; mA and/or kV adjustment per patient size (includes targeted exams where dose is matched to clinical indication); or iterative reconstruction. FINDINGS: Stable subpleural nodule in the LEFT upper lobe anteriorly measuring 6.5 mm. Stable tiny noncalcified nodule RIGHT upper lobe measuring 3 mm. A few calcified granulomas. No new suspicious pulmonary parenchymal abnormalities. No mediastinal or hilar lymphadenopathy. No axillary lymphadenopathy. Small esophageal hiatal hernia. Normal caliber thoracic aorta. Mild coronary calcification. Adrenal glands are normal. Stable hypertrophic changes thoracic spine. CT/CT lung screening [id number] IMPRESSION: LUNG-RADS: 2-Benign Appearance or Behavior FOLLOW UP: 12 Month: Continue annual screening with LDCT
== END 2024-12-21 14:58 | disposition home or self-care (01) ==
LOC: RAD 14:59
PROVIDERS: PCP Family Medicine; Visit Provider Family Medicine
DX: F17.210 Nicotine dependence, cigarettes, uncomplicated (principal); R91.8 Other nonspecific abnormal finding of lung field; J98.4 Other disorders of lung; K44.9 Diaphragmatic hernia without obstruction or gangrene; M53.84 Other specified dorsopathies, thoracic region
CPT/HCPCS: 71271

== ENCOUNTER → 2024-12-29 17:08 | Outpatient (BNVA) | payer MEDICAID, SELFPAY | PROVIDERS: PCP Family Medicine; Referring Provider Family Medicine; Visit Provider Internal Medicine | DX: T78.40XA Allergy, unspecified, initial encounter (principal); X58.XXXA Exposure to other specified factors, initial encounter | CPT/HCPCS: 36415; 86003 ==

== ENCOUNTER 2025-01-03 10:32 | Outpatient (CLI) | payer MEDICAID, SELFPAY ==
--- NOTE | 2025-01-03 10:57 | ECG_ITS ---
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 Interpretive Statements LEXISCAN SESTAMIBI STRESS TEST Procedure: At the baseline, the blood pressure was 140/91 mmHg with a heart rate of 84 bpm. The electrocardiogram showed normal sinus rhythm, normal axis with normal ST and T's. The Lexiscan was infused over a period of 20 seconds. A total of 0.4 mg of Lexiscan was infused. The stress phase was continued for a total of 5 minutes. Heart rate was at the end of stress phase was 94 bpm and a blood pressure of 132/88 mmHg. The EKG at the peak infusion revealed normal sinus rhythm with no significant ST-T wave changes. Sestamibi was injected 20 seconds after the Lexiscan infusion. Blood pressure at the end of recovery phase was 133/84 mmHg with a heart rate of 90 bpm. Conclusion: 1. Normal EKG response to Lexiscan infusion 2. No Lexiscan induced chest pain or cardiac arrhythmia. 3. Normal blood pressure and heart rate response. 4. Sestamibi/sestamibi perfusion scan pending; see separate report. Electronically Signed On 01-10-2025 10:45:56 QUARTER SEAMER by Matthieu Briones M.D. [email or web address]
--- NOTE | 2025-01-03 10:57 | NMCV_ITS ---
NM fatemeh perf SPECT r/s* [id number] KarlRohith mccarthy Age: 54 Gender: M : 1970 Exam Date: 01/03/2025 11:26 Ordering Phys: Harry Conklin MD ([email or web address]) Technologist: JEAN PIERRE Gao Exam Location: [facility] Indications: cp STRESS TEST Please see separate stress test report in [facility] for full findings IMAGE PROTOCOL Rest/Stress 1 Lexiscan Day Radiopharmaceutical Dose (mCi) Administration Site Administered by Rest: Tc-99m 10.4 IV JEAN PIERRE Gao Sestamibi Stress:Tc-99m 33 IV JEAN PIERRE Perez Sestamibi Rest: 03-Jan-2025 60 Discovery 630 Stress: 03-Jan-2025 30 Discovery 630 0.4mg Lexiscan. Images obtained in supine and prone position. SPECT RESULTS Technical Quality: Good Raw Data Analysis: Normal Image Corrections: No attenuation or motion correction applied Summed Stress Score: 2 Summed Rest Score: 10 Summed Difference Score: 0 PERFUSION FINDINGS Small area of fixed perfusion defect is seen in apical and apical lateral cagle. This is consistent with small area of prior infarct in these territories. No evidence of ischemia. FUNCTIONAL RESULTS (calculated via Gated SPECT) Stress Image LV EF (%): 51 Stress EDV (mL):142 TID: 1.21 Stress ESV (mL):69 FUNCTIONAL FINDINGS: There is normal left ventricular systolic function. TID ratio is elevated and is 1.21 IMPRESSIONS 1. Small area of prior infarct seen in the apical and apical lateral cagle. No evidence of ischemia 2. LV systolic function is normal. 3. TID ratio is elevated and is 1.21 Matthieu Briones MD (Electronically Signed) Final Date: 07 January 2025 11:03 S
[2025-01-03 10:58] VITALS: BMI 36.3
[2025-01-03 12:03] VITALS: BP 133/89; PULSE 94
== END 2025-01-03 10:33 | disposition home or self-care (01) ==
LOC: CDL 10:33
PROVIDERS: PCP Family Medicine; Visit Provider Internal Medicine Cardiovascular Disease
DX: R07.9 Chest pain, unspecified (principal)
CPT/HCPCS: 36415; 78452; 93017; 96374; A9500; J2785

== ENCOUNTER → 2025-01-05 13:05 | Outpatient (BNVA) | payer MEDICAID, SELFPAY | PROVIDERS: PCP Family Medicine; Visit Provider Internal Medicine | DX: R76.89 Other specified abnormal immunological findings in serum (principal) | CPT/HCPCS: 87305 ==

== ENCOUNTER → 2025-01-17 10:13 | Outpatient (BNVA) | payer MEDICAID, SELFPAY | PROVIDERS: PCP Family Medicine; Visit Provider Internal Medicine Cardiovascular Disease | DX: I25.10 Atherosclerotic heart disease of native coronary artery without angina pectoris (principal); I50.20 Unspecified systolic (congestive) heart failure; I11.0 Hypertensive heart disease with heart failure; R55 Syncope and collapse; R05.4 Cough syncope; R58 Hemorrhage, not elsewhere classified | CPT/HCPCS: 80048; 85025; 85610 ==